=== PATIENT | female | born 1965 | race Caucasian/White ===

== ENCOUNTER 2022-01-01 09:08 | Emergency (ER) | payer SELFPAY ==
[2022-01-01 09:10] VITALS: BP 167/93; PULSE 69; RESP 17; TEMP 35.7; O2SAT 97; BMI 27.8
--- NOTE | 2022-01-01 09:47 | ED.VIS.GI ---
HPI HPI - GI History of Present Illness Chief Complaint: Nausea/Vomiting/Diarrhea Narrative Narrative: 56-year-old female presenting with diffuse crampy abdominal pain, nausea, vomiting. Patient states that this all started on Saturday. The last meal she ate was a cheeseburger for lunch at a place where she normally goes. She states that about 5 PM she started having nausea and vomiting. Over the course of the last 2 days has not been able to hold food or fluids. She thinks she is dehydrated. She did have diarrhea this morning. She denies black or bloody stools. She denies hematemesis or coffee-ground emesis. She has no urinary complaints other than decreased urinary output. She has no cough, fever, shortness of breath. She does admit to sensation of chills. [facility] Medical History (Updated 01/01/22 @ 09:32 by Alejandra Meza) Anxiety GERD (gastroesophageal reflux disease) Hypertension Home Medications duloxetine 60 mg PO DAILY 08/12/17 [History Last Taken Unknown] omeprazole 40 mg capsule,delayed release 40 mg PO DAILY #30 cap 12/24/17 [Rx Last Taken Unknown] famotidine [Pepcid] 20 mg PO DAILY PRN #14 tab 01/01/22 [Rx Last Taken Unknown] gabapentin 1,200 mg PO DAILY 01/01/22 [History Last Taken Unknown] hydroxyzine HCl 25 mg PO BID 01/01/22 [History Last Taken Unknown] metoprolol succinate 50 mg PO DAILY 01/01/22 [History Last Taken Unknown] ondansetron 4 mg PO Q8H PRN #14 tab 01/01/22 [Rx Last Taken Unknown] Allergy/AdvReac Type Severity Reaction Status Date / Time codeine AdvReac very hard Verified 01/01/22 09:09 to awaken Iodine and Iodide Containing AdvReac Hives Verified 01/01/22 09:09 Produc Penicillins AdvReac Rash Verified 01/01/22 09:09 Social History Smoking Status: Former smoker ROS ROS ED Constitutional Constitutional ED: Reports chills; Denies fever(s) ENT ENT ED: Denies rhinorrhea or sore throat Cardiovascular Cardiovascular: Denies chest pain or palpitations Respiratory/Chest Respiratory/Chest: Denies cough, dyspnea or dyspnea on exertion Gastrointestinal Gastrointestinal: Reports abdominal pain, diarrhea, nausea and vomiting Genitourinary Genitourinary ED: Denies dysuria or hematuria Musculoskeletal Musculoskeletal: Reports myalgias; Denies arthralgias Integumentary Denies Abrasions or rash Neurologic Neurologic: Denies headache(s) or paresthesias EXAM Physical Exam Const Vital Signs: 01/01/22 09:10 Temperature 96.3 F L Temperature Source Temporal Pulse Rate 69 Respiratory Rate 17 Blood Pressure 167/93 H Blood Pressure Mean 117 Pulse Ox 97 Oxygen Delivery Method Room Air Positive well nourished General Appearance ED: NAD; Negative for pallor HEENT Reports moist mucous membranes normocephalic Eyes PERRL and EOMs intact bilaterally Resp normal respiratory effort and clear to auscultation bilaterally Cardio regular rate and regular rhythm GI non-distended Inspection: Negative for abdominal distention Auscultation: hyperactive bowel sounds Palpation: soft Back/Spine no CVA tenderness Neuro Sensorium / Orientation: alert, oriented to person, oriented to place and oriented to time Psych mental status grossly normal and thought process normal Skin General Skin Exam: Negative for jaundice or pallor MDM MDM MDM Narrative Medical decision making narrative: Patient presented with nausea, vomiting since Saturday. Her abdominal exam is benign. Vital signs are stable she is afebrile. She is given IV fluids, morphine, Zofran, Pepcid. Blood work is obtained and the patient has no leukocytosis. Hemoglobin is slightly hemoconcentrated at 17.3. Platelets are normal at 371. LFTs are normal. Renal function electrolytes are normal. Urinalysis is negative for infection. Rapid Covid 19 is negative. Patient reevaluated at 11:50 AM and she is feeling very much improved. She is had some water and some ice. She feels well enough to go home. He is counseled on bland diet for today as well as at this for hydrating. Patient will be discharged home with Zofran and Pepcid. She can return precautions. Impression: 1. Nausea/vomiting Lab Data Attestation: I reviewed the patient's lab results. Labs: Laboratory Results - last 24 hr 01/01/22 01/01/22 01/01/22 09:21 09:21 11:13 WBC 9.0 RBC 5.37 Hgb 17.3 H Hct 51.1 H MCV 95.2 MCH 32.2 H MCHC 33.9 RDW Std Deviation 44.6 H RDW Coeff of Pantera 12.7 Plt Count 371 MPV 9.5 Immature Gran % (Auto) 0.200 Neut % (Auto) 74.9 H Lymph % (Auto) 17.2 L [place] % (Auto) 7.3 Eos % (Auto) 0.1 Baso % (Auto) 0.3 Absolute Neuts (auto) 6.7 Absolute Lymphs (auto) 1.55 Nucleated RBC % 0 Sodium 139 Potassium 3.5 Chloride 104 Carbon Dioxide 26.0 Anion Gap 9 BUN 14 Creatinine 0.82 Estim Creat Clear Calc 61.86 Est GFR (MDRD) Af Amer 92 Est GFR (MDRD) Non-Af 76 BUN/Creatinine Ratio 17.1 Glucose 125 H Calcium 9.5 Total Bilirubin 0.70 AST 19 ALT 29 Alkaline Phosphatase 109 Total Protein 7.9 Albumin 3.9 Globulin 4.0 Albumin/Globulin Ratio 1.0 Lipase 64 L Urine Color Yellow Urine Clarity Clear Urine pH 6.0 Ur Specific [place] 1.020 Urine Protein 30 H Urine Glucose (UA) Normal Urine Ketones 50 H Urine Occult Blood Negative Urine Nitrite Negative Urine Bilirubin 1 H Urine Urobilinogen 1 H Ur Leukocyte Esterase 25 H Urine RBC 0 SEEN Urine WBC 0 SEEN Ur Squamous Epith Cells 0 SEEN Amorphous Sediment 2+ Urine Bacteria 0 SEEN Urine Mucus 0 SEEN Discharge Plan Triage Chief Complaint: Nausea/Vomiting/Diarrhea ED Provider: Yonatan Torres Dx/Rx/DC Orders Prescriptions: New ondansetron 4 mg tablet,disintegrating 4 mg PO Q8H PRN (Reason: nausea and vomiting) Qty: 14 RF: 0 famotidine [Pepcid] 20 mg tablet 20 mg PO DAILY PRN (Reason: acid reflux) Qty: 14 RF: 0 No Action duloxetine 30 MG capsule 60 mg PO DAILY RF: 0 metoprolol succinate 50 mg tablet extended release 24 hr 50 mg PO DAILY RF: 0 hydroxyzine HCl 25 mg tablet 25 mg PO BID RF: 0 gabapentin 100 mg capsule 1,200 mg PO DAILY RF: 0 omeprazole 40 MG capsule 40 mg PO DAILY Qty: 30 RF: 1 Primary Care Provider: Lisa Johnson Referrals: Lisa Johnson MD [Primary Care Provider] - Disposition Disposition: Home, Self Care
[2022-01-01 09:52] LABS: Absolute Lymphocyte Count 1.55 X10^3/uL (0.83-4.51); Absolute Neutrophil Count 6.7 X10^3/uL (2.0-7.7); Basophil# 0.03 X10^3/uL; Basophil% 0.3 % (0-1); Eosinophil# 0.01 X10^3/uL; Eosinophils% 0.1 % (0-5); Hematocrit 51.1 % (37-47); Hemoglobin 17.3 g/dL (12.0-15.0); Lymphocyte # 1.55 X10^3/ul (0.83-4.51); Lymphocyte % 17.2 % (19-41); Mean Corp Hgb Conc 33.9 g/dL (32-36); Mean Corpuscular Hgb 32.2 pg (27.0-32.0); Mean Corpuscular Volume 95.2 fL (81-99); Mean Platelet Vol. 9.5 fl (6.2-12.0); Monocyte# 0.66 X10^3/uL; Monocyte% 7.3 % (0-10); NRBC Flagged by Analyzer 0 % (0-5); Neutrophil # 6.73 X10^3/uL (2.7-7.7); Neutrophil % 74.9 % (47-70); Platelet Count 371 K/mm3 (150-450); RBC Distribution Width CV 12.7 % (11.6-14.6); RBC Distribution Width SD 44.6 fl (35.1-43.9); Red Blood Count 5.37 M/mm3 (4.2-5.4)
[2022-01-01] MEDS: Ondansetron 4 MG/2 ML Vial IV (10:02)
[2022-01-01] MEDS: Morphine 4 MG/ML Syringe IV (10:02)
[2022-01-01] MEDS: 0.9% Normal Saline 1,000 ML 1000 ML IV (10:02)
[2022-01-01 10:08] LABS: AST(SGOT) 19 U/L (15-37); Alanine Aminotransfer ALT/SGPT 29 U/L (13-56); Albumin, Serum 3.9 g/dL (3.2-5.0); Alkaline Phosphatase 109 U/L (45-117); Anion Gap 9 (5-15); BUN 14 mg/dL (7-18); BUN/Creat Ratio 17.1 RATIO (10-20); Calcium,Total 9.5 mg/dL (8.5-10.1); Chloride 104 mmol/L (98-107); Creatinine, Serum 0.82 mg/dL (0.55-1.02); EST Glomerular Filtration Rate 76 mL/min (>60); Est Glom Filt Rate - Afr Amer 92 mL/min (>60); Estimated Creatinine Clearance 61.86 ml/min; Glucose 125 mg/dL (74-106); Lipase 64 U/L (73-393); Potassium 3.5 mmol/L (3.5-5.1); Protein, Total 7.9 g/dL (6.4-8.2); Sodium Level 139 mmol/L (136-145)
[2022-01-01] MEDS: Famotidine 200 MG/20 ML MDV 20 MG in 0.9% Normal Saline (Pres. free 8 ML 300 MG IV (11:10)
[2022-01-01 11:23] LABS: Bacteria 0 SEEN /hpf (None Seen); Mucous, Urine 0 SEEN /hpf (<or=2+); Red Blood Cells-Urine 0 SEEN /hpf (0-5); Squamous Epithelial Cells - UA 0 SEEN /hpf (5-10); White Blood Cells 0 SEEN /hpf (0-5)
[2022-01-01 11:27] LABS: Color, Urine Yellow (Yellow); Glucose, Dipstick Normal (Normal); Ketone-Dipstick 50 mg/dl (Negative); Leukocyte Esterase-Dipstick 25 /ul (Negative); Nitrite-Dipstick Negative (Negative); Occult Blood-Urine Negative /ul (Negative); Protein-Dipstick 30 mg/dl (Negative); Urine Clarity Clear (Clear); Urine Urobilinogen 1 mg/dl (Normal)
[2022-01-01 11:32] LABS: Urine Bilirubin Dipstick 1 mg/dL (Negative)
[2022-01-01 11:35] LABS: Amorphous Sediment 2+
[2022-01-01 12:27] VITALS: BP 157/95; PULSE 66; RESP 16; O2SAT 98
== END 2022-01-01 23:59 | disposition home or self-care (01) ==
PROVIDERS: Emergency Provider Student in an Organized Health Care Education/Training Program; PCP Family Medicine; Visit Provider Student in an Organized Health Care Education/Training Program
DX: R11.2 Nausea with vomiting, unspecified (principal); R19.7 Diarrhea, unspecified; R10.84 Generalized abdominal pain; I10 Essential (primary) hypertension; Z20.822 Contact with and (suspected) exposure to COVID-19; F41.9 Anxiety disorder, unspecified; Z79.899 Other long term (current) drug therapy; Z87.891 Personal history of nicotine dependence
CPT/HCPCS: 80053; 81001; 83690; 85025; 87426; 96361; 96374; 96375; 99283; J7030; A4216; J2405; J3490

== ENCOUNTER → 2023-03-12 | Outpatient (CLI) | payer OTHER, MEDICAID, SELFPAY ==
--- NOTE | 2023-03-12 10:33 | RAD_ITS ---
STUDY: X-RAY - RIGHT CLAVICLE REASON FOR EXAM: Female, 57 years old. PAIN IN RIGHT SHOULDER TECHNIQUE: 2 view(s) of the clavicle. COMPARISON: None. FINDINGS: Normal clavicle. Normal acromioclavicular articulation. Normal visualized sternoclavicular articulation. Normal visualized pulmonary apex. RAD/Clavicle IMPRESSION: Normal x-ray examination of the clavicle. Electronically Signed: Gilbert Cuellar MD at 18:37 EDT ,
--- NOTE | 2023-03-12 10:43 | RAD_ITS ---
INDICATION: PAIN IN RIGHT SHOULDER EXAMINATION/TECHNIQUE: X-RAY - RIGHT XR Shoulder Min 2 Views 5 VIEWS COMPARISON: None FINDINGS: SOFT TISSUES: No soft tissue swelling or gas. No radiopaque foreign body. BONES/JOINTS: No acute fracture or subluxation. Glenohumeral and coracoclavicular relationships are maintained. Mild acromioclavicular joint space narrowing and small osteophytes. No sclerotic or destructive changes observed. RAD/Shoulder min 2 Views IMPRESSION: Acromioclavicular DJD. Electronically Signed: Danny Au MD at 18:05 EDT ,
[2023-03-12 11:25] LABS: Hemoglobin 15.9 g/dL (12.0-15.0); Mean Corp Hgb Conc 33.8 g/dL (32-36); Mean Corpuscular Hgb 33.3 pg (27.0-32.0); Mean Corpuscular Volume 98.5 fL (81-99); Mean Platelet Vol. 9.1 fl (6.2-12.0); Platelet Count 308 K/mm3 (150-450); RBC Distribution Width CV 13.9 % (11.6-14.6); RBC Distribution Width SD 51.1 fl (35.1-43.9); Red Blood Count 4.77 M/mm3 (4.2-5.4); White Blood Count 5.6 K/mm3 (4.4-11.0)
[2023-03-12 11:45] LABS: Hemoglobin A1c 5.5 % (3.8-5.6)
[2023-03-12 12:06] LABS: ALB/GLOB Ratio 0.9 RATIO (0.9-2.4); AST(SGOT) 20 U/L (15-37); Alanine Aminotransfer ALT/SGPT 18 U/L (13-56); Albumin, Serum 3.7 g/dL (3.2-5.0); Alkaline Phosphatase 122 U/L (45-117); BUN 13 mg/dL (7-18); BUN/Creat Ratio 15.3 RATIO (10-20); Calcium,Total 9.4 mg/dL (8.5-10.1); Creatinine, Serum 0.85 mg/dL (0.55-1.02); EST Glomerular Filtration Rate 72 mL/min (>60); Est Glom Filt Rate - Afr Amer 88 mL/min (>60); Globulin 4.1 g/dL (2.2-4.2); Glucose 108 mg/dL (74-106); Lipase 30 U/L (13-75); Protein, Total 7.8 g/dL (6.4-8.2)
[2023-03-12 12:07] LABS: Anion Gap 8 (5-15); Chloride 102 mmol/L (98-107); Cholesterol 281 mg/dL (200); High Density Lipoprotein 78 mg/dL; Magnesium 2.5 mg/dL (1.6-2.6); Potassium 3.5 mmol/L (3.5-5.1); Sodium Level 136 mmol/L (136-145); Thyroid Stim Hormone (TSH) 5.53 uIU/mL (0.358-3.74); Triglycerides 182 mg/dL; Very Low Density Lipoprotein 36 mg/dL (5-40)
== END | disposition home or self-care (01) ==
DX: M25.511 Pain in right shoulder (principal); I10 Essential (primary) hypertension; E78.5 Hyperlipidemia, unspecified; F10.10 Alcohol abuse, uncomplicated; E55.9 Vitamin D deficiency, unspecified; R73.03 Prediabetes; K21.9 Gastro-esophageal reflux disease without esophagitis
CPT/HCPCS: 36415; 73000; 73030; 80053; 80061; 82306; 83036; 83690; 83735; 84443; 85027

== ENCOUNTER 2023-06-07 18:19 | Inpatient (IN) | payer OTHER, MEDICAID, SELFPAY ==
[2023-06-07 18:21] VITALS: BP 152/89; PULSE 89; RESP 17; TEMP 36.7; O2SAT 99; BMI 27.8
--- NOTE | 2023-06-07 19:39 | HP.PCM.HOS_ITS ---
HPI - General General Date of Admission: 06/07/23 Date of Service: 06/07/23 Chief Complaint: EtOH abuse/withdrawal. HPI Narrative The patient is a 58 y/o F w/ PMHx: Overweight, HLD, HTN, GERD, Anxiety and Depression, Tobacco use, EtOH abuse (3 bottles, smaller of crown daily), Cannabis use who presents to the [facility] ED on 06/07/23 with history of onset acute EtOH withdrawal, onset starting late afternoon/early evening on day of presentation following last EtOH intake AM of day of presentation with onset of nausea, tremors, agitation, tactile disturbances. Patient interested in attaining sober status. Work-up in the ED included T98.1, heart rate 89, BP 152/89, respiratory rate 17, 99% on room air, see see with WC 6.0, and 114.9, platelet 318 without marked shift, CMP unremarkable, UDS with positive cannabis, urine test negative, ethyl alcohol level 146. COUNT INCLUDES THE [facility] Medical History (Updated 06/07/23 @ 21:[address] Jennifer Jeffries MD) Alcohol abuse Anxiety and depression GERD (gastroesophageal reflux disease) Hyperlipidemia Hypertension Overweight Tobacco use Vocal cord disease Home Medications duloxetine 30 mg capsule,delayed release 60 mg PO DAILY 08/12/17 [History Last Taken Unknown] omeprazole 40 mg capsule,delayed release 40 mg PO DAILY #30 caps 12/24/17 [Rx Last Taken Unknown] famotidine 20 mg tablet (Pepcid) 20 mg PO DAILY PRN acid reflux #14 tabs 01/01/22 [Rx Last Taken Unknown] gabapentin 100 mg capsule 1,200 mg PO DAILY 01/01/22 [History Last Taken Unknown] hydroxyzine HCl 25 mg tablet 25 mg PO BID 01/01/22 [History Last Taken Unknown] metoprolol succinate 50 mg tablet,extended release 24 hr 50 mg PO DAILY 01/01/22 [History Last Taken Unknown] ondansetron 4 mg disintegrating tablet 4 mg PO Q8H PRN nausea and vomiting #14 tabs 01/01/22 [Rx Last Taken Unknown] amitriptyline 50 mg tablet 50 mg PO QHS 06/07/23 [History Last Taken Unknown] atorvastatin 10 mg tablet 10 mg PO QHS 06/07/23 [History Last Taken Unknown] clonidine HCl 0.1 mg tablet 0.1 mg PO BID PRN anxiety 06/07/23 [History Last Taken Unknown] lisinopril 5 mg tablet 5 mg PO DAILY 06/07/23 [History Last Taken Unknown] Allergy/AdvReac Type Severity Reaction Status Date / Time codeine AdvReac very hard Verified 01/01/22 09:09 to awaken Iodine and Iodide Containing AdvReac Hives Verified 01/01/22 09:09 Produc Penicillins AdvReac Rash Verified 01/01/22 09:09 Family History (Updated 06/07/23 @ 21:[address] Jennifer Jeffries MD) Mother CVA (cerebral vascular accident) Hypertension Heart disease Diabetes Father Alcoholism Surgical History (Updated 06/07/23 @ 21:[address] Jennifer Jeffries MD) H/O rectal polypectomy History of oral surgery S/P foot surgery, right Social History (Updated 06/07/23 @ 21:[address] Jennifer Jeffries MD) household members: none Smoking Status: Current every day smoker tobacco type: cigarettes Smoking packs per day: 0.75 Smoking cigarettes per day: 15.0 alcohol intake: current alcohol intake frequency: 3 or more drinks per day details: Several crown drinks daily. substance use type: marijuana ROS ROS Narrative Admission Review of Systems: CONSTITUTIONAL: No weight loss, fever, chills, + weakness or fatigue. HEENT: + Strabismus. Eyes: No visual loss, blurred vision, double vision or yellow sclerae. Ears, Nose, Throat: No hearing loss, sneezing, congestion, runny nose or sore throat. SKIN: No rash or itching, lesions, wounds. CARDIOVASCULAR: No chest pain, chest pressure or chest discomfort, palpitations, edema, orthopnea, syncopal events. RESPIRATORY: No shortness of breath, cough or sputum, wheezing, hemoptysis. GASTROINTESTINAL: + anorexia, nausea. No vomiting or diarrhea, abdominal pain, melena, BRBPR. GENITOURINARY: No dysuria, frequency, urgency or retention. NEUROLOGICAL: + Mild tremors, mild tactile disturbances. No headache, dizziness, syncope, paralysis, ataxia, numbness or tingling in the extremities, focal weakness, change in bowel or bladder control, seizure. MUSCULOSKELETAL: No muscle, back pain, joint pain or stiffness. HEMATOLOGIC: No anemia, bleeding or bruising. LYMPHATICS: No enlarged nodes. No history of splenectomy. PSYCHIATRIC: + history of depression or anxiety. ENDOCRINOLOGIC: No reports of sweating, cold or heat intolerance. No polyuria or polydipsia. ALLERGIES: + history of hives. Vital Signs Vital Signs Vital Signs: 06/07/23 18:21 Temperature 98.1 F Temperature Source Temporal Pulse Rate 89 Respiratory Rate 17 Blood Pressure 152/89 H Blood Pressure Mean 110 Pulse Ox 99 Oxygen Delivery Method Room Air Weight Weight: 157 lb 1.6 oz Body Mass Index (BMI) 27.8 Physical Exam Narrative Physical Examination: General: Awake, alert, oriented x 3 and cooperative, seated upright in the ED bed, fatigued, mildly tremulous and restless. Skin: Normal color, normal turgor, no icterus, no cyanosis. HEENT: AT/NC, EOMI, PERRLA, moderately dry MM, noted strabismus which is chronic, no carotid bruits or JVD noted. Lungs: CTA bilaterally, moderate effort, mild decrease BL bases, no rales, ro nchi or wheezing. Heart: Regular rate and rhythm; no gallop, rub audible. Abdomen: Soft, mild generalized discomfort but no rebound or guarding and more so in the right upper quadrant/epigastric region, ND, hyperactive BS, + appreciated mild HM. Extremities: No cyanosis, clubbing, or edema. Neurological: Patient awake, alert, oriented as noted, cognitive function intact; pupils equally reactive to light and accommodation, cranial nerves II- XII grossly normal, moving all 4 extremities, no focal deficits, strength moderately globally decreased secondary to acute presentation, mildly tremulous, mild tactile disturbances noted. Psychiatric: Affect appears fatigued, no acute evidence of depressive or anxiety feelings but does have underlying history. Results Lab / Micro Data 06/07/23 19:40 06/07/23 19:40 Assessment & Plan Assessment/Plan (1) Alcohol withdrawal: PLAN: Plan The patient is a 58 y/o F w/ PMHx: Overweight, HLD, HTN, GERD, Anxiety and Depression, Tobacco use, EtOH abuse (3 bottles, smaller of crown daily), Cannabis use who presents to the [facility] ED on 06/07/23 with history of onset acute EtOH withdrawal. #1. Acute EtOH Withdrawal: Will admit to medical surgical floor, ED labs obtained with no acute concerning findings, UDS with positive cannabis otherwise not marked, at the alcohol level initial 146. Given interest in sobriety, will initiate and continue on protocol with taper course of Phenobarbital, as needed gabapentin, Catapres, Bentyl, Vistaril, IV fluids, IV antiemetics, Tylenol as needed for pain. Will consult Case management for assistance for transition to n ext level of rehabilitation care. Mag, phos pending. Maintain on CIWA protocol concurrently. #2. Anxiety and depression: We will continue patient home low-dose hydroxyzine regimen as well as duloxetine. Additionally would benefit from aggressive counseling as likely contributing to her substance abuse. Clarifying but patient also previously noted to be on amitriptyline 50 mg nightly, will add if appropriate. #3. Hypertension: Continue home regimen including metoprolol, lisinopril, PRN hydralazine. #4. Hyperlipidemia: Continue home statin regimen. #5. Overweight: Weight loss and lifestyle changes encouraged. #6. Tobacco Abuse: Encouraged cessation, inpatient consultation per RT, NR if desired. #7. GERD: We will continue patient on PPI. #8. DVT prophylaxis: Low risk. Charges/Coding Visit Charges Inpatient E&M: 69293 Init Hosp L2
--- NOTE | 2023-06-07 19:44 | EX.ED.DYSGE1 ---
HPI History of Present Illness Chief Complaint: Substance Abuse Detail of Chief Complaint: [facility] for alcohol detox Informant: patient and family Onset/Context/Timing Onset: - (Years) Context: Sudden Onset Timing: Continuous Quality: Drink of choice is whiskey. Less than a pint a day Location: Home Current Severity: Mild Maximum Severity: Severe Worsened by: Abstinence Relieved by: Drinking alcohol Associated Symptoms Associated Symptoms: Presently none Narrative Narrative: Patient is a 58-year-old woman who is never been in detox. She has history of peptic ulcer disease, hypertension, neuropathy who presents for inpatient therapy of detox. She drinks slightly less than a pint of whiskey a day. She has been drinking for many years. She denies hematuria, bleeding of her gums, bruising easily black or maroon stool. Her last drink was approximately 0930. Prior similar symptoms: No Recent Illness/Hospitalization: No PFSH PFSH Medical History Alcohol abuse Anxiety and depression GERD (gastroesophageal reflux disease) Hyperlipidemia Hypertension Overweight Tobacco use Home Medications duloxetine 30 mg capsule,delayed release 60 mg PO DAILY 08/12/17 [History Last Taken Unknown] omeprazole 40 mg capsule,delayed release 40 mg PO DAILY #30 caps 12/24/17 [Rx Last Taken Unknown] famotidine 20 mg tablet (Pepcid) 20 mg PO DAILY PRN acid reflux #14 tabs 01/01/22 [Rx Last Taken Unknown] gabapentin 100 mg capsule 1,200 mg PO DAILY 01/01/22 [History Last Taken Unknown] hydroxyzine HCl 25 mg tablet 25 mg PO BID 01/01/22 [History Last Taken Unknown] metoprolol succinate 50 mg tablet,extended release 24 hr 50 mg PO DAILY 01/01/22 [History Last Taken Unknown] ondansetron 4 mg disintegrating tablet 4 mg PO Q8H PRN nausea and vomiting #14 tabs 01/01/22 [Rx Last Taken Unknown] amitriptyline 50 mg tablet 50 mg PO QHS 06/07/23 [History Last Taken Unknown] atorvastatin 10 mg tablet 10 mg PO QHS 06/07/23 [History Last Taken Unknown] clonidine HCl 0.1 mg tablet 0.1 mg PO BID PRN anxiety 06/07/23 [History Last Taken Unknown] lisinopril 5 mg tablet 5 mg PO DAILY 06/07/23 [History Last Taken Unknown] Allergy/AdvReac Type Severity Reaction Status Date / Time codeine AdvReac very hard Verified 01/01/22 09:09 to awaken Iodine and Iodide Containing AdvReac Hives Verified 01/01/22 09:09 Produc Penicillins AdvReac Rash Verified 01/01/22 09:09 Social History (Updated 06/07/23 @ 19:[address] Adam Mccormick MD) Smoking Status: Current every day smoker tobacco type: cigarettes alcohol intake: current alcohol intake frequency: other substance use type: does not use ROS ROS ED Constitutional Constitutional ED: Reports sweats; Denies chills, fever(s), subjective or weight loss Eyes Eyes: Denies blurry vision, change in vision or diplopia ENT ENT ED: Denies ear pain, rhinorrhea or sore throat Cardiovascular Cardiovascular: Reports palpitations and racing heartbeat; Denies chest pain Respiratory/Chest Respiratory/Chest: Denies cough, dyspnea or dyspnea on exertion Gastrointestinal Gastrointestinal: Denies abdominal pain, nausea or vomiting Genitourinary Genitourinary ED: Denies dysuria, hematuria or urinary frequency Musculoskeletal Musculoskeletal: Denies arthralgias, back pain, myalgias or neck pain Neurologic Neurologic: Denies headache(s), paresthesias or weakness Psychiatric Psychiatric: Denies anxiety or depression Hematologic/Lymphatic Hematologic/Lymphatic: Reports systems reviewed and no addt'l complaints, except as documented EXAM Physical Exam Const Vital Signs: 06/07/23 18:21 Temperature 98.1 F Temperature Source Temporal Pulse Rate 89 Respiratory Rate 17 Blood Pressure 152/89 H Blood Pressure Mean 110 Pulse Ox 99 Oxygen Delivery Method Room Air Positive well nourished and well developed General Appearance ED: well developed; Negative for pallor HEENT Reports moist mucous membranes Eyes PERRL and EOMs intact bilaterally General Eye ED: Negative for pale conjunctiva or scleral icterus Neck no lymphadenopathy, supple and no JVD Chest Wall inspection of chest normal and palpation of chest normal Resp normal respiratory effort and clear to auscultation bilaterally Cardio regular rate, regular rhythm, S1 normal heart sound, S2 normal heart sound and no murmurs GI normal to inspection, nondistended, normoactive bowel sounds, non-tender, non-distended and no masses; Negative for hepatosplenomegaly Back/Spine no CVA tenderness Extremity normal to inspection Neuro oriented x3 and CN's II-XII intact bilaterally Sensorium / Orientation: alert Psych mental status grossly normal Skin no rashes or lesions noted, no wounds and skin turgor normal General Skin Exam: Negative for jaundice or pallor MDM MDM MDM Narrative Medical decision making narrative: Action medicine order set was initiated. We will assess liver enzymes, rule out anemia, assess for thrombocytopenia. Patient has presently no symptoms of withdrawal. She does have symptoms of withdrawal when she does not drink. She has awakened in the morning with shakes, palpitations, rapid heartbeat and sweats. She states those symptoms resolved when she drinks. She is not had a drink since 9:30 AM. Will discuss case with hospitalist and plan is admission to [facility] for alcohol dependency and abuse. Lab Data Attestation: I reviewed the patient's lab results. Lab results narrative: CBC is normal. Comprehensive metabolic panel is normal. Urine tox is positive for cannabis. test was negative. Labs: Laboratory Results - last 24 hr 06/07/23 06/07/23 19:40 20:10 WBC 6.0 RBC 4.65 Hgb 14.9 Hct 44.7 MCV 96.1 MCH 32.0 MCHC 33.3 RDW Std Deviation 45.2 H RDW Coeff of [place]tera 12.8 Plt Count 318 MPV 8.6 Immature Gran % (Auto) 0.300 Neut % (Auto) 52.7 Lymph % (Auto) 39.5 [place] % (Auto) 6.5 Eos % (Auto) 0.7 Baso % (Auto) 0.3 Absolute Neuts (auto) 3.1 Absolute Lymphs (auto) 2.36 Nucleated RBC % 0 Sodium 142 Potassium 3.5 Chloride 106 Carbon Dioxide 28.0 Anion Gap 8 BUN 8 Creatinine 0.79 Estim Creat Clear Calc 62.64 Est GFR (MDRD) Af Amer 96 Est GFR (MDRD) Non-Af 79 BUN/Creatinine Ratio 10.2 Glucose 88 Calcium 8.9 Phosphorus 3.3 Magnesium 2.6 Total Bilirubin 0.20 AST 23 ALT 33 Alkaline Phosphatase 114 Total Protein 7.6 Albumin 3.8 Globulin 3.8 Albumin/Globulin Ratio 1.0 Urine Test Negative Urine Opiates Screen NEGATIVE Urine Methadone Screen NEGATIVE Ur Barbiturates Screen NEGATIVE Ur Phencyclidine Scrn NEGATIVE Ur Amphetamines Screen NEGATIVE MDMA (Ecstasy) Screen NEGATIVE U Benzodiazepines Scrn NEGATIVE Urine Cocaine Screen NEGATIVE U Cannabinoids Screen POSITIVE H Ur Drug Screen Comment Discharge Plan Dx/Rx/DC Orders Clinical Impression: Anxiety with depression, Alcohol abuse with physiological dependence, History of gastroesophageal reflux (GERD) Disposition Disposition: Acute Care Hospital [facility] [place]
[2023-06-07 19:54] LABS: Absolute Lymphocyte Count 2.36 X10^3/uL (0.83-4.51); Absolute Neutrophil Count 3.1 X10^3/uL (2.0-7.7); Basophil# 0.02 X10^3/uL; Basophil% 0.3 % (0-1); Eosinophil# 0.04 X10^3/uL; Eosinophils% 0.7 % (0-5); Hematocrit 44.7 % (37-47); Hemoglobin 14.9 g/dL (12.0-15.0); Lymphocyte # 2.36 X10^3/ul (0.83-4.51); Lymphocyte % 39.5 % (19-41); Mean Corp Hgb Conc 33.3 g/dL (32-36); Mean Corpuscular Volume 96.1 fL (81-99); Mean Platelet Vol. 8.6 fl (6.2-12.0); Monocyte# 0.39 X10^3/uL; Monocyte% 6.5 % (0-10); NRBC Flagged by Analyzer 0 % (0-5); Neutrophil # 3.14 X10^3/uL (2.7-7.7); Neutrophil % 52.7 % (47-70); Platelet Count 318 K/mm3 (150-450); RBC Distribution Width CV 12.8 % (11.6-14.6); RBC Distribution Width SD 45.2 fl (35.1-43.9); Red Blood Count 4.65 M/mm3 (4.2-5.4)
[2023-06-07 20:11] LABS: AST(SGOT) 23 U/L (15-37); Alanine Aminotransfer ALT/SGPT 33 U/L (13-56); Albumin, Serum 3.8 g/dL (3.2-5.0); Alkaline Phosphatase 114 U/L (45-117); Anion Gap 8 (5-15); BUN 8 mg/dL (7-18); BUN/Creat Ratio 10.2 RATIO (10-20); Calcium,Total 8.9 mg/dL (8.5-10.1); Chloride 106 mmol/L (98-107); Creatinine, Serum 0.79 mg/dL (0.55-1.02); EST Glomerular Filtration Rate 79 mL/min (>60); Est Glom Filt Rate - Afr Amer 96 mL/min (>60); Estimated Creatinine Clearance 62.64 ml/min; Globulin 3.8 g/dL (2.2-4.2); Glucose 88 mg/dL (74-106); Magnesium 2.6 mg/dL (1.6-2.6); Potassium 3.5 mmol/L (3.5-5.1); Protein, Total 7.6 g/dL (6.4-8.2); Sodium Level 142 mmol/L (136-145)
[2023-06-07 20:16] LABS: Internal QC Validated? YES +Cl - CLEAR BKGD; Pregnancy, Urine Negative Negative
[2023-06-07 20:16] LABS: Phosphorus 3.3 mg/dL (2.5-4.9)
[2023-06-07 20:25] LABS: Amphetamine Urine VISTA NEGATIVE (<1000 ng/mL); Barbiturate Urine VISTA NEGATIVE (< 200 ng/mL); Benzodiazepine Urine VISTA NEGATIVE (< 200 ng/mL); Cocaine Urine VISTA NEGATIVE (< 300 ng/mL); Ecstacy Urine VISTA NEGATIVE (< 500 ng/mL); Methadone Urine VISTA NEGATIVE (< 300 ng/mL); PCP Urine VISTA NEGATIVE (< 25 ng/mL); THC Urine VISTA POSITIVE (< 50 ng/mL); Vista UDS pH Range 5
[2023-06-07 20:38] VITALS: BP 158/107; PULSE 79; RESP 18; TEMP 36.4; O2SAT 96
[2023-06-07 21:09] VITALS: RESP 17
--- NOTE | 2023-06-07 21:43 | CM.ED ---
Social Work Pt requesting to detox from alcohol. Treatment Navigator for RAMP notified of patient to be admitted. Sarah Bergeron EXPEDITION SUPERVISOR, CORNER BEAD OPERATOR
[2023-06-07 23:42] VITALS: BP 150/88; PULSE 72; O2SAT 97
[2023-06-08] VITALS (10 sets, daily range): BP systolic 124–169; BP diastolic 74–100; PULSE 63–90; RESP 14–16; TEMP 36.2–37.1; O2SAT 95–99; BMI 27.3
[2023-06-08] MEDS: Phenobarbital 32.4 MG Tablet 64.8 MG PO ×7 (01:26→23:37)
[2023-06-08] MEDS: Ondansetron 8 MG Tablet PO (01:27)
[2023-06-08] MEDS: Acetaminophen 325 MG Tablet 650 MG PO (01:27)
[2023-06-08] MEDS: hydrOXYzine PAM 25 MG Capsule PO ×3 (01:27→21:25)
[2023-06-08] MEDS: Lactated Ringers 1,000 ML 125 ML IV (01:50)
[2023-06-08] MEDS: 0.9% Saline Lock 10 ML Syringe IV (01:50)
[2023-06-08 02:34] LABS: Syphilis Antibodies Non-reactive
--- NOTE | 2023-06-08 02:43 | NURSING ---
Per Dr. 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 Dr. Jeffries does not want this to be the reason pt leaves AMA on Saturday just to take care of that. Per MDs verbal order, okay for pt to have laptop [facility], then locked back up after she is done taking care of her finances.
--- NOTE | 2023-06-08 06:58 | PN.HOSP_ITS ---
Reason for Visit Reason for Visit: Diagnoses Alcohol use, unspecified with withdrawal, unspecified (06/07/23) Subjective Subjective 58-year-old female admitted with acute alcohol withdrawal Objective Data Objective Data Vital Signs: Vital Signs Temp Pulse Resp BP Pulse Ox O2 Del Method 98 F 78 16 134/77 H 96 Room Air 06/08/23 04:07 06/08/23 04:07 06/08/23 04:07 06/08/23 04:07 06/08/23 04:07 06/08/23 04:07 Oxygen Delivery Method Room Air Weight: 70 kg Body Mass Index (BMI) 27.3 Intake & Output: Intake and Output for Last 24 Hours 06/06/23 06/07/23 06/08/23 23:59 23:59 23:59 Intake Total 400 / 400 Balance 400 / 400 Lab / Micro Data 06/07/23 19:40 06/07/23 19:40 Labs: Laboratory Results - last 24 hr 06/07/23 19:40: WBC 6.0, RBC 4.65, Hgb 14.9, Hct 44.7, MCV 96.1, MCH 32.0, MCHC 33.3, RDW Std Deviation 45.2 H, RDW Coeff of Pantera 12.8, Plt Count 318, MPV 8.6, Immature Gran % (Auto) 0.300, Neut % (Auto) 52.7, Lymph % (Auto) 39.5, [place] % (Auto) 6.5, Eos % (Auto) 0.7, Baso % (Auto) 0.3, Absolute Neuts (auto) 3.1, Absolute Lymphs (auto) 2.36, Nucleated RBC % 0, Sodium 142, Potassium 3.5, Chloride 106, Carbon Dioxide 28.0, Anion Gap 8, BUN 8, Creatinine 0.79, Estim Creat Clear Calc 62.64, Est GFR (MDRD) Af Amer 96, Est GFR (MDRD) Non-Af 79, BUN/Creatinine Ratio 10.2, Glucose 88, Calcium 8.9, Phosphorus 3.3, Magnesium 2.6, Total Bilirubin 0.20, AST 23, ALT 33, Alkaline Phosphatase 114, Total Protein 7.6, Albumin 3.8, Globulin 3.8, Albumin/Globulin Ratio 1.0, Ethyl Alcohol 146.0, Syphilis Total Ab Non-reactive 06/07/23 20:10: Urine Test Negative, Urine Opiates Screen NEGATIVE, Urine Methadone Screen NEGATIVE, Ur Barbiturates Screen NEGATIVE, Ur Phencyclidine Scrn NEGATIVE, Ur Amphetamines Screen NEGATIVE, MDMA (Ecstasy) Screen NEGATIVE, U Benzodiazepines Scrn NEGATIVE, Urine Cocaine Screen NEGATIVE, U Cannabinoids Screen POSITIVE H, Ur Drug Screen Comment Physical Exam Narrative GENERAL: cooperative HEENT: Atraumatic; normocephalic EYES; Anicteric, Normal Conjunctiva NECK; supple, normal thyroid, RESPIRATORY: Diminished to auscultation CARDIOVASCULAR: Regular S1 S2, GI: soft, normoactive bowel sounds, : No Renal angle tenderness; EXTREMITIES: No edema, no clubbing, MUSCULOSKELETAL: no muscle wasting NEURO: Awake; no lateralizing signs. SKIN: No Rash PSYCH; Flat affect Assessment & Plan Assessment/Plan (1) Alcohol withdrawal: QUALIFIERS: Complication of substance-induced condition: uncomplicated Qualified Code(s): F10.930 - Alcohol use, unspecified with withdrawal, uncomplicated PLAN: Plan 58-year-old female admitted with acute alcohol withdrawal 1. Acute alcohol withdrawal Patient has been admitted to regular nursing floor managed with phenobarb taper in addition to adjuvant medication 2. Depression with anxiety ? Did continue patient home medication 3. Hypertension - Blood pressure controlled, home medications continued with dose adjustment as needed 4. Dyslipidemia -Patient is on statin therapy, continued at home dose 5. Tobacco dependence - Counseled on cessation, offered nicotine patch for tobacco cravings 6. GERD On PPI 7. DVT prophylaxis ? Did encourage early ambulation Time spent in the patient's overall evaluation,decision-making process, review of diagnostic data, adjustment of management, discussion with other providers, nursing nursing and ancillary staff involved in patient's care documentation, 35 minutes Charges/Coding Visit Charges Inpatient E&M: 66282 Subs Hosp L2
[2023-06-08] MEDS: Folic Acid 1 MG Tablet PO (07:52)
[2023-06-08] MEDS: Thiamine Hydrochloride 100 MG Tablet PO (07:52)
[2023-06-08] MEDS: Multivitamins,Ther W-Minerals Tablet 1 TABLET PO (07:53)
[2023-06-08] MEDS: DULoxetine Hcl 30 MG Capsule 60 MG PO (09:14)
[2023-06-08] MEDS: Pantoprazole Sodium 40 MG Tablet PO (09:15)
[2023-06-08] MEDS: Metoprolol(XL)Succ 50 MG Tablet PO (09:15)
[2023-06-08] MEDS: Lisinopril 5 MG Tablet PO (09:16)
[2023-06-08] MEDS: Amitriptyline 25 MG Tablet 50 MG PO (21:24)
[2023-06-08] MEDS: Atorvastatin Calcium 10 MG Tablet PO (21:25)
[2023-06-09 03:08] VITALS: BP 128/94; PULSE 61; RESP 16; TEMP 36.6; O2SAT 98
[2023-06-09] MEDS: Phenobarbital 32.4 MG Tablet 64.8 MG PO ×5 (03:17→20:20)
--- NOTE | 2023-06-09 07:36 | PCM.PN.HOSP ---
Reason for Visit Reason for Visit: Diagnoses Alcohol use, unspecified with withdrawal, uncomplicated (06/07/23) Alcohol use, unspecified with withdrawal, unspecified (06/07/23) Subjective Subjective Patient seen had a relatively uneventful night has tolerated the phenobarb taper well so far Objective Data Objective Data Vital Signs: Vital Signs Temp Pulse Resp BP Pulse Ox O2 Del Method 97.9 F 61 16 128/94 H 98 Room Air 06/09/23 03:08 06/09/23 03:08 06/09/23 03:08 06/09/23 03:08 06/09/23 03:08 06/09/23 03:15 Oxygen Delivery Method Room Air Weight: 70 kg Body Mass Index (BMI) 27.3 Intake & Output: Intake and Output for Last 24 Hours 06/07/23 06/08/23 06/09/23 23:59 23:59 23:59 Intake Total 2750 / 2750 250 / 250 Balance 2750 / 2750 250 / 250 Lab / Micro Data 06/07/23 19:40 06/07/23 19:40 Physical Exam Narrative GENERAL: cooperative HEENT: Atraumatic; normocephalic EYES; Anicteric, Normal Conjunctiva NECK; supple, normal thyroid, RESPIRATORY: Diminished to auscultation CARDIOVASCULAR: Regular S1 S2, GI: soft, normoactive bowel sounds, : No Renal angle tenderness; EXTREMITIES: No edema, no clubbing, MUSCULOSKELETAL: no muscle wasting NEURO: Awake; no lateralizing signs. SKIN: No Rash PSYCH; Flat affect Assessment & Plan Assessment/Plan (1) Alcohol withdrawal: QUALIFIERS: Complication of substance-induced condition: uncomplicated Qualified Code(s): F10.930 - Alcohol use, unspecified with withdrawal, uncomplicated PLAN: Plan 58-year-old female admitted with acute alcohol withdrawal 1. Acute alcohol withdrawal Patient has been admitted to regular nursing floor managed with phenobarb taper in addition to adjuvant medication ? 06/09/2023; patient has tolerated phenobarb taper. 2. Depression with anxiety ? Did continue patient home medication 3. Hypertension - Blood pressure controlled, home medications continued with dose adjustment as needed 4. Dyslipidemia -Patient is on statin therapy, continued at home dose 5. Tobacco dependence - Counseled on cessation, offered nicotine patch for tobacco cravings 6. GERD On PPI 7. DVT prophylaxis ? Did encourage early ambulation Time spent in the patient's overall evaluation,decision-making process, review of diagnostic data, adjustment of management, discussion with other providers, nursing nursing and ancillary staff involved in patient's care documentation, 35 minutes Charges/Coding Visit Charges Inpatient E&M: 90396 Subs Hosp L2
[2023-06-09 07:55] VITALS: PULSE 64
[2023-06-09] MEDS: Metoprolol(XL)Succ 50 MG Tablet PO (07:55)
[2023-06-09] MEDS: Lisinopril 5 MG Tablet PO (07:56)
[2023-06-09] MEDS: hydrOXYzine PAM 25 MG Capsule PO ×2 (07:56→20:27)
[2023-06-09] MEDS: DULoxetine Hcl 30 MG Capsule 60 MG PO (07:56)
[2023-06-09] MEDS: Pantoprazole Sodium 40 MG Tablet PO (07:56)
[2023-06-09] MEDS: Folic Acid 1 MG Tablet PO (07:56)
[2023-06-09] MEDS: Multivitamins,Ther W-Minerals Tablet 1 TABLET PO (07:56)
[2023-06-09] MEDS: Thiamine Hydrochloride 100 MG Tablet PO (07:56)
[2023-06-09 08:09] VITALS: O2SAT 97
[2023-06-09 08:20] VITALS: BP 132/92; PULSE 64; RESP 18; TEMP 36.5; O2SAT 99
[2023-06-09 14:06] VITALS: BP 133/80; PULSE 69; RESP 18; TEMP 36.5; O2SAT 99
[2023-06-09 20:05] VITALS: BP 118/78; PULSE 50; RESP 18; TEMP 36.7; O2SAT 96
[2023-06-09] MEDS: Amitriptyline 25 MG Tablet 50 MG PO (20:24)
[2023-06-09] MEDS: Atorvastatin Calcium 10 MG Tablet PO (20:24)
[2023-06-10] MEDS: Phenobarbital 32.4 MG Tablet 64.8 MG PO ×4 (00:33→13:22)
[2023-06-10 02:00] VITALS: BP 137/86; PULSE 56; RESP 16; TEMP 36.6; O2SAT 98
[2023-06-10 07:43] VITALS: O2SAT 95
--- NOTE | 2023-06-10 08:01 | PCM.PN.HOSP ---
Reason for Visit Reason for Visit: Diagnoses Alcohol use, unspecified with withdrawal, uncomplicated (06/07/23) Alcohol use, unspecified with withdrawal, unspecified (06/07/23) Subjective Subjective No events overnight. Brought here because her mother found her drinking. Objective Data Objective Data Vital Signs: Vital Signs Temp Pulse Resp BP Pulse Ox O2 Del Method 36.6 C 56 L 16 137/86 H 95 Room Air 06/10/23 02:00 06/10/23 02:00 06/10/23 02:00 06/10/23 02:00 06/10/23 07:43 06/10/23 07:43 Oxygen Delivery Method Room Air Weight: 70 kg Body Mass Index (BMI) 27.3 Intake & Output: Intake and Output for Last 24 Hours 06/08/23 06/09/23 06/10/23 23:59 23:59 23:59 Intake Total 2750 / 2750 250 / 250 Balance 2750 / 2750 250 / 250 Lab / Micro Data 06/07/23 19:40 06/07/23 19:40 Physical Exam Const alert and no apparent distress HEENT head/scalp atraumatic Psych affect normal Assessment & Plan Assessment/Plan (1) Alcohol withdrawal: QUALIFIERS: Complication of substance-induced condition: uncomplicated Qualified Code(s): F10.930 - Alcohol use, unspecified with withdrawal, uncomplicated PLAN: Doing well. No medical necessity to stay. Follow up with [facility]. Pt expresses interest in receiving Vivitrol. That will need to be arranged as outpt. She endorses that she drinks to cope with the deaths of her sisters from ODs. She herself does not use narcotics. PLAN: Plan Chronic conditions: Depression with anxiety? Did continue patient home medication Hypertension- Blood pressure controlled, home medications continued with dose adjustment as needed Dyslipidemia-Patient is on statin therapy, continued at home dose Tobacco dependence GERD On PPI DVT prophylaxis ? Did encourage early ambulation
[2023-06-10] MEDS: DULoxetine Hcl 30 MG Capsule 60 MG PO (09:57)
[2023-06-10 09:58] VITALS: PULSE 78
[2023-06-10] MEDS: Metoprolol(XL)Succ 50 MG Tablet PO (09:58)
[2023-06-10] MEDS: Folic Acid 1 MG Tablet PO (09:58)
[2023-06-10] MEDS: Pantoprazole Sodium 40 MG Tablet PO (09:58)
[2023-06-10] MEDS: Lisinopril 5 MG Tablet PO (09:59)
[2023-06-10] MEDS: Multivitamins,Ther W-Minerals Tablet 1 TABLET PO (09:59)
[2023-06-10] MEDS: Thiamine Hydrochloride 100 MG Tablet PO (09:59)
[2023-06-10] MEDS: hydrOXYzine PAM 25 MG Capsule PO (10:04)
--- NOTE | 2023-06-10 11:12 | PCM.DC ---
Discharge Instructions Diet Discharge Diet: No restrictions Follow Up Care Test Results: Test results from this visit will be discussed in further detail at your follow-up appointment, if applicable. Discharge Plan Admission Admit Date/Time: 06/07/23 19:41 Primary Reason for Your Visit: alcohol withdrawal. Attending Provider: Kishan Vizcarra [facility] Providers: Jennifer Jeffries; Greg Crawford Instructions Additional Instructions / Restrictions: Follow up with [facility] intensive outpatient program. Discharge Orders/Prescriptions Prescriptions: New High Potency Multivit (w-iron) 9 mg iron-400 mcg Tablet 1 tab PO BREAKFAST Qty: 0 0RF Continued duloxetine 30 MG capsule 60 mg PO DAILY hydroxyzine HCl 25 mg tablet 25 mg PO BID Patient Comments: take 1 tablet by mouth twice a day ondansetron 4 mg tablet,disintegrating 4 mg PO Q8H PRN (Reason: nausea and vomiting) Qty: 14 0RF Hold Instructions: Pt has been DC'd amitriptyline 50 mg tablet 50 mg PO QHS Patient Comments: take 1 tablet by mouth nightly atorvastatin 10 mg tablet 10 mg PO QHS Patient Comments: take 1 tablet by mouth at bedtime clonidine HCl 0.1 mg tablet 0.1 mg PO BID PRN (Reason: anxiety) Patient Comments: take 1 tablet by mouth twice a day if needed for anxiety lisinopril 5 mg tablet 5 mg PO DAILY Patient Comments: take 1 tablet by mouth once daily omeprazole 40 MG capsule 40 mg PO DAILY Qty: 30 1RF Discontinued metoprolol succinate 50 mg tablet extended release 24 hr 50 mg PO DAILY Hold Instructions: Pt has been DC'd Patient Comments: take 1 tablet by mouth every morning gabapentin 100 mg capsule 1,200 mg PO DAILY Hold Instructions: Pt has been DC'd famotidine [Pepcid] 20 mg tablet 20 mg PO DAILY PRN (Reason: acid reflux) Qty: 14 0RF Hold Instructions: Pt has been DC'd [facility] - Within 2 Weeks Disposition Disposition (needs filled in before D/C Order can be placed): Home, Self Care
--- NOTE | 2023-06-10 11:18 | PCM.DC.SUM ---
Providers Date of Admission: 06/07/23 Primary Care Physician: Kelsie [facility] Reason For Visit: ETOH ABUSE/WITHDRAWL Diagnosis Discharge Diagnosis (1) Alcohol withdrawal: Status: Acute Code(s): F10.939 - Alcohol use, unspecified with withdrawal, unspecified Qualifiers: Complication of substance-induced condition: uncomplicated Qualified Code(s): F10.930 - Alcohol use, unspecified with withdrawal, uncomplicated Plan: Doing well. No medical necessity to stay. [facility]. Pt expresses interest in receiving Vivitrol. That will need to be arranged as outpt. She endorses that she drinks to cope with the deaths of her sisters from ODs. She herself does not use narcotics. Plan Chronic conditions: Depression with anxiety? Did continue patient home medication Hypertension- Blood pressure controlled, home medications continued with dose adjustment as needed Dyslipidemia-Patient is on statin therapy, continued at home dose Tobacco dependence GERD On PPI DVT prophylaxis ? Did encourage early ambulation Medications at Discharge Home Medications duloxetine 30 mg capsule,delayed release 60 mg PO DAILY 08/12/17 omeprazole 40 mg capsule,delayed release 40 mg PO DAILY #30 caps 12/24/17 hydroxyzine HCl 25 mg tablet 25 mg PO BID 01/01/22 ondansetron 4 mg disintegrating tablet 4 mg PO Q8H PRN nausea and vomiting #14 tabs 01/01/22 amitriptyline 50 mg tablet 50 mg PO QHS 06/07/23 atorvastatin 10 mg tablet 10 mg PO QHS 06/07/23 clonidine HCl 0.1 mg tablet 0.1 mg PO BID PRN anxiety 06/07/23 lisinopril 5 mg tablet 5 mg PO DAILY 06/07/23 multivitamin-iron 9 mg-folic acid 400 mcg-calcium and minerals tablet (High Potency Multivitamin (w-iron)) 1 tab PO BREAKFAST #0 tabs 06/10/23 Hospital Course Operations None Procedures None Summary of Care Provided Minutes Spent on Discharge: 32 Weight / BMI Weight Weight: 70 kg Body Mass Index (BMI) 27.3 ABG / Lab / Microbiology Data 06/07/23 19:40 06/07/23 19:40 D/C Instructions Discharge Diet: No restrictions Meaningful Use Info Meaningful Use Diagnoses (Choose all that apply): None applicable Discharge Plan Admission Admit Date/Time: 06/07/23 19:41 Primary Reason for Your Visit: alcohol withdrawal. Attending Provider: Kishan Vizcarra [facility] Providers: Jennifer Jeffries; Greg Crawford Instructions Additional Instructions / Restrictions: Follow up with [facility] outpatient program. Discharge Orders/Prescriptions Prescriptions: New High Potency Multivit (w-iron) 9 mg iron-400 mcg Tablet 1 tab PO BREAKFAST Qty: 0 0RF Continued duloxetine 30 MG capsule 60 mg PO DAILY hydroxyzine HCl 25 mg tablet 25 mg PO BID Patient Comments: take 1 tablet by mouth twice a day ondansetron 4 mg tablet,disintegrating 4 mg PO Q8H PRN (Reason: nausea and vomiting) Qty: 14 0RF Hold Instructions: Pt has been DC'd amitriptyline 50 mg tablet 50 mg PO QHS Patient Comments: take 1 tablet by mouth nightly atorvastatin 10 mg tablet 10 mg PO QHS Patient Comments: take 1 tablet by mouth at bedtime clonidine HCl 0.1 mg tablet 0.1 mg PO BID PRN (Reason: anxiety) Patient Comments: take 1 tablet by mouth twice a day if needed for anxiety lisinopril 5 mg tablet 5 mg PO DAILY Patient Comments: take 1 tablet by mouth once daily omeprazole 40 MG capsule 40 mg PO DAILY Qty: 30 1RF Discontinued metoprolol succinate 50 mg tablet extended release 24 hr 50 mg PO DAILY Hold Instructions: Pt has been DC'd Patient Comments: take 1 tablet by mouth every morning gabapentin 100 mg capsule 1,200 mg PO DAILY Hold Instructions: Pt has been DC'd famotidine [Pepcid] 20 mg tablet 20 mg PO DAILY PRN (Reason: acid reflux) Qty: 14 0RF Hold Instructions: Pt has been DC'd [facility] - Within 2 Weeks Disposition Disposition (needs filled in before D/C Order can be placed): Home, Self Care Charges/Coding Visit Charges Inpatient E&M: 49527 Disch Hosp >30min
--- NOTE | 2023-06-10 11:24 | ADDICTION ---
This appeals writer met with PT to conduct ASAM, MSE, AUDIT assessments and to plan for d/c. PT A+Ox4 and participated actively. All assessments completed by TW on weekend via paper document and placed in PT's chart. PT plans [facility] f[facility] for [facility]. PT did not indicate a need for transportation post d/c from [facility].
--- NOTE | 2023-06-10 11:30 | PHA.DC.MR.R ---
Pharmacy Research [facility] Reconciliation Pharmacy Service has performed discharge medication reconciliation for this patient. The patient's discharge medication list was reviewed for discrepancies and discrepancies were resolved. Medications at Discharge Home Medications duloxetine 30 mg capsule,delayed release 60 mg PO DAILY 08/12/17 omeprazole 40 mg capsule,delayed release 40 mg PO DAILY #30 caps 12/24/17 hydroxyzine HCl 25 mg tablet 25 mg PO BID 01/01/22 ondansetron 4 mg disintegrating tablet 4 mg PO Q8H PRN nausea and vomiting #14 tabs 01/01/22 amitriptyline 50 mg tablet 50 mg PO QHS 06/07/23 atorvastatin 10 mg tablet 10 mg PO QHS 06/07/23 clonidine HCl 0.1 mg tablet 0.1 mg PO BID PRN anxiety 06/07/23 lisinopril 5 mg tablet 5 mg PO DAILY 06/07/23 multivitamin-iron 9 mg-folic acid 400 mcg-calcium and minerals tablet (High Potency Multivitamin (w-iron)) 1 tab PO BREAKFAST #0 tabs 06/10/23
[2023-06-10 12:00] VITALS: BP 135/87; PULSE 71; RESP 18; TEMP 36.7; O2SAT 98
== END 2023-06-10 13:45 | disposition home or self-care (01) | DRG 772 ==
LOC: ED 20:02 → MS3 20:48
PROVIDERS: Physician Assistant; Admitting Provider Family Medicine; Emergency Provider Emergency Medicine
DX: F10.239 Alcohol dependence with withdrawal, unspecified (principal); E66.3 Overweight; E78.5 Hyperlipidemia, unspecified; K21.9 Gastro-esophageal reflux disease without esophagitis; I10 Essential (primary) hypertension; F41.9 Anxiety disorder, unspecified; F32.A Depression, unspecified; F17.210 Nicotine dependence, cigarettes, uncomplicated; Z68.27 Body mass index [BMI] 27.0-27.9, adult; Z79.899 Other long term (current) drug therapy
CPT/HCPCS: 80053; 80307; 81025; 82077; 83735; 84100; 85025; 86780; 99283; 99406; J7120; A4216

== ENCOUNTER 2023-08-09 06:04 | Day surgery (SDC) | payer OTHER, MEDICAID, SELFPAY ==
[2023-08-09] VITALS (9 sets, daily range): BP systolic 153–171; BP diastolic 78–102; PULSE 63–76; RESP 16–18; TEMP 36.3–36.6; O2SAT 99–100; BMI 29.1
[2023-08-09] MEDS: Ipratropium/Albuterol Sulfate 3 ML AMPUL.NEB INHALATION (07:07)
[2023-08-09] MEDS: Lactated Ringers 1,000 ML 15 ML IV (07:08)
--- NOTE | 2023-08-09 07:30 | COLBX_PTH ---
PATIENT: RAINER ECKERT LOC: EN U#:[id number] AGE/SX: 58/F ROOM: RE08/09/[address]: Dr. Scarlett Cross MD : 1965 BED: DIS: 08/09/2023 SPEC #: [id number] RECD: 08/09/23 13:05 STATUS: BLANK PAOLO #: [id number] LICO: 08/09/23 07:[address]: Scarlett Cross DEPT: SURGICAL PATHOLOGY RECD BY: Julian Luna ENTERED: 08/09/23 13:06 SP TYPE: COLON [facility] Tissues: A - Gastric mucous membrane B - Gastric mucous membrane C - Cecum, NOS D - Sigmoid colon biopsy Procedures: Special Stain Group II Surgery Specimen Level IV Alcian Blue/PAS (control) HEADER OPERATION: Colonoscopy with polypectomy, EGD with biopsy PRE-OP DIAGNOSIS: History of colonic polyps, epigastric pain, GERD TISSUE SUBMITTED: A - Antrum for H. pylori and path, B - Gastroesophageal junction biopsy, C - Cecum polyp, D - Sigmoid polyp MICROSCOPIC DIAGNOSIS A. Gastric antrum, biopsy: Chronic gastritis. See comment. B. Gastroesophageal junction, biopsy: Mild chronic inflammation. No evidence of goblet cell metaplasia. See comment. C. Cecal polyp, biopsy: Fragments of tubular adenoma. D. Sigmoid colon polyp, biopsy: Fragments of partially digested skeletal muscle and fecal debris. AM:azul 08/12/2023 COMMENT A. The results of immunohistochemistry for Helicobacter pylori will be reported separately ([id number]). B. Alcian blue/PAS stain with matched control supports the above diagnosis. MICROSCOPIC DESCRIPTION Slides are reviewed. GROSS DESCRIPTION A - Received in fixative is one container labeled with the patient's name and designated antrum. The specimen consists of one irregular fragment of light fortune soft tissue that measures 0.5 x 0.3 x 0.1 cm. The specimen is totally submitted in one cassette. B - Received in fixative is one container labeled with the patient's name and designated GE junction. The specimen consists of one irregular fragment of light fortune soft tissue that measures 0.5 x 0.5 x 0.1 cm. The specimen is totally submitted in one cassette. C - Received in fixative is one container labeled with the patient's name and designated cecum polyp. The specimen consists of two irregular fragments of light fortune soft tissue that in aggregate measure 0.5 x 0.5 x 0.5 cm. The specimen is totally submitted in one cassette. D - Received in fixative is one container labeled with the patient's name and designated sigmoid. The specimen consists of multiple irregular fragments of light fortune soft tissue that in aggregate measure 0.6 x 0.3 x 0.1 cm. The specimen is totally submitted in one cassette. / AM:azul 08/09/2023 TC:3 CPT: 66078 x4, 24625
--- NOTE | 2023-08-09 07:30 | IMM_PTH ---
PATIENT: RAINER ECKERT LOC: EN U#:[id number] AGE/SX: 58/F ROOM: RE08/09/[address]: Dr. Scarlett Cross MD : 1965 BED: DIS: 08/09/2023 SPEC #: [id number] RECD: 08/09/23 13:10 STATUS: BLANK RETristen #: [id number] LICO: 08/09/23 07:[address]: Scarlett Cross DEPT: IMMUNOHISTOCHEMISTRY RECD BY: Jesika Barclay ENTERED: 08/09/23 13:11 SP TYPE: IMMUNO OTHR DR: [facility] Tissues: A - Stomach, NOS Procedures: H Pylori (initial) PHYSICIAN & INSTITUTION [place] [id number] SPECIMEN INFORMATION: Tissue Source: A - Antrum Clinical Info: History of colonic polyps, epigastric pain, GERD Specimen Number: [id number] CPT code: 66755 METHODOLOGY: Deparaffinized sections of prefer/formalin-fixed tissue or PAP/DQ stained slides are incubated with monoclonal/polyclonal antibodies/oligonucleotide probes. Localization is made via biotin free immunoperoxidase method. Appropriate controls are performed and reacted as expected. Results on target cell population are indicated in the following table: RESULTS: ANTIBODY / CLONE RESULT Block A H Pylori (polyclonal) negative These tests were developed and their performance characteristics determined by [facility]. They may not have been cleared or approved by the U.S. Food and Drug Administration. The FDA has determined that such clearance or approval is not necessary. The above immunohistochemical/dualISH markers are ordered and reviewed by the Pathologist. INTERPRETATION: A. Antrum, biopsy: Negative for Helicobacter pylori organisms. AM:azul 08/12/2023
--- NOTE | 2023-08-09 07:48 | HP.PCM_ITS ---
HPI - General General Date of Service: 08/09/23 HPI Narrative RAINER ECKERT, is a 58 F who presents for EGD and colonoscopy due to epigastric pain/reflux. Patient has a history of tubular adenomas from previous colonoscopy in 2016 as well. Patient states her symptoms have resolved after b eing on the Carafate for about 2 weeks along with the pantoprazole. Patient is currently still on the PPI 07/03/23 office visit HPI HPI: 58-year-old female presents for an EGD and colonoscopy. Patient had previous EGD 08/2017 had 4 tubular adenomas that time also had an EGD at that time. Patient recently started detox program for alcohol about 3 weeks ago. Patient has bowel movements about every other day does have some issues with constipation she does take a herbal digestive pill no other laxatives. Patient denies any blood in her stool. Patient does think she drinks enough water throughout the day unsure about fiber. Patient was just started on pantoprazole last week still having some epigastric pain states that all day denies any nausea but states that due to her previous alcoholism she is irritated her stomach a lot in the past. Patient states that pop can make the epigastric pain worse. [facility] Medical History (Updated 08/09/23 @ 07:[address] Scarlett Cross MD) Alcohol abuse Alcohol abuse with physiological dependence Anxiety and depression Anxiety with depression GERD (gastroesophageal reflux disease) High cholesterol History of gastroesophageal reflux (GERD) Hyperlipidemia Hypertension Injury of back Marijuana use MRSA infection Overweight PTSD (post-traumatic stress disorder) Smoker Tobacco use Vocal cord disease Wears dentures Wears glasses Home Medications duloxetine 30 mg capsule,delayed release 60 mg PO DAILY 08/12/17 [History Last Taken Unknown] clonidine HCl 0.1 mg tablet 0.1 mg PO BID PRN anxiety 06/07/23 [History Last Taken Unknown] lisinopril 5 mg tablet 5 mg PO DAILY 06/07/23 [History Last Taken Unknown] multivitamin-iron 9 mg-folic acid 400 mcg-calcium and minerals tablet (High Potency Multivitamin (w-iron)) 1 tab PO BREAKFAST #0 tabs 06/10/23 [Rx Last Taken Unknown] amitriptyline 50 mg tablet 75 mg PO QHS 07/03/23 [History Last Taken Unknown] cyclobenzaprine 5 mg tablet 5 mg PO DAILY 07/03/23 [History Last Taken Unknown] pantoprazole 40 mg tablet,delayed release 40 mg PO BID 07/03/23 [History Last Taken Unknown] sucralfate 1 gram tablet 1 g PO QACHS #56 tabs 07/04/23 [Rx Last Taken Unknown] Allergy/AdvReac Type Severity Reaction Status Date / Time codeine AdvReac very hard Verified 08/08/23 08:46 to awaken Iodine and Iodide Containing AdvReac Hives Verified 08/08/23 08:46 Produc Penicillins AdvReac Rash Verified 08/08/23 08:46 Family History Mother CVA (cerebral vascular accident) Hypertension Heart disease Diabetes Father Alcoholism Sister Cancer pancreatic Surgical History H/O rectal polypectomy History of oral surgery S/P foot surgery, right Social History household members: none Smoking Status: Current every day smoker tobacco type: cigarettes alcohol intake: current alcohol intake frequency: 3 or more drinks per day details: Several crown drinks daily. substance use type: marijuana Past Medical/Surgical History Planned Operation Planned Operative Procedure/s: EGD, CSCOPE S.O.S: No Previous Hospitalizations/Surgeries HX Hospitalizations: Yes (ALCOHOL DETOX-06/2023) HX of Surgeries: vocal scraping, wlisdom teeth, toe surgery Any Problems With Anesthesia: No You/Your Family Experience Fever (Hyperthermia) With Anes: No Cholinesterase deficiency: No Cardiovascular Hx Chest Pain within Last 2 months: No Hx of Irregular Heartbeat and/or Afib: No Hx Heart Attack: No Hx Congestive Heart Failure: No Hx Rheumatic Fever: No Hx Hypertension: Yes (CONTROLLED WITH MED) Hx Internal Defibrillator: No Hx Pacemaker: No Hx Cardiac Catheterization: No Hx Cardiac Surgery/Stents/Etc.: No Hx Stress Test: No Hx Pain in Legs when Walking/Leg Cramps: No Respiratory Chronic Cough: No HX of Shortness of Breath: No Hoarseness: No Hx Chronic Obstructive Pulmonary Disease (COPD): No Hx Asthma: Yes Hx Emphysema: No Hx Sleep Apnea: No Hx Respiratory Tract Infection/Cold (presently): No Do You Snore Loudly (louder than talking or can be heard): No Do You Often Feel Tired/ Fatigued/ Sleepy Dring Daytime?: No Has Anyone Observed You Stop Breathing During Sleep?: No Result (for STOP score): Negative Hx Smoking: Yes Smoking Status: Current every day smoker Gastrointestinal Hx Gastroesophageal Reflux: Yes Controlled With Meds: Yes Hx Gastrointestinal Disorders: No Hx Gastrointestinal Bleed: No Hx Ulcer: No Hx Hiatal Hernia: No Difficulty Chewing/Swallowing: Yes (occ swallowing) Special diet followed at home: No Hx Unplanned Weight Loss of 20#: No HX Unplanned Weight Gain of 20#: No Neurological Hx Seizures: No HX Syncope/Blackout Spells/Unconsciousness: No Hx Transient Ischemic Attacks (TIA): No Hx Multiple Sclerosis: No Hx Parkinson's Disease: No Hx Head/Neck Injury: Yes Hx Headaches: No Hx Back Injury/Pain: Yes Recent Onset of Speech Difficulty: No Restless Legs: No Does patient have nerve stimulator: No Blood Disorder Hx Leukemia: No Bleeding Tendencies: No Hx Deep Vein Thrombosis: No Hx High Cholesterol: Yes (on meds) Blood Transmitted Disease: No Hx Hepatitis: No Hx Cirrhosis: No Hx Anemia: No Hx Blood Disorders: No Reproduction Is Patient Lactating: No Hx Hysterectomy: No Hx Tubal Ligation: No Are You Post Menopause: No Genitourinary Hx Renal Disease: No Musculoskeletal Hx Arthritis: Yes (back) Hx Rheumatoid Arthritis: No Hx Gout: No Recent Onset of an Orthopedic Problem: No Endocrine Hx Diabetes: No Thyroid Disease: No Hx Steroid Therapy: No Psycho/Social Hx Substance Use: Yes (marijuana several times weekly) Hx Alcohol Use: No Hx Anxiety: No Hx Depression: No Mental Illness: No Hx Dementia: No Miscellaneous Hx Cancer: No Recent Exposure to Contagious Disease: No Hx of C-Diff: No Any Loose Teeth: No Allergies codeine Adverse Reaction (Verified 08/08/23 08:46) very hard to awaken Iodine and Iodide Containing Produc Adverse Reaction (Verified 08/08/23 08:46) Hives Penicillins Adverse Reaction (Verified 08/08/23 08:46) Rash Discharge Is Pt Admitted From a Residential, or a Fdc: No After D/C, Where Do you Plan to Go: Return Home Vital Signs Vital Signs Vital Signs: 08/09/23 06:54 08/09/23 06:54 Temperature 97.9 F Temperature Source Temporal Pulse Rate 72 Respiratory Rate 18 Respiratory Pattern Normal Blood Pressure 171/78 H Blood Pressure Mean 109 Blood Pressure Source Monitor Blood Pressure Position Semi-Fowlers Blood Pressure Location Right Arm Pulse Ox 99 Oxygen Delivery Method Room Air Weight Weight: 159 lb 6.307 oz Body Mass Index (BMI) 29.1 Physical Exam Const alert, oriented x3 and no apparent distress HEENT normocephalic and head/scalp atraumatic Resp normal respiratory effort Cardio regular rate GI soft to palpation and non-tender; Negative for non-distended Palpation: Negative for guarding Extremity no clubbing, cyanosis or edema Neuro CN's II-XII intact bilaterally Psych mental status grossly normal Assessment & Plan Assessment/Plan (1) Hx of colonic polyps: (2) Epigastric pain: (3) GERD (gastroesophageal reflux disease): PLAN: Plan We will do an EGD and colonoscopy Surgery Risks - Colonoscopy I discussed with the patient the risks of the procedure: Yes Risks Include but are not Limited To: Risks include but are not limited to: Bleeding, perforation requiring further surgery, inability to complete colonoscopy requiring barium enema.
--- NOTE | 2023-08-09 08:43 | OP.EGD_ITS ---
Patient Name: Emmanuelle Smart Procedure Date: 08/09/2023 7:22 AM Date of : 1965 Age: 58 Procedure: Upper GI endoscopy Indications: Epigastric abdominal pain, Heartburn Providers: Scarlett Cross MD Referring MD: Scarlett Cross MD Medicines: Monitored Anesthesia Care Patient Profile: This is a 58 year old female. Complications: No immediate complications. Procedure: Pre-Anesthesia Assessment: - Prior to the procedure, a History and Physical was performed, and patient medications and allergies were reviewed. The patient's tolerance of previous anesthesia was also reviewed. The risks and benefits of the procedure and the sedation options and risks were discussed with the patient. All questions were answered, and informed consent was obtained. Prior Anticoagulants: The patient has taken no anticoagulant or antiplatelet agents. ASA Grade Assessment: Per anesthesia. After reviewing the risks and benefits, the patient was deemed in satisfactory condition to undergo the procedure. After obtaining informed consent, the endoscope was passed under direct vision. Throughout the procedure, the patient's blood pressure, pulse, and oxygen saturations were monitored continuously. The colonoscope was introduced through the mouth, and advanced to the second part of duodenum. The upper GI endoscopy was accomplished without difficulty. The patient tolerated the procedure well. Scope In: 8:01:52 AM Scope Out: 8:07:58 AM Total Procedure Duration Time 0 hours 6 minutes 6 seconds Findings: The Z-line was variable and was found 35 cm from the incisors. Biopsies were taken with a cold forceps for histology. Mildly erythematous mucosa without bleeding was found in the gastric antrum. Biopsies were taken with a cold forceps for histology. Biopsies were taken with a cold forceps for Helicobacter pylori cultures. The cardia and gastric fundus were normal on retroflexion. The examined duodenum was normal. Impression: - Z-line variable, 35 cm from the incisors. Biopsied. - Erythematous mucosa in the antrum. Biopsied. - Normal examined duodenum. Recommendation: - Await pathology results. - Discharge patient to home. - Resume previous diet. - Continue present medications. Procedure Code(s): --- Professional --- 21116, PT, Esophagogastroduodenoscopy, flexible, transoral; with biopsy, single or multiple Diagnosis Code(s): --- Professional --- K22.89, Other specified disease of esophagus K31.89, Other diseases of stomach and duodenum R10.13, Epigastric pain R12, Heartburn CPT copyright 2021 [employer]. All rights reserved. The codes documented in this report are preliminary and upon medical records coder review may be revised to meet current compliance requirements. MD Scarlett Nichole MD 08/09/2023 8:42:50 AM This report has been signed electronically. Number of Addenda: 0 Note Initiated On: 08/09/2023 7:22 AM
--- NOTE | 2023-08-09 08:43 | OP.CCLET_ITS ---
[facility] This procedure was performed on Wednesday, August 09, 2023. My impressions and recommendations are as follows: Impressions : - Z-line variable, 35 cm from the incisors. Biopsied. - Erythematous mucosa in the antrum. Biopsied. - Normal examined duodenum. Recommendations : - Await pathology results. - Discharge patient to home. - Resume previous diet. - Continue present medications. My findings are described in the full procedure note, which is enclosed. If I can be of further assistance, please feel free to contact me at Doctor phone number(s): , Work: . Sincerely, MD Scarlett Nichole MD 08/09/2023 8:42:50 AM This report has been signed electronically.
--- NOTE | 2023-08-09 08:47 | OP.COLON_ITS ---
Patient Name: Emmanuelle Smart Procedure Date: 08/09/2023 8:08 AM Date of : 1965 Age: 58 Procedure: Colonoscopy Indications: High risk colon cancer surveillance: Personal history of colonic polyps Providers: Scarlett Cross MD Referring MD: Scarlett Cross MD Medicines: Monitored Anesthesia Care Patient Profile: This is a 58 year old female. Last Colonoscopy: 2016. Complications: No immediate complications. Procedure: Pre-Anesthesia Assessment: - Prior to the procedure, a History and Physical was performed, and patient medications and allergies were reviewed. The patient's tolerance of previous anesthesia was also reviewed. The risks and benefits of the procedure and the sedation options and risks were discussed with the patient. All questions were answered, and informed consent was obtained. Prior Anticoagulants: The patient has taken no anticoagulant or antiplatelet agents. ASA Grade Assessment: Per anesthesia. After reviewing the risks and benefits, the patient was deemed in satisfactory condition to undergo the procedure. After I obtained informed consent, the scope was passed under direct vision. Throughout the procedure, the patient's blood pressure, pulse, and oxygen saturations were monitored continuously. The colonoscope was introduced through the anus and advanced to the cecum, identified by appendiceal orifice and ileocecal valve. The colonoscopy was performed without difficulty. The patient tolerated the procedure well. The quality of the bowel preparation was good. Scope In: 8:09:15 AM Scope Withdrawal Time 0 hours 19 minutes 30 seconds Scope Out: 8:33:31 AM Total Procedure Duration Time 0 hours 24 minutes 16 seconds Findings: Hemorrhoids were found on perianal exam. Non-bleeding internal hemorrhoids were found. The hemorrhoids were Grade I (internal hemorrhoids that do not prolapse). Three sessile and semi-pedunculated polyps were found in the sigmoid colon and cecum. The polyps were less than 5 mm in size. These polyps were removed with a hot snare. Resection and retrieval were complete. The exam was otherwise without abnormality. Impression: - Hemorrhoids found on perianal exam. - Non-bleeding internal hemorrhoids. - Three less than 5 mm polyps in the sigmoid colon and in the cecum, removed with a hot snare. Resected and retrieved. - The examination was otherwise normal. Recommendation: - Discharge patient to home. - Resume previous diet. - Continue present medications. - Await pathology results. - Repeat colonoscopy in 5 years for surveillance based on pathology results. Procedure Code(s): --- Professional --- 20916, PT, Colonoscopy, flexible; with removal of tumor(s), polyp(s), or other lesion(s) by snare technique Diagnosis Code(s): --- Professional --- Z86.010, Personal history of colonic polyps K64.0, First degree hemorrhoids D12.5, Benign neoplasm of sigmoid colon D12.0, Benign neoplasm of cecum CPT copyright 2021 [employer]. All rights reserved. The codes documented in this report are preliminary and upon installation engineer review may be revised to meet current compliance requirements. MD Scarlett Nichole MD 08/09/2023 8:47:05 AM This report has been signed electronically. Number of Addenda: 0 Note Initiated On: 08/09/2023 8:08 AM
--- NOTE | 2023-08-09 08:47 | OP.CCLET_ITS ---
[facility] This procedure was performed on Wednesday, August 09, 2023. My impressions and recommendations are as follows: Impressions : - Hemorrhoids found on perianal exam. - Non-bleeding internal hemorrhoids. - Three less than 5 mm polyps in the sigmoid colon and in the cecum, removed with a hot snare. Resected and retrieved. - The examination was otherwise normal. Recommendations : - Discharge patient to home. - Resume previous diet. - Continue present medications. - Await pathology results. - Repeat colonoscopy in 5 years for surveillance based on pathology results. My findings are described in the full procedure note, which is enclosed. If I can be of further assistance, please feel free to contact me at Doctor phone number(s): , Work: . Sincerely, MD Scarlett Nichole MD 08/09/2023 8:47:05 AM This report has been signed electronically.
== END 2023-08-09 09:23 | disposition home or self-care (01) ==
LOC: EN 06:05 → AC 06:06
PROVIDERS: Visit Provider Surgery
PROC: 0DJD8ZZ Inspection of Lower Intestinal Tract, Via Natural or Artificial Opening Endoscopic (ICD-10-PCS; CPT 45378; principal; 2023-08-09 07:25)
DX: Z12.11 Encounter for screening for malignant neoplasm of colon (principal); K21.9 Gastro-esophageal reflux disease without esophagitis; K63.5 Polyp of colon; Z86.010 Personal history of colon polyps; E78.00 Pure hypercholesterolemia, unspecified; F17.210 Nicotine dependence, cigarettes, uncomplicated; I10 Essential (primary) hypertension; K64.0 First degree hemorrhoids; Z79.899 Other long term (current) drug therapy; D12.0 Benign neoplasm of cecum; R10.13 Epigastric pain; R12 Heartburn; K22.89 Other specified disease of esophagus; K31.89 Other diseases of stomach and duodenum
CPT/HCPCS: 43239; 45385; 88305; 88313; 88342; 94640; J7120; J2405

== ENCOUNTER 2025-08-04 08:43 | Inpatient (IN) | payer MEDICAID, SELFPAY ==
[2025-08-04] VITALS (7 sets, daily range): BP systolic 144–172; BP diastolic 85–106; PULSE 71–92; RESP 15–18; TEMP 36.3–37; O2SAT 97–100; BMI 27.6; BMI 28.0
--- NOTE | 2025-08-04 09:24 | EX.ED.DYSGE1 ---
HPI History of Present Illness Chief Complaint: Substance Abuse Narrative Narrative: Chief complaint and HPI: 60-year-old female with past medical history of alcohol abuse, GERD, anxiety/depression, HTN, HLD presents for alcohol detox. Patient states her previous detox was approximately 2 years ago. She states that she drinks mostly liquor. She states she drank about 8 shots of whiskey yesterday evening. She does not believe herself to be currently withdrawing. She states she feels like she still mildly intoxicated. She denies any nausea or vomiting. Review of systems: See HPI Medications: As listed on the chart Allergies: As listed on the chart PFSH: Per chart Vital signs: As listed on the chart. Reviewed. Physical exam: Gen: A&O x3, NAD Head: Normocephalic, atraumatic Eyes: No sclera icterus, conjunctiva clear ENT: Moist mucous membranes CV: RRR, no murmurs Resp: Lungs CTA BL, no w/r/c Musc: Full ROM, no deformity Skin: Warm, dry Neuro: Alert, oriented, grossly intact, sensation intact Psych: Cooperative [facility] Medical History (Updated 08/04/25 @ 13:[address] Lc Cisneros MD) Wears glasses Wears dentures MRSA infection PTSD (post-traumatic stress disorder) Marijuana use High cholesterol Injury of back Smoker Vocal cord disease History of gastroesophageal reflux (GERD) Alcohol abuse with physiological dependence Anxiety with depression Alcohol abuse Overweight Anxiety and depression Tobacco use Hyperlipidemia GERD (gastroesophageal reflux disease) Hypertension Home Medications Medication Instructions Recorded Last Taken Type lisinopril 5 mg tablet 5 mg PO DAILY 06/07/23 08/03/25 History pantoprazole 40 mg tablet,delayed 40 mg PO BID 07/03/23 Unknown History release atorvastatin 10 mg tablet 10 mg PO QHS 08/04/25 08/03/25 History diphenhydramine HCl 25 mg capsule 25 mg PO QHS PRN allergy symptoms 08/04/25 Unknown History (Allergy Relief (diphenhydramine)) duloxetine 60 mg capsule,delayed 120 mg PO DAILY 08/04/25 08/03/25 History release hydroxyzine HCl 25 mg tablet 25 mg PO Q8H PRN PRN anxiety 08/04/25 Unknown History levocetirizine 5 mg tablet 5 mg PO DAILY 08/04/25 08/03/25 History losartan 25 mg tablet 25 mg PO DAILY 08/04/25 08/03/25 History Allergy/AdvReac Type Severity Reaction Status Date / Time codeine AdvReac very hard Verified 08/04/25 08:45 to awaken Iodine and Iodide Containing AdvReac Hives Verified 08/04/25 08:45 Produc Penicillins AdvReac Rash Verified 08/04/25 08:45 Family History Mother CVA (cerebral vascular accident) Hypertension Heart disease Diabetes Father Alcoholism Sister Cancer pancreatic Surgical History S/P foot surgery, right History of oral surgery H/O rectal polypectomy Social History household members: none Smoking Status: Current every day smoker tobacco type: cigarettes alcohol intake: current alcohol intake frequency: 3 or more drinks per day details: Several crown drinks daily. substance use type: marijuana EXAM Physical Exam Const Vital Signs: 08/04/25 08:44 08/04/25 10:00 08/04/25 10:43 Temperature 97.4 F L Temperature Source Oral Pulse Rate 92 86 87 Respiratory Rate 18 15 15 Blood Pressure 162/95 H 169/96 H 172/92 H Blood Pressure Mean 117 120 118 Blood Pressure Source Monitor Blood Pressure Position Sitting Blood Pressure Location Left Forearm Pulse Ox 97 97 98 Oxygen Delivery Method Room Air Room Air 08/04/25 11:32 Temperature 98.6 F Temperature Source Pulse Rate 84 Respiratory Rate 18 Blood Pressure 156/85 H Blood Pressure Mean 108 Blood Pressure Source Blood Pressure Position Blood Pressure Location Pulse Ox 98 Oxygen Delivery Method MDM MDM MDM Narrative Medical decision making narrative: 60-year-old female with past medical history of alcohol abuse, GERD, anxiety/depression, HTN, HLD presents for alcohol detox. Patient states her previous detox was approximately 2 years ago. She states that she drinks mostly liquor. She states she drank about 8 shots of whiskey yesterday evening. Currently denies any withdrawal symptoms. Plan will be to place patient in her detox center. NS bolus ordered. Laboratory workup ordered and patient placed on CIWA. CBC without leukocytosis. Patient has hemoconcentration of 16.4. CMP without SONDRA. Patient does have transaminitis with an AST of 96 and ALT of 104. Likely secondary to her chronic alcohol abuse. She is not endorsing any abdominal pain. Magnesium elevated at 2.6. Likely mild dehydration. Urine drug screen positive for marijuana. Alcohol level negative. Patient still requested to be admitted to alcohol detox. Patient admitted to the hospitalist. Impression: 1. Alcohol abuse requesting alcohol detox 2. Mild dehydration 3. Transaminitis Lab Data Labs: Laboratory Results - last 24 hr 08/04/25 08/04/25 09:40 11:07 WBC 6.2 RBC 4.74 Hgb 16.4 H Hct 47.3 H MCV 99.8 H MCH 34.6 H MCHC 34.7 RDW Std Deviation 49.7 H RDW Coeff of [place] 13.3 Plt Count 350 MPV 9.1 Immature Gran % (Auto) 0.200 Neut % (Auto) 61.0 Lymph % (Auto) 28.2 [place] % (Auto) 8.2 Eos % (Auto) 1.6 Baso % (Auto) 0.8 Absolute Neuts (auto) 3.8 Absolute Lymphs (auto) 1.76 Nucleated RBC % 0 Sodium 141 Potassium 3.3 Chloride 103 Carbon Dioxide 21.0 Anion Gap 17 H BUN 6 Creatinine 0.74 Estim Creat Clear Calc 71.51 Est GFR (MDRD) Non-Af 91 BUN/Creatinine Ratio 8.7 L Glucose 149 H Calcium 9.3 Magnesium 2.6 H Total Bilirubin 0.39 AST 96 H ALT 104 H Alkaline Phosphatase 130 H Total Protein 7.5 Albumin 4.4 Globulin 3.1 Albumin/Globulin Ratio 1.4 Urine Opiates Screen NEGATIVE U Buprenorphine Qual NEGATIVE Ur Oxycodone Screen NEGATIVE Urine Methadone Screen NEGATIVE Urine Fentanyl Screen NEGATIVE Ur Barbiturates Screen NEGATIVE Ur Phencyclidine Scrn NEGATIVE Ur Amphetamines Screen NEGATIVE U Benzodiazepines Scrn NEGATIVE Urine Cocaine Screen NEGATIVE U Cannabinoids Screen PRESUMPTIVE POSITIVE Ethyl Alcohol < 10.1 Discharge Plan Disposition Disposition: Acute Care Hospital [facility] Discharge Date/Time: 08/04/25 13:45
[2025-08-04 09:47] LABS: Hematocrit 47.3 % (37-47); Hemoglobin 16.4 g/dL (12.0-15.0); Immature Granulocytes Count 0.010 X10^3/uL (0.0-0.0); Mean Corp Hgb Conc 34.7 g/dL (32-36); Mean Corpuscular Volume 99.8 fL (81-99); Mean Platelet Vol. 9.1 fl (6.2-12.0); NRBC Flagged by Analyzer 0 % (0-5); Platelet Count 350 K/mm3 (150-450); RBC Distribution Width CV 13.3 % (11.6-14.6); RBC Distribution Width SD 49.7 fl (35.1-43.9); Red Blood Count 4.74 M/mm3 (4.2-5.4); White Blood Count 6.2 K/mm3 (4.4-11.0)
[2025-08-04] MEDS: 0.9% Normal Saline (1000mL) 1,000 ML 1000 ML IV (09:59)
[2025-08-04 10:10] LABS: AST(SGOT) 96 U/L (<=31); Alanine Aminotransfer ALT/SGPT 104 U/L (<=34); Albumin, Serum 4.4 g/dL (3.4-4.8); Alkaline Phosphatase 130 U/L (35-104); Anion Gap 17 (5-15); BUN 6 mg/dL (4-19); BUN/Creat Ratio 8.7 RATIO (10-20); Calcium,Total 9.3 mg/dL (7.6-11.0); Carbon Dioxide 21.0 mmol/L (21.0-32.0); Chloride 103 mmol/L (98-108); Estimated Creatinine Clearance 71.51 ml/min (50-250); Globulin 3.1 g/dL (2.2-4.2); Glucose 149 mg/dL (70-99); Magnesium 2.6 mg/dL (1.5-2.2); Potassium 3.3 mmol/L (3.3-5.1)
[2025-08-04 10:11] LABS: Alcohol, Blood (Medical)-Serum < 10.1 mg/dL (<=10.0)
--- OUTSIDE RECORDS SUMMARY | 2025-08-04 10:46 | XMS RPT_ITS | CCD ---
Author Organization [facility] Care Team Providers Care Morning Caregiver Name Role Phone INGRID CARSON Attending Unavailable Melida Arnold Unavailable Unavailable Lisa Johnson Primary Care Provider Lisa Johnson Primary Care Provider Lisa Johnson MD Primary Care Provider [phone] Lisa Johnson MD Primary Care Provider [phone] [facility] Primary Care Provider [facility] Pro vider Dr. Adam Mark Emergency Provider Dr. Jennifer Jeffries Admit Provider Dr. Jennifer Jeffries Other Provider Dr. Greg Crawford Attending Provider Unavailable Dr. Greg Crawford Other Provider Unavailable Dr. Kishan Vizcarra Attending Provider Dr. Kishan Vizcarra Other Provider [facility] Referring Provid er Dr. Scarlett Cross Attending Provider Dr. Scarlett Cross Other Provider NITESH MARK Attending Unavailable [facility] Primary Care Unavailable Jennifer Jeffries Admitting Unavailable Jennifer Jeffries Attending Unavailable Jennifer Jeffries Consulting [facility] Primary [facility] Unavailable Scarlett Cross Attending Unavailable Scarlett Cross Consulting [facility] Referring Unavailable [facility] [place] Primary Care Unavailable Robotham, Scarlett Attending Unavailable [facility] Referring Unavailable [facility] [place], [facility] Primary Care Unavailable White, Jennifer L Consulting Unavailable White, Jennifer L Admitting Unavailable [facility] [place], [facility] Primary Care Unavailable Kishan Vizcarra Attending Unavailable KitGreg adam Consulting Unavailable [facility]j [facility], Angelic Referring Unavailabl e Pj VS, Angelic Attending Unavailabl e Pj VS, Angelic Primary Care Unavailabl e Pj VS, Angelic Attending Unavailabl e [facility], Angelic [facility] Primary [facility] Unavailable Pj MOVE COORDINATOR, Angelic Attending Unavailable Kishan Vizcarra Attending Unavailable Greg Crawford Consulting Unavailable Zackery, Kishan Consulting Unavailable [place], Greg Attending Unavailable Robotham, Scarlett Attending Unavailable [facility] [place], [facility] Referring Unavailable [facility], [facility] Primary Care Unavailable Jax HE, Lisa Primary Care Provider Addison HE, Eliseo Fong Primary Care Provider Allergies Allergy Classification Reported Allergen(s) Allergy Type Date of Onset Reaction(s) Facility Iodine (and Iodine containting drugs) (11 sources) Iodine Drug Allergy 7 Rash [facility] Opioid Agonists (11 sources) Codeine Drug Allergy 7 Other (See Comments) [facility] Penicillins (antibiotic) (11 sources) Penicillins Drug Allergy 7 Rash [facility] (14 sources) Codeine; Translations: [CODEINE] Drug Allergy 7 Other (See Comments), Other [facility] (10 sources) Iodine; Translations: [IODINE] Drug Allergy 7 Rash, Hives [facility] (14 sources) Penicillins; Translations: [PENICILLINS] Propensity to adverse reactions to drug (disorder) 7 Rash [facility] (1 source) Codeine Drug Allergy 7 drowsy [facility] Work Phone: (1 source) Penicillin G Drug Allergy 7 rash [facility] Work Phone: (1 source) Povidone-Iodine Drug Allergy 7 rash [facility] Work Phone: (3 sources) Iodine Compounds Propensity to adverse reactions [facility] (1 source) Iodine and Iodide Containing Produc Drug allergy (disorder) 3 [facility] Medications Current Medications Medication Drug Class(es) Dates Sig (Normalized) Sig (Original) acetaminophen 325 mg / oxyCODONE hydrochloride 5 mg oral tablet (3 sources) Opioid Agonist Start: 04-29-2023 End: 05-04-2023 take 1 tablet by mouth every six hours as needed for pain oxyCODONE-acetami nophen (Percocet) 5-325 MG tablet Indications: Tooth decay Take 1 tablet by mouth every 6 hours as needed for severe pain (7-10) for up to 5 days. 15 tablet 0 04/29/2023 05/04/2023 Active Start: 12-18-2019 End: 12-21-2019 take 1 tablet by mouth every eight hours as needed for pain, then take 1 tablet by mouth as needed for pain oxyCODONE-acetaminophen (PERCOCET) 5-325 MG per tablet Indications: Closed fracture of one rib of right side, initial encounter Take 1 tablet by mouth every 8 hours as needed for Pain for up to 3 days. Intended supply: 3 days. Take lowest dose possible to manage pain 9 tablet 0 12/18/2019 12/21/2019 Active [id number] 200 actuat albuterol 0.09 mg/actuat metered dose inhaler (2 sources) beta2-Adrenergic Agonist Start: 09-05-2021 albuterol 108 (90 Base) MCG/ACT inhaler Inhale 2 puffs. 0 09/05/2021 Active amitriptyline hydrochloride 50 mg oral tablet (20 sources) Tricyclic Antidepressant Start: 07-03-2023 take 75 mg by mouth at bedtime Amitriptyline Active 75 MG PO AT BEDTIME July 03, 2023 2:17pm Start: 06-07-2023 End: 07-03-2023 take 50 mg by mouth at bedtime Amitriptyline Discontinued 50 MG PO AT BEDTIME June 07, 2023 12:00am July 03, 2023 2:18pm Start: 01-14-2023 amitriptyline (Elavil) 10 MG tablet take 2 and 1/2 tablets by mouth nightly Strength: 10 mg 75 tablet 0 01/14/2023 Active Start: 01-09-2023 End: 01-11-2023 amitriptyline (Elavil) 10 MG tablet take 2 and 1/2 tablets by mouth nightly Strength: 10 mg 35 tablet 0 01/09/2023 01/11/2023 Discontinued (Reorder) Start: 06-19-2021 take 2 tablets by mo [facility] once daily for pain amitriptyline (ELAVIL) 10 MG tablet Indications: Gastroesophageal reflux disease without esophagitis , Essential hypertension , Acute bilateral thoracic back pain , Screening mammogram, encounter for , Chronic pain of right ankle , Mixed hyperlipidemia take 2 & 1/2 tablets by mouth nightly 75 tablet 3 06/19/2021 Active Start: 12-19-2020 take 2.5 tablets by mouth once daily for pain amitriptyline (ELAVIL) 10 MG tablet Indications: Gastroesophageal reflux disease without esophagitis , Essential hypertension , Acute bilateral thoracic back pain , Screening mammogram, encounter for , Chronic pain of right ankle , Mixed hyperlipidemia Take 2.5 tablets by mouth nightly 30 tablet 3 12/19/2020 Active Start: 06-13-2020 take 2.5 tablets by mouth once daily amitriptyline (ELAVIL) 10 MG tablet Indications: Gastroesophageal reflux disease without esophagitis Take 2.5 tablets by mouth nightly 30 tablet 3 06/13/2020 Active Start: 01-11-2020 End: 06-13-2020 take 1 tablet by mouth once daily amitriptyline (ELAVIL) 10 MG tablet Indications: Gastroesophageal reflux disease without esophagitis take 1 tablet by mouth NIGHTLY 30 tablet 3 01/11/2020 06/13/2020 Discontinued (REORDER) Start: 09-21-2019 take 1 tablet by zaid once daily amitriptyline (ELAVIL) 10 MG tablet Indications: Gastroesophageal reflux disease without esophagitis take 1 tablet by mouth nightly 30 tablet 0 09/21/2019 Active clindamycin 150 mg oral capsule (2 sources) Lincosamide Antibacterial Start: 04-29-2023 End: 05-06-2023 take 3 capsules by mouth three times daily clindamycin (Cleocin) 150 MG capsule Take 3 capsules (450 mg) by mouth 3 times daily for 7 days. 63 capsule 0 04/29/2023 05/06/2023 Active clonazePAM (2 sources) Benzodiazepine clonazePAM (KLONOPIN PO) Take by mouth. 0 Active cloNIDine hydrochloride 0.1 mg oral tablet (2 sources) Central alpha-2 Adrenergic Agonist Start: 06-07-2023 take 0.1 mg by mouth twice daily Clonidine Hcl Active 0.1 MG PO TWICE A DAY June 07, 2023 12:00am cyclobenzaprine hydrochloride 5 mg oral tablet (1 source) Muscle Relaxant Start: 07-03-2023 take 5 mg by mouth once daily Cyclobenzaprine Active 5 MG PO DAILY July 03, 2023 12:00am diclofenac sodium 0.01 mg/mg topical gel (12 sources) Nonsteroidal Anti-inflammatory Drug Start: 03-20-2021 diclofenac sodium (VOLTAREN) 1 % GEL Indications: Primary osteoarthritis of both hips Apply topically 2 times daily 150 g 1 03/20/2021 Active DULoxetine 60 mg delayed release oral capsule (15 sources) Serotonin and Norepinephrine Reuptake Inhibitor Start: 01-09-2023 End: 02-13-2023 take 2 capsules by mouth once daily DULoxetine (Cymbalta) [address] capsule Take 2 capsules (120 mg) by mouth daily. 60 capsule 0 01/14/2023 02/13/2023 Active Start: 12-19-2020 take 1 capsule by [facility] twice daily for pain DULoxetine (CYMBALTA) 60 MG extended release capsule Indications: Gastroesophageal reflux disease without esophagitis , Essential hypertension , Acute bilateral thoracic back pain , Screening mammogram, encounter for , Chronic pain of right ankle , Mixed hyperlipidemia Take 1 capsule by mouth 2 times daily 60 capsule 3 12/19/2020 Active Start: 01-04-2020 take 1 capsule by mo ut once daily DULoxetine (CYMBALTA) 60 MG extended release capsule Indications: Gastroesophageal reflux disease without esophagitis Take 1 capsule by mouth daily 30 capsule 3 01/04/2020 Active Start: 03-16-2019 take 1 capsule by mo uth once daily DULoxetine (CYMBALTA) 60 MG extended release capsule Indications: Gastroesophageal reflux disease without esophagitis Take 1 capsule by mouth daily 30 capsule 3 03/16/2019 Active Start: 08-12-2017 take 60 mg by mouth once daily Duloxetine Active 60 MG PO DAILY August 12, 2017 12:00am etodolac 400 mg oral tablet (2 sources) Nonsteroidal Anti-inflammatory Drug Start: 01-04-2020 take 1 tablet by mouth twice daily as needed for pain etodolac (LODINE) 400 MG tablet Indications: Back pain, lumbosacral , Acute bilateral thoracic back pain Take 1 tablet by mouth 2 times daily as needed (pain) 60 tablet 0 01/04/2020 Active ibuprofen 200 mg oral tablet (5 sources) Nonsteroidal Anti-inflammatory Drug Start: 12-18-2019 take 2 tablets by mouth every six hours as needed for pain ibuprofen (ADVIL) 200 MG tablet Take 2 tablets by mouth every 6 hours as needed for Pain 120 tablet 0 12/18/2019 Active Start: 12-18-2019 ibuprofen (ADV IL;MOTRIN) tablet 600 mg lisinopril 5 mg oral tablet (4 sources) Angiotensin Converting Enzyme Inhibitor Start: 06-07-2023 take 5 mg by mouth once daily Lisinopril Active 5 MG PO DAILY June 07, 2023 12:00am LISINOPRIL PO Ta ke by mouth. 0 Active meloxicam 15 mg oral tablet (12 sources) Nonsteroidal Anti-inflammatory Drug Start: 03-10-2021 take 1 tablet by mouth once daily as needed for pain meloxicam (MOBIC) 15 MG tablet Indications: Chronic pain of both ankles , Hip pain Take 1 tablet by mouth daily as needed for Pain 30 tablet 1 03/10/2021 Active methylPREDNISolone 4 mg oral tablet (1 source) Corticosteroid Start: 03-20-2021 End: 03-26-2021 methylPREDNISolone (MEDROL DOSEPACK) 4 MG tablet Indications: Primary osteoarthritis of both hips Take by mouth. 1 kit 0 03/20/2021 03/26/2021 Active Pbsvqjwm-Svuv-Qv-Calc ium-Mins (High Potency Multivit (W-Iron)) 9 mg iron-400 mcg Tablet (1 source) Start: 06-10-2023 Stmnmdfu-Juvr-Ch-Kera cium-Mins (High Potency Multivit (W-Iron)) 9 mg iron-400 mcg Tablet Active 1 TABLET PO WITH BREAKFAST 0 June 10, 2023 12:00am omeprazole 20 mg delayed release oral capsule (19 sources) Proton Pump Inhibitor Start: 12-17-2022 take 2 capsules by mouth once daily omeprazole (PriLOSEC) [address] capsule take 2 capsules by mouth daily 180 capsule 1 12/17/2022 Active Start: 12-19-2020 take 2 capsules by m outh once daily for pain omeprazole (PRILOSEC) 20 MG delayed release capsule Indications: Gastroesophageal reflux disease without esophagitis , Essential hypertension , Acute bilateral thoracic back pain , Screening mammogram, encounter for , Chronic pain of right ankle , Mixed hyperlipidemia Take 2 capsules by mouth Daily 180 capsule 1 12/19/2020 Active Start: 03-29-2020 End: 06-27-2020 take 2 capsules by mouth once daily omeprazole (PRILOSEC) 20 MG delayed release capsule Take 2 capsules by mouth Daily 180 capsule 0 03/29/2020 06/27/2020 Active Start: 12-11-2018 take 1 capsule by mo ut once daily at bedtime omeprazole (PRILOSEC) 20 MG delayed release capsule take 1 capsule by mouth once daily at bedtime 0 12/11/2018 Active Start: 08-12-2017 End: 07-03-2023 take 40 mg by mouth once daily Omeprazole Discontinued 40 MG PO DAILY December 24, 2017 5:05pm July 03, 2023 2:20pm Start: 06-24-2017 End: 07-24-2017 take 1 tablet by mouth once daily OMEPRAZOLE 40 MG CPDR One tablet by mouth daily OMEPRAZOLE [id number] Scarlett Cross MD pantoprazole 40 mg delayed release oral tablet (1 source) Proton Pump Inhibitor Start: 07-03-2023 take 40 mg by mouth twice daily Pantoprazole Active 40 MG PO TWICE A DAY July 03, 2023 12:00am microencapsulated potassium chloride 10 meq extended release oral tablet (14 sources) Start: 03-13-2021 take 1 tablet by mouth once daily potassium chloride (KLOR-CON M) 10 MEQ extended release tablet Take 1 tablet by mouth daily for 7 days 7 tablet 0 03/13/2021 Active Start: 12-19-2020 take 1 tablet by zaid th once daily potassium chloride (KLOR-CON M) 20 MEQ extended release tablet Indications: Hypokalemia Take 1 tablet by mouth daily 14 tablet 0 12/19/2020 Active rosuvastatin calcium 10 mg oral tablet (2 sources) HMG-CoA Reductase Inhibitor Start: 12-23-2019 take 1 tablet by mouth once daily rosuvastatin (CRESTOR) 10 MG tablet Indications: Acute bilateral thoracic back pain Take 1 tablet by mouth nightly 30 tablet 3 12/23/2019 Active sodium chloride flush 0.9 % injection 3 mL (1 source) Start: 02-18-2020 sodium chlorid e flush 0.9 % injection 3 mL sucralfate 1000 mg oral tablet (1 source) Aluminum Complex Start: 07-04-2023 take 1 g by mouth once at bedtime Sucralfate Active 1 GM PO before meals and at bedtime 56 July 04, 2023 12:00am Take an hour before meals and at bedtime--do not take at bedtime night of procedure tiZANidine 4 mg oral tablet (1 source) Central alpha-2 Adrenergic Agonist Start: 12-22-2019 End: 01-21-2020 take 1 tablet by mouth twice daily as needed for pain tiZANidine (ZANAFLEX) 4 MG tablet Take 1 tablet by mouth 2 times daily as needed (muscle pain) 60 tablet 1 12/22/2019 01/21/2020 Active Completed/Discontinued Medications Medication Drug Class(es) Dates Sig (Normalized) Sig (Original) aluminum & magnesium hydroxide-simethico ne (MAALOX) 30 mL, lidocaine viscous hcl (XYLOCAINE) 5 mL (GI COCKTAIL) (1 source) Start: 02-18-2020 End: 02-18-2020 aluminum & magnesium hydroxide-simethic one (MAALOX) 30 mL, lidocaine viscous hcl (XYLOCAINE) 5 mL (GI COCKTAIL) atenolol 25 mg oral tablet (1 source) beta-Adrenergic Rock Start: 06-24-2017 ATENOLOL 25 MG TABS ATENOLOL [id number] Scarlett Cross MD atorvastatin 10 mg oral tablet (2 sources) HMG-CoA Reductase Inhibitor Start: 06-07-2023 End: 07-03-2023 take 10 mg by mouth at bedtime Atorvastatin Discontinued 10 MG PO AT BEDTIME June 07, 2023 12:00am July 03, 2023 2:18pm Calcium Carbonate / Vitamin D (1 source) Start: 06-24-2017 CALCIUM 500 + D 500-125 MG-UNIT TABS CALCIUM CARBONATE-VITAMIN D [id number] Scarlett Cross MD citalopram 10 mg oral tablet (1 source) Serotonin Reuptake Inhibitor Start: 06-24-2017 CELEXA 10 MG TABS CITALOPRAM HYDROBROMIDE [id number] Scarlett Cross MD famotidine 20 mg oral tablet (3 sources) Histamine-2 Receptor Antagonist Start: 01-01-2022 End: 06-10-2023 take 1 tablet by mouth once daily Famotidine (Pepcid) 20 mg tablet Discontinued 20 MG PO DAILY January 01, 2022 12:57pm June 10, 2023 11:13am gabapentin 100 mg oral capsule (17 sources) Anti-epileptic Agent Start: 05-05-2022 End: 04-29-2023 take 2 capsules by mouth twice daily gabapentin (Neurontin) 100 MG capsule Take 200 mg by mouth 2 times daily. 0 05/05/2022 04/29/2023 Discontinued Start: 01-01-2022 End: 06-10-2023 take 1200 mg by mouth once daily Gabapentin Discontinued 1200 MG PO DAILY January 01, 2022 1:00am June 10, 2023 11:13am Start: 12-28-2020 gabapentin (NE URONTIN) 100 MG capsule Takes 3 times daily - unsure of strength 0 12/28/2020 Active hydroCHLOROthiazide 25 mg oral tablet (19 sources) Thiazide Diuretic Start: 04-25-2022 End: 04-29-2023 take 1 tablet by mouth once daily hydroCHLOROthiazide (HYDRODiuril) 25 MG tablet Take 25 mg by mouth daily. 0 04/25/2022 04/29/2023 Discontinued Start: 12-19-2020 take 1 tablet by zaid th once daily for pain hydroCHLOROthiazide (HYDRODIURIL) 25 MG tablet Indications: Gastroesophageal reflux disease without esophagitis , Essential hypertension , Acute bilateral thoracic back pain , Screening mammogram, encounter for , Chronic pain of right ankle , Mixed hyperlipidemia Take 1 tablet by mouth daily 30 tablet 3 12/19/2020 Active Start: 01-04-2020 take 1 tablet by zaid th once daily hydroCHLOROthiazide (HYDRODIURIL) 25 MG tablet Take 1 tablet by mouth daily 30 tablet 3 01/04/2020 Active Start: 01-09-2019 hydrochlorothi azide (HYDRODIURIL) 25 MG tablet hydrOXYzine hydrochloride 25 mg oral tablet (20 sources) Antihistamine Start: 01-01-2022 End: 02-13-2023 take 1 tablet by mouth every eight hours as needed for anxiety hydrOXYzine HCl (Atarax) 25 MG tablet Take 1 tablet (25 mg) by mouth every 8 hours as needed for anxiety for up to 14 days. 42 tablet 0 01/09/2023 01/11/2023 Discontinued (Reorder) Start: 01-01-2022 End: 07-03-2023 take 25 mg by mouth twice daily Hydroxyzine Hcl Discontinued 25 MG PO TWICE A DAY January 01, 2022 1:00am July 03, 2023 2:18pm Start: 10-11-2020 take 1 tablet by zaid th three times daily for pain hydrOXYzine (ATARAX) 25 MG tablet Indications: Gastroesophageal reflux disease without esophagitis , Essential hypertension , Acute bilateral thoracic back pain , Screening mammogram, encounter for , Chronic pain of right ankle , Mixed hyperlipidemia take 1 tablet by mouth three times a day 0 10/11/2020 Active 24 hr metoprolol succinate 50 mg extended release oral tablet (20 sources) beta-Adrenergic Rock Start: 01-01-2022 End: 06-10-2023 take 1 tablet by mouth once daily in the morning metoprolol succinate XL (Toprol-XL) 50 MG 24 hr tablet Take 1 tablet (50 mg) by mouth every morning for 14 days. 14 tablet 0 01/09/2023 01/11/2023 Discontinued (Reorder) Start: 06-30-2021 take 1 tablet by zaid th once daily in the morning for pain metoprolol succinate (TOPROL XL) 50 MG extended release tablet Indications: Essential hypertension , Gastroesophageal reflux disease without esophagitis , Acute bilateral thoracic back pain , Screening mammogram, encounter for , Chronic pain of right ankle , Mixed hyperlipidemia take 1 tablet by mouth every morning 30 tablet 3 06/30/2021 Active Start: 12-19-2020 take 1 tablet by zaid th once daily for pain, then take 1 tablet by mouth once daily in the morning for pain metoprolol succinate (TOPROL XL) 50 MG extended release tablet Indications: Essential hypertension , Gastroesophageal reflux disease without esophagitis , Acute bilateral thoracic back pain , Screening mammogram, encounter for , Chronic pain of right ankle , Mixed hyperlipidemia Take 1 tablet by mouth daily Take 1 tab by mouth every morning 30 tablet 3 12/19/2020 Active Start: 01-04-2020 take 1 tablet by zaid th once daily, then take 1 tablet by mouth once daily in the morning metoprolol succinate (TOPROL XL) 50 MG extended release tablet Indications: Essential hypertension Take 1 tablet by mouth daily Take 1 tab by mouth every morning 30 tablet 3 01/04/2020 Active Start: 03-16-2019 take 1 tablet by zaid th once daily, then take 1 tablet by mouth once daily in the morning metoprolol succinate (TOPROL XL) 50 MG extended release tablet Indications: Essential hypertension Take 1 tablet by mouth daily Take 1 tab by mouth every morning 30 tablet 3 03/16/2019 Active ondansetron 4 mg disintegrating oral tablet (5 sources) Serotonin-3 Receptor Antagonist Start: 01-01-2022 End: 07-03-2023 take 4 mg by mouth every eight hours Ondansetron Discontinued 4 MG PO Q8H January 01, 2022 1:00am July 03, 2023 2:20pm Start: 02-18-2020 ondansetron (Z OFRAN-ODT) [address] 1-2 tablets under the tongue 3 times daily as needed for Nausea or Vomiting 20 tablet 0 02/18/2020 Active raNITIdine 150 mg oral tablet (1 source) Histamine-2 Receptor Antagonist Start: 06-24-2017 ZANTAC 150 MAXIMUM STRENGTH TABS RANITIDINE HCL TABS [id number] Scarlett Cross MD 50 ml sodium chloride 9 mg/ml injection (1 source) Start: 02-18-2020 End: 02-18-2020 0.9 % sodium chloride bolus traMADol hydrochloride 50 mg oral tablet (1 source) Opioid Agonist Start: 12-18-2019 End: 12-18-2019 traMADol (ULTRAM) tablet 50 mg Problems Active Problems Problem Classification Problem Date Documented Da te Episodic/Chronic Alcohol-related disorders (20 sources) Alcohol abuse; Translations: [Alcohol dependence, uncomplicated] Onset: 1 12-19-2020 Chronic Anxiety disorders (4 sources) Anxiety; Translations: [Mixed anxiety and depressive disorder] 06-07-2023 Chronic Disorders of lipid metabolism (1 source) Hyperlipidemia, unspecified; Translations: [Hyperlipidemia, unspecified] Onset: 4 Chronic Esophageal disorders (7 sources) Gastroesophageal reflux disease; Translations: [Gastroesophageal reflux disease without esophagitis] Onset: 7 06-24-2017 Chronic Essential hypertension (7 sources) Hypertensive disorder; Translations: [Essential hypertension] Onset: 7 06-24-2017 Chronic Gastritis and duodenitis (1 source) Acute gastritis; Translations: [Acute gastritis without hemorrhage, unspecified gastritis type] Episodic Mood disorders (7 sources) Depressive disorder; Translations: [Recurrent major depressive episodes, moderate ] Onset: 7 06-24-2017 Chronic Open wounds of extremities (1 source) Laceration of thumb; Translations: [Laceration of left thumb without foreign body without damage to nail, sequela] Episodic Other and unspecified benign neoplasm (1 source) History of polyp of colon; Translations: [Personal history of colonic polyps] 07-04-2023 Episodic Other congenital anomalies (17 sources) Os trigonum; 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] Onset: 1 12-23-2020 Chronic Other gastrointestinal disorders (2 sources) History of gastroesophageal reflux disease; Translations: [Personal history of other diseases of the digestive system] 06-07-2023 Episodic Other gastrointestinal disorders (1 source) Personal history of other diseases of the digestive system; Translations: [Personal history of other diseases of digestive system] 06-07-2023 Episodic Other lower respiratory disease (1 source) Chronic cough; Translations: [Chronic cough] Onset: 4 Episodic Other nervous system disorders (1 source) Cervical myelopathy; Translations: [Disease of spinal cord, unspecified] Chronic Other nervous system disorders (6 sources) Carpal tunnel syndrome of right wrist; Translations: [Carpal tunnel syndrome, right upper limb] Onset: 1 07-03-2021 Chronic Other nervous system disorders (1 source) Ataxia; Translations: [Ataxia, unspecified] Episodic Substance-related disorders (2 sources) Psychoactive substance use disorder; Translations: [Alcohol dependence, uncomplicated] Onset: 1 12-19-2020 Chronic Unclassified (1 source) Closed fracture of single right rib Unclassified (1 source) Alcohol use, unspecified with withdrawal, unspecified; Translations: [Alcohol use, unspecified with withdrawal, unspecified] Onset: 3 Unclassified (1 source) Alcohol use, unspecified with withdrawal, uncomplicated; Translations: [Alcohol use, unspecified with withdrawal, uncomplicated] Onset: 3 Past or Other Problems Problem Classification Problem Date Documented Da te Episodic/Chronic Abdominal pain (6 sources) Upper abdominal pain; Translations: [Epigastric pain] Onset: 10-11-2023 08-09-2023 Episodic Disorders of teeth and jaw (4 sources) Dental caries; Translations: [Dental caries, unspecified] Onset: 04-29-2023 04-29-2023 Episodic Other and unspecified benign neoplasm (5 sources) Personal history of colonic polyps; Translations: [Personal history of colonic polyps] Onset: 06-24-2017 06-24-2017 Episodic Other injuries and conditions due to external causes (17 sources) H/O: fracture; Translations: [Personal history of (healed) traumatic fracture] Onset: 12-23-2020 12-23-2020 Episodic Other non-traumatic joint disorders (17 sources) Bilateral instability of ankle joints; Translations: [Other instability, right ankle] Onset: 12-23-2020 12-23-2020 Episodic Other screening for suspected conditions (not mental disorders or infectious disease) (2 sources) Encounter for screening for malignant neoplasm of colon; Translations: [Abnormal results of thyroid function studies] Onset: 10-11-2023 Episodic Spondylosis; intervertebral disc disorders; other back problems (12 sources) Acute thoracic back pain; Translations: [Lumbar radiculopathy] Onset: 07-03-2021 07-03-2021 Episodic Results Test Name Value Interpretation Reference Range Facility 36on 08-12-2023 36 Patient has never established with Dr. Johnson [facility] 36 Recent Visits No visits were found meeting these conditions. Showing recent visits within past 365 days and meeting all other requirements Future Appointments No visits were found meeting these conditions. Showing future appointments within next 90 days and meeting all other requirements Requested Prescriptions Pending Prescriptions Disp Refills omeprazole (PriLOSEC) [address] capsule [Pharmacy Med Name: OMEPRAZOLE DR 20 MG CAPSULE] 180 capsule 1 Sig: take 2 capsules by mouth once daily Verified pharmacy: yes Verified day(s) supplied: yes Verified refill(s) needed (previous prescription showing no refills in chart): Yes [facility] Colonoscopy Reporton 023 Colonoscopy Report [facility] Medical Records Department [address] [place] [address] Colonoscopy Report MR#: [id number] Acct: [id number] Name: RAINER SMART Rep #: [id number] : 1965 58 From: Scarlett Cross MD PCP: [facility] Status:REG SD Patient Name: Rainer Smart Procedure Date: 08/09/2023 8:08 AM Date of : 1965 Age: 58 Procedure: Colonoscopy Indications: High risk colon cancer surveillance: Personal history of colonic polyps Providers: Scarlett Cross MD Referring MD: Scarlett Cross MD Medicines: Monitored Anesthesia Care Patient Profile: This is a 58 year old female. Last Colonoscopy: 2016. Complications: No immediate complications. Procedure: Pre-Anesthesia Assessment: - Prior to the procedure, a History and Physical was performed, and patient medications and allergies were reviewed. The patient's tolerance of previous anesthesia was also reviewed. The risks and benefits of the procedure and the sedation options and risks were discussed with the patient. All questions were answered, and informed consent was obtained. Prior Anticoagulants: The patient has taken no anticoagulant or antiplatelet agents. ASA Grade Assessment: Per anesthesia. After reviewing the risks and benefits, the patient was deemed in satisfactory condition to undergo the procedure. After I obtained informed consent, the scope was passed under direct vision. Throughout the procedure, the patient's blood pressure, pulse, and oxygen saturations were monitored continuously. The colonoscope was introduced through the anus and advanced to the cecum, identified by appendiceal orifice and ileocecal valve. The colonoscopy was performed without difficulty. The patient tolerated the procedure well. The quality of the bowel preparation was good. Scope In: 8:09:15 AM Scope Withdrawal Time 0 hours 19 minutes 30 seconds Scope Out: 8:33:31 AM Total Procedure Duration Time 0 hours 24 minutes 16 seconds Findings: Hemorrhoids were found on perianal exam. Non-bleeding internal hemorrhoids were found. The hemorrhoids were Grade I (internal hemorrhoids that do not prolapse). Three sessile and semi-pedunculated polyps were found in the sigmoid colon and cecum. The polyps were less than 5 mm in size. These polyps were removed with a hot snare. Resection and retrieval were complete. The exam was otherwise without abnormality. Impression: - Hemorrhoids found on perianal exam. - Non-bleeding internal hemorrhoids. - Three less than 5 mm polyps in the sigmoid colon and in the cecum, removed with a hot snare. Resected and retrieved. - The examination was otherwise normal. Recommendation: - Discharge patient to home. - Resume previous diet. - Continue present medications. - Await pathology results. - Repeat colonoscopy in 5 years for surveillance based on pathology results. Procedure Code(s): --- Professional --- 57245, PT, Colonoscopy, flexible; with removal of tumor(s), polyp(s), or other lesion(s) by snare technique Diagnosis Code(s): --- Professional --- Z86.010, Personal history of colonic polyps K64.0, First degree hemorrhoids D12.5, Benign neoplasm of sigmoid colon D12.0, Benign neoplasm of cecum CPT copyright 2021 [employer]. All rights reserved. The codes documented in this report are preliminary and upon sleep tech review may be revised to meet current compliance requirements. MD Scarlett Nichole MD 08/09/2023 8:47:05 AM This report has been signed electronically. Number of Addenda: 0 Note Initiated On: 08/09/2023 8:08 AM 08/09/23 0847 Date Scarlett Cross MD Cosigner Signature: Date (if indicated) CC: Dr. Scarlett Cross MD; [facility] Date Dictated: 08/09/23 0808 Date Transcribed: Software Verification Engineer: MESHA Signed Normal [facility] EGD Reporton 08-09-2023 EGD Report [facility] Medical Records Department [address] [place] [address] EGD Report MR#: [id number] Acct: [id number] Name: RAINER SMART Rep #: [id number] : 1965 58 From: Scarlett Cross MD PCP: [facility] Status:REG [facility] Patient Name: Rainer Smart Procedure Date: 08/09/2023 7:22 AM Date of : 1965 Age: 58 Procedure: Upper GI endoscopy Indications: Epigastric abdominal pain, Heartburn Providers: Scarlett Cross MD Referring MD: Scarlett Cross MD Medicines: Monitored Anesthesia Care Patient Profile: This is a 58 year old female. Complications: No immediate complications. Procedure: Pre-Anesthesia Assessment: - Prior to the procedure, a History and Physical was performed, and patient medications and allergies were reviewed. The patient's tolerance of previous anesthesia was also reviewed. The risks and benefits of the procedure and the sedation options and risks were discussed with the patient. All questions were answered, and informed consent was obtained. Prior Anticoagulants: The patient has taken no anticoagulant or antiplatelet agents. ASA Grade Assessment: Per anesthesia. After reviewing the risks and benefits, the patient was deemed in satisfactory condition to undergo the procedure. After obtaining informed consent, the endoscope was passed under direct vision. Throughout the procedure, the patient's blood pressure, pulse, and oxygen saturations were monitored continuously. The colonoscope was introduced through the mouth, and advanced to the second part of duodenum. The upper GI endoscopy was accomplished without difficulty. The patient tolerated the procedure well. Scope In: 8:01:52 AM Scope Out: 8:07:58 AM Total Procedure Duration Time 0 hours 6 minutes 6 seconds Findings: The Z-line was variable and was found 35 cm from the incisors. Biopsies were taken with a cold forceps for histology. Mildly erythematous mucosa without bleeding was found in the gastric antrum. Biopsies were taken with a cold forceps for histology. Biopsies were taken with a cold forceps for Helicobacter pylori cultures. The cardia and gastric fundus were normal on retroflexion. The examined duodenum was normal. Impression: - Z-line variable, 35 cm from the incisors. Biopsied. - Erythematous mucosa in the antrum. Biopsied. - Normal examined duodenum. Recommendation: - Await pathology results. - Discharge patient to home. - Resume previous diet. - Continue present medications. Procedure Code(s): --- Professional --- 03844, PT, Esophagogastroduodenosco py, flexible, transoral; with biopsy, single or multiple Diagnosis Code(s): --- Professional --- K22.89, Other specified disease of esophagus K31.89, Other diseases of stomach and duodenum R10.13, Epigastric pain R12, Heartburn CPT copyright 2021 [employer]. All rights reserved. The codes documented in this report are preliminary and upon sleep tech review may be revised to meet current compliance requirements. MD Scarlett Nichole MD 08/09/2023 8:42:50 AM This report has been signed electronically. Number of Addenda: 0 Note Initiated On: 08/09/2023 7:22 AM 08/09/23 0843 Date Scarlett Cross MD Cosigner Signature: Date (if indicated) CC: Dr. Scarlett Cross MD; [facility] Date Dictated: 08/09/23721 Date Transcribed: Software Verification Engineer: TR Signed Normal [facility] H Pylori (initial)on 023 H Pylori (initial) Patient Age/Sex Loca tion Account Attending Physician RAINER SMART 58/F EN [id number] Dr. Scarlett Cross MD Specimen: [id number] Received: 08/09/23 Status: SOULiyah Req Num: [id number] Spec Type: IMMUNO Subm Dr: Dr. Scarlett Cross MD PHYSICIAN INSTITUTION [place] [address] SPECIMEN INFORMATION: Tissue Source: A - Antrum Clinical Info: History of colonic polyps, epigastric pain, GERD Specimen Number: [id number] CPT code: 92655 METHODOLOGY: Deparaffinized sections of prefer/formalin-fixed tissue or PAP/DQ stained slides are incubated with monoclonal/polyclonal antibodies/oligonucleoti de probes. Localization is made via biotin free immunoperoxidase method. Appropriate controls are performed and reacted as expected. Results on target cell population are indicated in the following table: RESULTS: ANTIBODY / CLONE RESULT Block A H Pylori (polyclonal) negative These tests were developed and their performance characteristics determined by [facility]. They may not have been cleared or approved by the U.S. Food and Drug Administration. The FDA has determined that such clearance or approval is not necessary. The above immunohistochemical/dual EDIS markers are ordered and reviewed by the Pathologist. INTERPRETATION: A. Antrum, biopsy: Negative for Helicobacter pylori organisms. AM:azul 08/12/2023 Signed (signature on file) Dr. Lalit Woo DO 08/12/23 1405 Normal [facility] Comment on above: Performed By: #### P H.PYLORI #### [facility] [address] [place], [address] Special Stain Group IIon Special Stain Group II Patient Age/Sex Location Account Attending Physician RAINER SMART 58/F EN [id number] Dr. Scarlett Cross MD Specimen: [id number] Received: 08/09/23-1305 Status: [facility] Num: [id number] Spec Type: COLON BX Subm Dr: Dr. Scarlett Cross MD HEADER OPERATION: Colonoscopy with polypectomy, EGD with biopsy PRE-OP DIAGNOSIS: History of colonic polyps, epigastric pain, GERD TISSUE SUBMITTED: A - Antrum for H. pylori and path, B - Gastroesophageal junction biopsy, C - Cecum polyp, D - Sigmoid polyp MICROSCOPIC DIAGNOSIS A. Gastric antrum, biopsy: Chronic gastritis. See comment. B. Gastroesophageal junction, biopsy: Mild chronic inflammation. No evidence of goblet cell metaplasia. See comment. C. Cecal polyp, biopsy: Fragments of tubular adenoma. D. Sigmoid colon polyp, biopsy: Fragments of partially digested skeletal muscle and fecal debris. AM:azul 08/12/2023 COMMENT A. The results of immunohistochemistry for Helicobacter pylori will be reported separately ([id number]). B. Alcian blue/PAS stain with matched control supports the above diagnosis. MICROSCOPIC DESCRIPTION Slides are reviewed. GROSS DESCRIPTION A - Received in fixative is one container labeled with the patient's name and designated "antrum." The specimen consists of one irregular fragment of light fortune soft tissue that measures 0.5 x 0.3 x 0.1 cm. The specimen is totally submitted in one cassette. B - Received in fixative is one container labeled with the patient's name and designated "GE junction." The specimen consists of one irregular fragment of light fortune soft tissue that measures 0.5 x 0.5 x 0.1 cm. The specimen is totally submitted in one cassette. C - Received in fixative is one container labeled with the patient's name and designated "cecum polyp." The specimen consists of two irregular fragments of light fortune soft tissue that in aggregate measure 0.5 x 0.5 x 0.5 cm. The specimen is totally submitted in one cassette. D - Received in fixative is one container labeled with the patient's name and designated Patient Age/Sex Location Account Attending Physician RAINER SMART 58/ ALEK [id number] Dr. Scarlett Cross MD "sigmoid." The specimen consists of multiple irregular fragments of light fortune soft tissue that in aggregate measure 0.6 x 0.3 x 0.1 cm. The specimen is totally submitted in one cassette. / AM:azul 08/09/2023 TC:3 [facility]: [address] x4, [address] Patient Age/Sex Location Account Attending Physician RAINER SMART 58/ ALEK [id number] Dr. Scarlett Cross MD Signed (signature on file) Dr. Lalit Woo DO 08/12/23 1205 Normal [facility] Comment on above: Performed By: #### B , L100.0100 #### [facility] [address] [place] [address], [address] Surgery Visit Reporton 07-03 Surgery Visit Report [facility] [address] [place] [address] [address] [place] [address] OFFICE VISIT Date of Service: 07/03/23 MR#: [id number] Acct: [id number] Name: RAINER SMART Rep #: [id number] : 1965 Provider: Dr. Scarlett pop MD Age/Sex: 58/F Location: [facility] Status: Signed Intake Vital Signs 06/08/23 00:21 07/03/23 14:16 Height 5 ft 3 in 5 ft 2 in Weight: 161 lb BMI 29.4 BP 123/84 H Blood Pressure Location Rt brachial Position Sitting Respiration 16 Intake Visit Reasons: UPPER AND LOWER FOR GERD Chief Complaint: EGD/C-scope Mathematical Engineering Technician Required: No Is patient in pain?: Yes (epigastric area) Allergies codeine Adverse Reaction (Verified 07/03/23 14:17) very hard to awaken Iodine and Iodide Containing Produc Adverse Reaction (Verified 07/03/23 14:17) Hives Penicillins Adverse Reaction (Verified 07/03/23 14:17) Rash Medications duloxetine 30 mg capsule,delayed release 60 mg PO DAILY 08/12/17 [History Confirmed 07/03/23] clonidine HCl 0.1 mg tablet 0.1 mg PO BID PRN anxiety 06/07/23 [History Confirmed 07/03/23] lisinopril 5 mg tablet 5 mg PO DAILY 06/07/23 [History Confirmed 07/03/23] multivitamin-iron 9 mg-folic acid 400 mcg-calcium and minerals tablet (High Potency Multivitamin (w- iron)) 1 tab PO BREAKFAST #0 tabs 06/10/23 [Rx Confirmed 07/03/23] amitriptyline 50 mg tablet 75 mg PO QHS 07/03/23 [History Confirmed 07/03/23] cyclobenzaprine 5 mg tablet mg PO 07/03/23 [History Confirmed 07/03/23] pantoprazole 40 mg tablet,delayed release mg PO 07/03/23 [History Confirmed 07/03/23] sucralfate 1 gram tablet 1 g PO QACHS #56 tabs 07/04/23 [Rx Confirmed 07/04/23] PFSH Medical History (Updated 07/04/23 @ 12:[address] Scarlett Cross MD) Alcohol abuse Alcohol abuse with physiological dependence Anxiety and depression Anxiety with depression GERD (gastroesophageal reflux disease) History of gastroesophageal reflux (GERD) Hyperlipidemia Hypertension Overweight Tobacco use Vocal cord disease Surgical History H/O rectal polypectomy History of oral surgery S/P foot surgery, right Family History Mother CVA (cerebral vascular accident) Hypertension Heart disease Diabetes Father Alcoholism Sister Cancer pancreatic Social History household members: none Smoking Status: Current every day smoker tobacco type: cigarettes alcohol intake: current alcohol intake frequency: 3 or more drinks per day details: Several crown drinks daily. substance use type: marijuana HPI HPI HPI: 58-year-old female presents for an EGD and colonoscopy. Patient had previous EGD 08/2017 had 4 tubular adenomas that time also had an EGD at that time. Patient recently started detox program for alcohol about 3 weeks ago. Patient has bowel movements about every other day does have some issues with constipation she does take a herbal digestive pill no other laxatives. Patient denies any blood in her stool. Patient does think she drinks enough water throughout the day unsure about fiber. Patient was just started on pantoprazole last week still having some epigastric pain states that all day denies any nausea but states that due to her previous alcoholism she is irritated her stomach a lot in the past. Patient states that pop can make the epigastric pain worse. ROS General General: No weight change, appetite, fatigue, colon cancer, breast cancer or weakness HEENT HEENT: No difficulty swallowing, eye injury, eye surgery, swollen glands or hoarseness Endo Endocrine: No thyroid disease, diabetes mellitus, thyroid cancer, Hair loss, heat intolerance or cold intolerance Skin Skin: No rash or changing moles Breast Breast: No left breast lump, right breast lump, nipple discharge, breast pain, abnormal mammogram, abnormal US or breast enlargement Musc Musculoskeletal: Yes back problems and arthritis; No rheumatoid arthritis, gout or joint pain Cardio Cardiovascular: Yes high blood pressure; No murmur, pacemaker, heart disease, atrial fibrillation, heart attack, heart stent, palpitations, shortness of breat with exertion or chest pain Psych Psychiatric: Yes depression and anxiety; No hearing voices Resp Respiratory: No shortness of breath, No sleep apnea, No cough, No COPD, No asthma, No emphysema and No wheezing Gastro Gastrointestinal: Yes abdominal pain, No nausea or vomiting, No diarrhea, Yes constipation, No blood in stool, Yes acid reflux, Yes hemorrhoids, No ulcers, No gallbladder problem and No black,tarry stools [place] Hematologic: No blood thinners, No blood disorders, No bleeding, No anemia and No blood clots Neuro Neurologic: No system reviewed and no additio (more content not included)... Normal [facility] Discharge Instructionon 05-13 Discharge Instruction [facility] Medical Records Department [address] [place] [address] Instructions for Home/Discharge Instructions 06/10/23 1112 MR#: [id number] Acct: [id number] Name: RAINER SMART Rep #: [id number] : 1965 58 From: Kishan Vizcarra DO PCP: [facility] Status:ADM IN Discharge Instructions Diet Discharge Diet: No restrictions Follow Up Care Test Results: Test results from this visit will be discussed in further detail at your follow-up appointment, if applicable. Discharge Plan Admission Admit Date/Time: 06/07/23 19:41 Primary Reason for Your Visit: alcohol withdrawal. Attending Provider: Kishan Vizcarra [facility] Consult[facility] Providers: Jennifer Jeffries; Greg Crawfodr Instructions Additional Instructions / Restrictions: Follow up with [facility] intensive outpatient program. Discharge Orders/Prescriptions Prescriptions: New High Potency Multivit (w-iron) 9 mg iron-400 mcg Tablet 1 tab PO BREAKFAST Qty: 0 0RF Continued duloxetine 30 MG capsule 60 mg PO DAILY hydroxyzine HCl 25 mg tablet 25 mg PO BID Patient Comments: take 1 tablet by mouth twice a day ondansetron 4 mg tablet,disintegrating 4 mg PO Q8H PRN (Reason: nausea and vomiting) Qty: 14 0RF Hold Instructions: Pt has been DC'd amitriptyline 50 mg tablet 50 mg PO QHS Patient Comments: take 1 tablet by mouth nightly atorvastatin 10 mg tablet 10 mg PO QHS Patient Comments: take 1 tablet by mouth at bedtime clonidine HCl 0.1 mg tablet 0.1 mg PO BID PRN (Reason: anxiety) Patient Comments: take 1 tablet by mouth twice a day if needed for anxiety lisinopril 5 mg tablet 5 mg PO DAILY Patient Comments: take 1 tablet by mouth once daily omeprazole 40 MG capsule 40 mg PO DAILY Qty: 30 1RF Discontinued metoprolol succinate 50 mg tablet extended release 24 hr 50 mg PO DAILY Hold Instructions: Pt has been DC'd Patient Comments: take 1 tablet by mouth every morning gabapentin 100 mg capsule 1,200 mg PO DAILY Hold Instructions: Pt has been DC'd famotidine [Pepcid] 20 mg tablet 20 mg PO DAILY PRN (Reason: acid reflux) Qty: 14 0RF Hold Instructions: Pt has been DC'd [facility] - Within 2 Weeks Disposition Disposition (needs filled in before D/C Order can be placed): Home, Self Care 06/10/23 1118 Kishan Vizcarra DO CC: Dr. Jennifer Jeffries MD; Dr. Greg Crawford MD; [facility] Signed Normal [facility] CBC W/Diff, Automatedon 07-2 Absolute Neut Normal 2.0-7.7 [facility] Comment on above: Result Comment: CANC EL PER RN Performed By: #### B TS, L100.0100 #### [facility] [address] [place], [address] HCT Normal 37-47 [facility] Comment on above: Result Comment: CANC EL PER RN Performed By: #### B TS, L100.0100 #### [facility] [address] [place], [address] HGB Normal 12.0-15.0 [facility] Comment on above: Result Comment: CANC EL PER RN Performed By: #### Terry TS, L100.0100 #### [facility] [address] [place], [address] MCH Normal 27.0-32.0 [facility] Comment on above: Result Comment: CANC EL PER RN Performed By: #### Terry TS, L100.0100 #### [facility] [address] [place], [address] MCHC Normal 32-36 [facility] Comment on above: Result Comment: CANC EL PER RN Performed By: #### Terry TS, L100.0100 #### [facility] [address] [place], [address] MCV Normal 81-99 [facility] Comment on above: Result Comment: CANC EL PER RN Performed By: #### Terry TS, L100.0100 #### [facility] [address] [place], [address] NEUT% Normal 47-70 [facility] Comment on above: Result Comment: CANC EL PER RN Performed By: #### Terry TS, L100.0100 #### [facility] [address] [place], [address] PLT Normal 150-450 [facility] Comment on above: Result Comment: CANC EL PER RN Performed By: #### Terry MEADE, L100.0100 #### [facility] [address] [place], [address] RBC Normal 4.2-5.4 [facility] Comment on above: Result Comment: CANC EL PER RN Performed By: #### Terry MEADE, L100.0100 #### [facility] [address] [place], [address] RDW CV Normal 11.6-14.6 [facility] Comment on above: Result Comment: CANC EL PER RN Performed By: #### Terry MEADE, L100.0100 #### [facility] [address] [place], [address] RDW SD Normal 35.1-43.9 [facility] Comment on above: Result Comment: CANC EL PER RN Performed By: #### Terry MEADE, L100.0100 #### [facility] [address] [place], [address] WBC Normal 4.4-11.0 [facility] Comment on above: Result Comment: CANC EL PER RN Performed By: #### Terry MEADE, L100.0100 #### [facility] [address] [place], [address] L509.8000on 06-08-2023 Syphilis Abs Non-Reactive Normal [facility] Comment on above: Performed By: #### L 509.8000 #### [facility] [address] [place], [address] Type AND Screenon 06-08-2023 A1 CELL Not performed Normal [facility] Comment on above: Order Comment: S Result Comment: CANC EL PER RN Performed By: #### Terry MEADE, L100.0100 #### [facility] [address] [place], [address] Ab SCREEN GEL Not performed Normal [facility] Comment on above: Order Comment: S Result Comment: CANC EL PER RN Performed By: #### B TS, L100.0100 #### [facility] [address] [place], [address] ABO and Rh group Nom (Bld) Test Not Performed Normal [facility] Comment on above: Order Comment: S Result Comment: CANC EL PER RN Performed By: #### B TS, L100.0100 #### [facility] [address] [place], [address] ANTI A Not performed Normal [facility] Comment on above: Order Comment: S Result Comment: CANC EL PER RN Performed By: #### Terry TS, L100.0100 #### [facility] [address] [place], [address] ANTI B Not performed Normal [facility] Comment on above: Order Comment: S Result Comment: CANC EL PER RN Performed By: #### Terry TS, L100.0100 #### [facility] [address] [place], [address] ANTI D Not performed Normal [facility] Comment on above: Order Comment: S Result Comment: CANC EL PER RN Performed By: #### B TS, L100.0100 #### [facility] [address] [place], [address] B CELLS Not performed Normal [facility] Comment on above: Order Comment: S Result Comment: CANC EL PER RN Performed By: #### B TS, L100.0100 #### [facility] [address] [place], [address] BLD TYPE RECHEK Not performed Normal [facility] Comment on above: Order Comment: S Result Comment: CANC EL PER RN Performed By: #### B TS, L100.0100 #### [facility] [address] [place], [place], [address] Absolute lymphocyte countOrd ered By: Lashell Barreto on 06-07-2023 Lymphocytes Auto (Unsp spec) [#/Vol] 2.36 10*3/uL 0.83-4.51 [facility] Alcohol, Blood (Medical)-Ser umon 06-07-2023 SERUM ETOH 146.0 mg/dL Normal [facility] Comment on above: Result Comment: The serum:whole blood ethanol ratio is approximately 1.14 and varies slightly with hematocrit. Medical Alcohol reference interval and critical value in non-tolerant individuals; 50 - 100 Impairment 100 Intoxication 100 - 250 Severe Poisoning 250 - 400 Deep/possible fatal coma Performed By: #### L 100.0100, L501.9100, L505.5000, L500.4050, L501.5200 #### [facility] [address] [place], [place], [id number] Basophil percentageOrdered B y: Jennifer White on 06-07-2023 Basophil percentage 3.3 mg/dL 2.5-4.9 [facility] Basophil percentageOrdered B y: Lashell Barreto on 06-07-2023 Basophils/100 WBC (Bld) 0.3 % 0-1 [facility] Bilirubin [Mass/Vol] 0.20 mg/dL 0.20-1.00 [facility] Comment on above: For patients on eltr ombopag therapy, use of Dimension [place] TBIL is not recommended. Chloride [Moles/Vol] 106 mmol/L 98-107 [facility] Eosinophils/100 WBC (Bld) 0.7 % 0-5 [facility] Glucose [Mass/Vol] 88 mg/dL 74-106 [facility] Neutrophils (Bld) [#/Vol] 3.1 10*3/uL 2.0-7.7 [facility] Neutrophils/100 WBC (Bld) 52.7 % 47-70 [facility] Potassium [Moles/Vol] 3.5 mmol/L 3.5-5.1 [facility] Protein [Mass/Vol] 7.6 g/dL 6.4-8.2 [facility] Sodium [Moles/Vol] 142 mmol/L 136-145 [facility] WBC (Bld) [#/Vol] 6.0 10*3/uL 4.4-11.0 [facility] Blood erythrocytes count (nu mber/volume)Ordered By: Lashell Barreto on 06-07-2023 RBC (Bld) [#/Vol] 4.65 10*6/uL 4.2-5.4 [facility] Blood hemoglobin measurement (mass/volume)Ordered By: Lashell Barreto on 06-07-2023 Hemoglobin (Bld) [Mass/Vol] 14.9 g/dL 12.0-15.0 [facility] Blood lymphocytes/100 leukoc ytesOrdered By: Lashell Barreto on 06-07-2023 Lymphocytes/100 WBC (Bld) 39.5 % 19-41 [facility] Blood monocytes/100 leukocyt esOrdered By: Lashell Barreto on 06-07-2023 Monocytes/100 WBC (Bld) 6.5 % 0-10 [facility] Blood platelet mean volumeOr dered By: Lashell Barreto on 06-07-2023 Platelet mean volume (Bld) [Entitic vol] 8.6 fL 6.2-12.0 [facility] CBC W/Diff, Automatedon 05-12 Absolute Lymph 2.36 X10 3/uL Normal 0.83-4.51 [facility] Comment on above: Performed By: #### L 100.0100, L501.9100, L505.5000, L500.4050, L501.5200 #### [facility] [address] [place], [place], [id number] Absolute Neut 3.1 X10 3/uL Normal 2.0-7.7 [facility] Comment on above: Performed By: #### L 100.0100, L501.9100, L505.5000, L500.4050, L501.5200 #### [facility] [address] [place], [address] Basophils/100 WBC (Bld) 0.3 % Normal 0-1 [facility] Comment on above: Performed By: #### L 100.0100, L501.9100, L505.5000, L500.4050, L501.5200 #### [facility] [address] [place], [address] Eosinophils/100 WBC (Bld) 0.7 % Normal 0-5 [facility] Comment on above: Performed By: #### L 100.0100, L501.9100, L505.5000, L500.4050, L501.5200 #### [facility] [address] [place], [address] Erythrocyte distribution width (RBC) [Ratio] 12.8 % Normal 11.6-14.6 [facility] Comment on above: Performed By: #### L 100.0100, L501.9100, L505.5000, L500.4050, L501.5200 #### [facility] [address] [place], [address] Hematocrit (Bld) [Volume fraction] 44.7 % Normal 37-47 [facility] Comment on above: Performed By: #### L 100.0100, L501.9100, L505.5000, L500.4050, L501.5200 #### [facility] [address] [place], [address] Hemoglobin (Bld) [Mass/Vol] 14.9 g/dL Normal 12.0-15.0 [facility] Comment on above: Performed By: #### L 100.0100, L501.9100, L505.5000, L500.4050, L501.5200 #### [facility] [address] [place], [address] IG% 0.300 Normal 0.0-0.9 [facility] Comment on above: Result Comment: IG% - Immature Granulocytes (promyelocytes, myelocytes and metamyelocytes) > 1% indicates that a LEFT SHIFT is Present. Performed By: #### L 100.0100, L501.9100, L505.5000, L500.4050, L501.5200 #### [facility] [address] [place], [address] Lymphocytes/100 WBC (Bld) 39.5 % Normal 19-41 [facility] Comment on above: Performed By: #### L 100.0100, L501.9100, L505.5000, L500.4050, L501.5200 #### [facility] [address] [place], [address] MCH (RBC) [Entitic mass] 32.0 pg Normal 27.0-32.0 [facility] Comment on above: Performed By: #### L 100.0100, L501.9100, L505.5000, L500.4050, L501.5200 #### [facility] [address] [place], [address] MCHC (RBC) [Mass/Vol] 33.3 g/dL Normal 32-36 [facility] Comment on above: Performed By: #### L 100.0100, L501.9100, L505.5000, L500.4050, L501.5200 #### [facility] [address] [place], [address] MCV (RBC) [Entitic vol] 96.1 fL Normal 81-99 [facility] Comment on above: Performed By: #### L 100.0100, L501.9100, L505.5000, L500.4050, L501.5200 #### [facility] [address] [place], [address] Monocytes/100 WBC (Bld) 6.5 % Normal 0-10 [facility] Comment on above: Performed By: #### L 100.0100, L501.9100, L505.5000, L500.4050, L501.5200 #### [facility] [address] [place], [address] Neutrophils/100 WBC (Bld) 52.7 % Normal 47-70 [facility] Comment on above: Performed By: #### L 100.0100, L501.9100, L505.5000, L500.4050, L501.5200 #### [facility] [address] [place], [address] Nucleated RBC (Bld) [#/Vol] 0 10*3/uL Normal 0-5 [facility] Comment on above: Performed By: #### L 100.0100, L501.9100, L505.5000, L500.4050, L501.5200 #### [facility] [address] [place], [address] Platelet mean volume (Bld) [Entitic vol] 8.6 fL Normal 6.2-12.0 [facility] Comment on above: Performed By: #### L 100.0100, L501.9100, L505.5000, L500.4050, L501.5200 #### [facility] [address] [place], [address] Platelets (Bld) [#/Vol] 318 10*3/uL Normal 150-450 [facility] Comment on above: Performed By: #### L 100.0100, L501.9100, L505.5000, L500.4050, L501.5200 #### [facility] [address] [place], [address] RBC (Bld) [#/Vol] 4.65 10*6/uL Normal 4.2-5.4 [facility] Comment on above: Performed By: #### L 100.0100, L501.9100, L505.5000, L500.4050, L501.5200 #### [facility] [address] [place], [address] RDW SD 45.2 fl High 35.1-43.9 [facility] Comment on above: Performed By: #### L 100.0100, L501.9100, L505.5000, L500.4050, L501.5200 #### [facility] [address] [place], [address] WBC (Bld) [#/Vol] 6.0 10*3/uL Normal 4.4-11.0 [facility] Comment on above: Performed By: #### L 100.0100, L501.9100, L505.5000, L500.4050, L501.5200 #### [facility] [address] [place], [address] Comprehensive Metabolic Prof [facility] 06-07-2023 Albumin [Mass/Vol] 3.8 g/dL Normal 3.2-5.0 [facility] Comment on above: Order Comment: Comme nts: may add to ED labs Performed By: #### L 100.0100, L501.9100, L505.5000, L500.4050, L501.5200 #### [facility] [address] [place], [address] Albumin/Globulin [Mass ratio] 1.0 {ratio} Normal 0.9-2.4 [facility] Comment on above: Order Comment: Comme nts: may add to ED labs Performed By: #### L 100.0100, L501.9100, L505.5000, L500.4050, L501.5200 #### [facility] [address] [place], [address] ALK P 114 U/L Normal 45-117 [facility] Comment on above: Order Comment: Comme nts: may add to ED labs Performed By: #### L 100.0100, L501.9100, L505.5000, L500.4050, L501.5200 #### [facility] [address] [place], [address] ALT [Catalytic activity/Vol] 33 U/L Normal 13-56 [facility] Comment on above: Order Comment: Comme nts: may add to ED labs Performed By: #### L 100.0100, L501.9100, L505.5000, L500.4050, L501.5200 #### [facility] [address] [place], [address] AST [Catalytic activity/Vol] 23 U/L Normal 15-37 [facility] Comment on above: Order Comment: Comme nts: may add to ED labs Performed By: #### L 100.0100, L501.9100, L505.5000, L500.4050, L501.5200 #### [facility] [address] [place], [address] Bilirubin [Mass/Vol] 0.20 mg/dL Normal 0.20-1.00 [facility] Comment on above: Order Comment: Comme nts: may add to ED labs Result Comment: For patients on eltrombopag therapy, use of Dimension [place] TBIL is not recommended. Performed By: #### L 100.0100, L501.9100, L505.5000, L500.4050, L501.5200 #### [facility] [address] [place], [address] BUN/CRE 10.2 RATIO Normal 10-20 [facility] Comment on above: Order Comment: Comme nts: may add to ED labs Performed By: #### L 100.0100, L501.9100, L505.5000, L500.4050, L501.5200 #### [facility] [address] [place], [address] CA,Total 8.9 mg/dL Normal 8.5-10.1 [facility] Comment on above: Order Comment: Comme nts: may add to ED labs Performed By: #### L 100.0100, L501.9100, L505.5000, L500.4050, L501.5200 #### [facility] [address] [place], [address] Chloride [Moles/Vol] 106 mmol/L Normal 98-107 [facility] Comment on above: Order Comment: Comme nts: may add to ED labs Performed By: #### L 100.0100, L501.9100, L505.5000, L500.4050, L501.5200 #### [facility] [address] [place], [address] CO2 [Moles/Vol] 28.0 mmol/L Normal 21.0-32.0 [facility] Comment on above: Order Comment: Comme nts: may add to ED labs Performed By: #### L 100.0100, L501.9100, L505.5000, L500.4050, L501.5200 #### [facility] [address] [place], [address] Creatinine [Mass/Vol] 0.79 mg/dL Normal 0.55-1.02 [facility] Comment on above: Order Comment: Comme nts: may add to ED labs Result Comment: The validity of the calculated GFR GFRAA in patients over 70 years has not been determined. Clinical correlation is essential. Performed By: #### L 100.0100, L501.9100, L505.5000, L500.4050, L501.5200 #### [facility] [address] [place], [address] ECRCL 62.64 ml/min Normal [facility] Comment on above: Order Comment: Comme nts: may add to ED labs Performed By: #### L 100.0100, L501.9100, L505.5000, L500.4050, L501.5200 #### [facility] [address] [place], [address] EST GFR - AA 96 mL/min Normal >60 [facility] Comment on above: Order Comment: Comme nts: may add to ED labs Result Comment: Afri can Colombian GFR Calc Performed By: #### L 100.0100, L501.9100, L505.5000, L500.4050, L501.5200 #### [facility] [address] [place], [address] GAP 8 Normal 5-15 [facility] Comment on above: Order Comment: Comme nts: may add to ED labs Performed By: #### L 100.0100, L501.9100, L505.5000, L500.4050, L501.5200 #### [facility] [address] [place], [address] GFR/1.73 sq M.predicted among non-blacks MDRD (S/P/Bld) [Vol rate/Area] 79 mL/min/{1.73_m2} Normal >60 [facility] Comment on above: Order Comment: Comme nts: may add to ED labs Result Comment: Non- GFR Calc Performed By: #### L 100.0100, L501.9100, L505.5000, L500.4050, L501.5200 #### [facility] [address] [place], [address] Globulin (S) [Mass/Vol] 3.8 g/dL Normal 2.2-4.2 [facility] Comment on above: Order Comment: Comme nts: may add to ED labs Performed By: #### L 100.0100, L501.9100, L505.5000, L500.4050, L501.5200 #### [facility] [address] [place], [address] Glucose [Mass/Vol] 88 mg/dL Normal 74-106 [facility] Comment on above: Order Comment: Comme nts: may add to ED labs Performed By: #### L 100.0100, L501.9100, L505.5000, L500.4050, L501.5200 #### [facility] [address] [place], [address] Potassium [Moles/Vol] 3.5 mmol/L Normal 3.5-5.1 [facility] Comment on above: Order Comment: Comme nts: may add to ED labs Performed By: #### L 100.0100, L501.9100, L505.5000, L500.4050, L501.5200 #### [facility] [address] [place], [address] Sodium [Moles/Vol] 142 mmol/L Normal 136-145 [facility] Comment on above: Order Comment: Comme nts: may add to ED labs Performed By: #### L 100.0100, L501.9100, L505.5000, L500.4050, L501.5200 #### [facility] [address] [place], [address] T PROT 7.6 g/dL Normal 6.4-8.2 [facility] Comment on above: Order Comment: Comme nts: may add to ED labs Performed By: #### L 100.0100, L501.9100, L505.5000, L500.4050, L501.5200 #### [facility] [address] [place], [address] Urea nitrogen [Mass/Vol] 8 mg/dL Normal 7-18 [facility] Comment on above: Order Comment: Comme nts: may add to ED labs Performed By: #### L 100.0100, L501.9100, L505.5000, L500.4050, L501.5200 #### [facility] [address] [place], [address] Determination of erythrocyte mean corpuscular volume (MCV)Ordered By: Lashell Barreto on 06-07-2023 MCV (RBC) [Entitic vol] 96.1 fL 81-99 [facility] Emergency Department Summary on 06-07-2023 Emergency Department Summary [facility] Medical Records Department [address] [place] [address] Emergency Department Summary 06/07/23 MR#: [id number] Acct: [id number] Name: RAINER SMART Rep #: [id number] : 1965 58 From: Adam Mark MD [facility] Status:REG ER Location: ED HPI History of Present Illness Chief Complaint: Substance Abuse Detail of Chief Complaint: [facility] for alcohol detox Informant: patient and family Onset/Context/Timing Onset: - (Years) Context: Sudden Onset Timing: Continuous Quality: Drink of choice is whiskey. Less than a pint a day Location: Home Current Severity: Mild Maximum Severity: Severe Worsened by: Abstinence Relieved by: Drinking alcohol Associated Symptoms Associated Symptoms: Presently none Narrative Narrative: Patient is a 58-year-old woman who is never been in detox. She has history of peptic ulcer disease, hypertension, neuropathy who presents for inpatient therapy of detox. She drinks slightly less than a pint of whiskey a day. She has been drinking for many years. She denies hematuria, bleeding of her gums, bruising easily black or maroon stool. Her last drink was approximately 0930. Prior similar symptoms: No Recent Illness/Hospitalization: No PFSH PFSH Medical History Alcohol abuse Anxiety and depression GERD (gastroesophageal reflux disease) Hyperlipidemia Hypertension Overweight Tobacco use Home Medications duloxetine 30 mg capsule,delayed release 60 mg PO DAILY 08/12/17 [History Last Taken Unknown] omeprazole 40 mg capsule,delayed release 40 mg PO DAILY #30 caps 12/24/17 [Rx Last Taken Unknown] famotidine 20 mg tablet (Pepcid) 20 mg PO DAILY PRN acid reflux #14 tabs 01/01/22 [Rx Last Taken Unknown] gabapentin 100 mg capsule 1,200 mg PO DAILY 01/01/22 [History Last Taken Unknown] hydroxyzine HCl 25 mg tablet 25 mg PO BID 01/01/22 [History Last Taken Unknown] metoprolol succinate 50 mg tablet,extended release 24 hr 50 mg PO DAILY 01/01/22 [History Last Taken Unknown] ondansetron 4 mg disintegrating tablet 4 mg PO Q8H PRN nausea and vomiting #14 tabs 01/01/22 [Rx Last Taken Unknown] amitriptyline 50 mg tablet 50 mg PO QHS 06/07/23 [History Last Taken Unknown] atorvastatin 10 mg tablet 10 mg PO QHS 06/07/23 [History Last Taken Unknown] clonidine HCl 0.1 mg tablet 0.1 mg PO BID PRN anxiety 06/07/23 [History Last Taken Unknown] lisinopril 5 mg tablet 5 mg PO DAILY 06/07/23 [History Last Taken Unknown] Allergy/AdvReac Type Severity Reaction Status Date / Time codeine AdvReac very hard Verified 01/01/22 09:09 to awaken Iodine and Iodide Containing AdvReac Hives Verified 01/01/22 09:09 Produc Penicillins AdvReac Rash Verified 01/01/22 09:09 Social History (Updated 06/07/23 @ 19:[address] Adam Mark MD) Smoking Status: Current every day smoker tobacco type: cigarettes alcohol intake: current alcohol intake frequency: other substance use type: does not use ROS ROS ED Constitutional Constitutional ED: Reports sweats; Denies chills, fever(s), subjective or weight loss Eyes Eyes: Denies blurry vision, change in vision or diplopia ENT ENT ED: Denies ear pain, rhinorrhea or sore throat Cardiovascular Cardiovascular: Reports palpitations and racing heartbeat; Denies chest pain Respiratory/Chest Respiratory/Chest: Denies cough, dyspnea or dyspnea on exertion Gastrointestinal Gastrointestinal: Denies abdominal pain, nausea or vomiting Genitourinary Genitourinary ED: Denies dysuria, hematuria or urinary frequency Musculoskeletal Musculoskeletal: Denies arthralgias, back pain, myalgias or neck pain Neurologic Neurologic: Denies headache(s), paresthesias or weakness Psychiatric Psychiatric: Denies anxiety or depression Hematologic/Lymphatic Hematologic/Lymphatic: Reports systems reviewed and no addt'l complaints, except as documented EXAM Physical Exam Const Vital Signs: 06/07/23 18:21 Temperature 98.1 F Temperature Source Temporal Pulse Rate 89 Respiratory Rate 17 Blood Pressure 152/89 H Blood Pressure Mean 110 Pulse Ox 99 Oxygen Delivery Method Room Air Positive well nourished and well developed General Appearance ED: well developed; Negative for pallor HEENT Reports moist mucous membranes Eyes PERRL and EOMs intact bilaterally General Eye ED: Negative for pale conjunctiva or scleral icterus Neck no lymphadenopathy, supple and no JVD Chest Wall inspection of chest normal and palpation of chest normal Resp normal respiratory effort and clear to auscultation bilaterally Cardio regular rate, regular rhythm, S1 normal heart sound, S2 normal heart sound and no murmurs GI normal to inspection, nondistended, normoactive bowel sounds, non-tender, non-distended and no masses; Negative for hepatosplenomegaly Back/Spine (more content not included)... Normal [facility] H AND P Exam - [facility] 06-07-2023 H&P Exam - Hospitalist [facility] Medical Records Department [address] [place] [address] H P Exam - [facility] Hospitalist 06/07/231938 MR#: [id number] Acct: [id number] Name: RAINER SMART Rep #: [id number] : 1965 58 From: Jennifer Jeffries MD PCP: [facility] Status:ADM IN Location: IN3 OM123-0 HPI - General General Date of Admission: 06/07/23 Date of Service: 06/07/23 Chief Complaint: EtOH abuse/withdrawal. HPI Narrative The patient is a 58 y/o F w/ PMHx: Overweight, HLD, HTN, GERD, Anxiety and Depression, Tobacco use, EtOH abuse (3 bottles, smaller of crown daily), Cannabis use who presents to the [facility] ED on 06/07/23 with history of onset acute EtOH withdrawal, onset starting late afternoon/early evening on day of presentation following last EtOH intake AM of day of presentation with onset of nausea, tremors, agitation, tactile disturbances. Patient interested in attaining sober status. Work-up in the ED included T98.1, heart rate 89, BP 152/89, respiratory rate 17, 99% on room air, see see with WC 6.0, and 114.9, platelet 318 without marked shift, CMP unremarkable, UDS with positive cannabis, urine test negative, ethyl alcohol level 146. [facility] Medical History (Updated 06/07/23 @ 21:[address] Jennifer Jeffries MD) Alcohol abuse Anxiety and depression GERD (gastroesophageal reflux disease) Hyperlipidemia Hypertension Overweight Tobacco use Vocal cord disease Home Medications duloxetine 30 mg capsule,delayed release 60 mg PO DAILY 08/12/17 [History Last Taken Unknown] omeprazole 40 mg capsule,delayed release 40 mg PO DAILY #30 caps 12/24/17 [Rx Last Taken Unknown] famotidine 20 mg tablet (Pepcid) 20 mg PO DAILY PRN acid reflux #14 tabs 01/01/22 [Rx Last Taken Unknown] gabapentin 100 mg capsule 1,200 mg PO DAILY 01/01/22 [History Last Taken Unknown] hydroxyzine HCl 25 mg tablet 25 mg PO BID 01/01/22 [History Last Taken Unknown] metoprolol succinate 50 mg tablet,extended release 24 hr 50 mg PO DAILY 01/01/22 [History Last Taken Unknown] ondansetron 4 mg disintegrating tablet 4 mg PO Q8H PRN nausea and vomiting #14 tabs 01/01/22 [Rx Last Taken Unknown] amitriptyline 50 mg tablet 50 mg PO QHS 06/07/23 [History Last Taken Unknown] atorvastatin 10 mg tablet 10 mg PO QHS 06/07/23 [History Last Taken Unknown] clonidine HCl 0.1 mg tablet 0.1 mg PO BID PRN anxiety 06/07/23 [History Last Taken Unknown] lisinopril 5 mg tablet 5 mg PO DAILY 06/07/23 [History Last Taken Unknown] Allergy/AdvReac Type Severity Reaction Status Date / Time codeine AdvReac very hard Verified 01/01/22 09:09 to awaken Iodine and Iodide Containing AdvReac Hives Verified 01/01/22 09:09 Produc Penicillins AdvReac Rash Verified 01/01/22 09:09 Family History (Updated 06/07/23 @ 21:[address] Jennifer Jeffries MD) Mother CVA (cerebral vascular accident) Hypertension Heart disease Diabetes Father Alcoholism Surgical History (Updated 06/07/23 @ 21:[address] Jennifer Jeffries MD) H/O rectal polypectomy History of oral surgery S/P foot surgery, right Social History (Updated 06/07/23 @ 21:[address] Jennifer Jeffries MD) household members: none Smoking Status: Current every day smoker tobacco type: cigarettes Smoking packs per day: 0.75 Smoking cigarettes per day: 15.0 alcohol intake: current alcohol intake frequency: 3 or more drinks per day details: Several crown drinks daily. substance use type: marijuana ROS ROS Narrative Admission Review of Systems: CONSTITUTIONAL: No weight loss, fever, chills, + weakness or fatigue. HEENT: + Strabismus. Eyes: No visual loss, blurred vision, double vision or yellow sclerae. Ears, Nose, Throat: No hearing loss, sneezing, congestion, runny nose or sore throat. SKIN: No rash or itching, lesions, wounds. CARDIOVASCULAR: No chest pain, chest pressure or chest discomfort, palpitations, edema, orthopnea, syncopal events. RESPIRATORY: No shortness of breath, cough or sputum, wheezing, hemoptysis. GASTROINTESTINAL: + anorexia, nausea. No vomiting or diarrhea, abdominal pain, melena, BRBPR. GENITOURINARY: No dysuria, frequency, urgency or retention. NEUROLOGICAL: + Mild tremors, mild tactile disturbances. No headache, dizziness, syncope, paralysis, ataxia, numbness or tingling in the extremities, focal weakness, change in bowel or bladder control, seizure. MUSCULOSKELETAL: No muscle, back pain, joint pain or stiffness. HEMATOLOGIC: No anemia, bleeding or bruising. LYMPHATICS: No enlarged nodes. No history of splenectomy. PSYCHIATRIC: + history of depression or anxiety. ENDOCRINOLOGIC: No reports of sweating, cold or heat intolerance. No polyuria or polydipsia. ALLERGIES: + history of hives. Vital Signs Vital Signs Vital Signs: 06/07/23 18:21 Temperature 98.1 F Temperature Source Temporal Pulse Rate 89 Respiratory R (more content not included)... Normal [facility] Hematocrit Auto (Bld) [Volum e fraction]Ordered By: Lashell Barreto on 06-07-2023 Hematocrit (Bld) [Volume fraction] 44.7 % 37-47 [facility] - Chemistry and C hemistry - challengeOrdered By: Lashell Barreto on 06-07-2023 HCG ( test) Ql (U) Negative [facility] Comment on above: Very dilute urine sp ecimens, as indicated by a low specificgravity, may not contain ocean import representative levels of hCG. If is still suspected, a first morning urinespecimen should be collected 48 hours later and tested. ALP [Catalytic activity/Vol] 114 U/L 45-117 [facility] ALT [Catalytic activity/Vol] 33 U/L 13-56 [facility] CO2 [Moles/Vol] 28.0 mmol/L 21.0-32.0 [facility] Globulin (S) [Mass/Vol] 3.8 g/dL 2.2-4.2 [facility] Urea nitrogen/Creatinine [Mass ratio] 10.2 mg/mg 10-20 [facility] - Chemistry and C hemistry - challengeOrdered By: Jennifer Jeffries on 06-07-2023 Magnesium [Mass/Vol] 2.6 mg/dL 1.6-2.6 [facility] - Drug toxicology Ordered By: Lashell Barreto on 06-07-2023 Amphetamines Ql (U) Negative <1000 ng/mL [facility] Benzodiazepines Ql (U) Negative < 200 ng/mL [facility] Cannabinoids Screen Ql (U) Positive < 50 ng/mL [facility] Cocaine Ql (U) Negative < 300 ng/mL [facility] Opiates Ql (U) Negative < 300 ng/mL [facility] - Hematology and Cell countsOrdered By: Lashell Barreto on 06-07-2023 Erythrocyte distribution width (RBC) [Entitic vol] 45.2 fL 35.1-43.9 [facility] Erythrocyte distribution width (RBC) [Ratio] 12.8 % 11.6-14.6 [facility] Immature granulocytes/100 WBC (Bld) 0.300 % 0.0-0.9 [facility] Comment on above: IG% - Immature Granu locytes (promyelocytes, myelocytes and metamyelocytes) > 1% indicates that a LEFT SHIFT is Present. MCH (RBC) [Entitic mass] 32.0 pg 27.0-32.0 [facility] Nucleated RBC/100 WBC (Bld) [Ratio] 0 % 0-5 [facility] MCHC Auto (RBC) [Mass/Vol]Or dered By: Lashell Barreto on 06-07-2023 MCHC (RBC) [Mass/Vol] 33.3 g/dL 32-36 [facility] Magnesiumon 06-07-2023 Magnesium [Mass/Vol] 2.6 mg/dL Normal 1.6-2.6 [facility] Comment on above: Order Comment: Comme nts: may add to ED labs Performed By: #### L 100.0100, L501.9100, L505.5000, L500.4050, L501.5200 #### [facility] [address] [place], [address] No Panel InformationOrdered By: Lashell Barreto on 06-07-2023 MDMA (Ecstasy) Screen Negative < 500 ng/mL [facility] Urine Barbiturates Screen Negative < 200 ng/mL [facility] Urine Drug Screen Comment [facility] Comment on above: CONFIRMATORY TESTING FOR ALL POSITIVE URINE DRUG SCREENRESULTS WILL ONLY BE SENT OUT UPON PHYSICIAN ORDER. VISTA Urine Drug Screen methods provide only preliminaryanalytical test results. A more specific alternate chemicalmethod must be used in order to obtain a confirmedanalytical result. Gas chromatography/mass spectrometery(GC/MS) is the preferred confirmatory method. Clinicalconsideration and professional judgement should be appliedto any drug of abuse test result, particularly whenpreliminary positive results are used. URINE TCA TESTING MUST BE ORDERED SEPARATELY. USE TESTMNEMONIC: [facility] Urine Methadone Screen Negative < 300 ng/mL [facility] Estimated Creatinine Clearance Calc 62.64 ml/min [facility] Estimated GFR (MDRD) Amer 96 mL/min >60 [facility] Comment on above: GFR Calc Estimated GFR (MDRD) Non-Af Amer 79 mL/min >60 [facility] Comment on above: Non- GFR Calc Ethyl Alcohol Level 146.0 mg/dL [facility] Comment on above: The serum:whole bloo d ethanol ratio is approximately 1.14and varies slightly with hematocrit. Medical Alcohol reference interval and critical value innon-tolerant individuals; 50 - 100 Impairment 100 Intoxication 100 - 250 Severe Poisoning 250 - 400 Deep/possible fatal coma Phosphoruson 06-07-2023 Phosphate [Mass/Vol] 3.3 mg/dL Normal 2.5-4.9 [facility] Comment on above: Order Comment: S Performed By: #### B TS, L100.0100 #### [facility] [address] [place] [place], [address] Platelets bldOrdered By: Davi Barreto on 06-07-2023 Platelets (Bld) [#/Vol] 318 10*3/uL 150-450 [facility] ,Urineon 06-07-2023 Beta HCG ( test) Ql (U) Negative Normal [facility] Comment on above: Result Comment: Very dilute urine specimens, as indicated by a low specific gravity, may not contain ocean import representative levels of hCG. If is still suspected, a first morning urine specimen should be collected 48 hours later and tested. Performed By: #### L 400.7600 #### [facility] [address] [place], [address] Serum Treponema species anti body detectionOrdered By: Adam Mark on 06-07-2023 Treponema sp Ab Ql (S) Non-Reactive [facility] Serum or plasma albumin amado urement (mass/volume)Ordered By: Lashell Barreto on 06-07-2023 Albumin [Mass/Vol] 3.8 g/dL 3.2-5.0 [facility] Serum or plasma albumin/glob ulin mass ratioOrdered By: Lashell Barreto on 06-07-2023 Albumin/Globulin [Mass ratio] 1.0 {ratio} 0.9-2.4 [facility] Serum or plasma calcium amado urement (mass/volume)Ordered By: Lashell Barreto on 06-07-2023 Calcium [Mass/Vol] 8.9 mg/dL 8.5-10.1 [facility] Serum or plasma creatinine m easurement (mass/volume)Ordered By: Lashell Barreto on 06-07-2023 Creatinine [Mass/Vol] 0.79 mg/dL 0.55-1.02 [facility] Comment on above: The validity of the calculated GFR & GFRAA in patients over 70 years has not been determined. Clinical correlation is essential. Serum or plasma urea nitroge n measurement (mass/volume)Ordered By: Lashell Barreto on 06-07-2023 Urea nitrogen [Mass/Vol] 8 mg/dL 7-18 [facility] Thin prep Papanicolaou smear with manual screeningOrdered By: Lashell Barreto on 07-28-2023 Thin prep Papanicolaou smear with manual screening 23 U/L 15-37 [facility] Thin prep Papanicolaou smear with manual screening 8 5-15 [facility] Urine Drug Screen (VISTA)on 06-07-2023 AMPHETAMINES Negative Normal <1000 ng/mL [facility] Comment on above: Performed By: #### L 100.0100, L501.9100, L505.5000, L500.4050, L501.5200 #### [facility] [address] [place] [address] BARBITIURATES Negative Normal < 200 ng/mL [facility] Comment on above: Performed By: #### L 100.0100, L501.9100, L505.5000, L500.4050, L501.5200 #### [facility] [address] [place] [address] BENZODIAZIPINE Negative Normal < 200 ng/mL [facility] Comment on above: Performed By: #### L 100.0100, L501.9100, L505.5000, L500.4050, L501.5200 #### [facility] [address] [place] [address] COCAINE Negative Normal < 300 ng/mL [facility] Comment on above: Performed By: #### L 100.0100, L501.9100, L505.5000, L500.4050, L501.5200 #### [facility] [address] [place] [address] ECSTACY Negative Normal < 500 ng/mL [facility] Comment on above: Performed By: #### L 100.0100, L501.9100, L505.5000, L500.4050, L501.5200 #### [facility] [address] [facility] [address] METHADONE Negative Normal < 300 ng/mL [facility] Comment on above: Performed By: #### L 100.0100, L501.9100, L505.5000, L500.4050, L501.5200 #### [facility] [address] [place], [address] OPIATES Negative Normal < 300 ng/mL [facility] Comment on above: Performed By: #### L 100.0100, L501.9100, L505.5000, L500.4050, L501.5200 #### [facility] [address] [place], [address] PCP Negative Normal < 25 ng/mL [facility] Comment on above: Performed By: #### L 100.0100, L501.9100, L505.5000, L500.4050, L501.5200 #### [facility] [address] [place], [address] THC Positive Abnormal < 50 ng/mL [facility] Comment on above: Performed By: #### L 100.0100, L501.9100, L505.5000, L500.4050, L501.5200 #### [facility] [address] [place], [address] VISTA UDS PH 5 Normal [facility] Comment on above: Performed By: #### L 100.0100, L501.9100, L505.5000, L500.4050, L501.5200 #### [facility] [address] [place], [address] Urine phencyclidine (PCP) de tectionOrdered By: Lashlel Barreto on 06-07-2023 Phencyclidine Ql (U) Negative < 25 ng/mL [facility] ED Nursing Noteon 04-29-2023 ED Nursing Note Reviewed discharge instructions and patient verbalized understanding. No further questions. Patient ambulated out of ED with strong steady gait. Respirations even and non labored. No acute distress. A&O x4. Dot Lowery RN 04/29/231934 Normal [facility] ED Nursing Note Patient ambulated to ED5 for right lower jaw pain since yesterday. She notes a couple of bad teeth. She also endorses swelling and pain from the chin to the ear. She broke a tooth a couple of months ago and has issues with the tooth next to it. She took Tylenol x2 at 1730. Patient appears to be in no acute distress. Skin is warm, dry, and pink. A&O x3. Respirations even and non labored. Bed in locked and low position. Call light within reach. Patient has no further needs. [facility] ED Provider Noteon 3 ED Provider Note EMERGENCY DEPARTMENT ENCOUNTER Pt Name: Rainer Smart Birthdate 1965 Date of evaluation: 04/29/2023 ED Provider: Nitesh Mark MD CHIEF COMPLAINT No chief complaint on file. HISTORY OF PRESENT ILLNESS (Location/Symptom, Timing/Onset, Context/Setting, Quality, Duration, Modifying Factors, Severity) Note limiting factors. I wore appropriate PPE for the entirety of this encounter. HPI Rainer Smart is a 58 y.o. adult who presents to the emergency department with tooth pain Patient has a history of cigarette smoking, drinks occasionally, hypertension, chronic low back pain with sciatica, alcohol use, family history of bladder and prostate cancer. 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 Over the past several days she has noted worsening pain in the right lower jaw, specifically around tooth #29 which is broken off at the gumline. Small amount of gingivitis is forming there. All of the upper/maxillary teeth are false/dentures. Tooth #28 has multiple cavities which have been filled. Teeth #30, 31, 32 are gone completely, . She denies any change in the tone of her voice, no stridor no trismus no drooling, no change in her ability to eat or drink, no fevers no chills no purulent or bloody drainage. No symptoms inferior to the clavicles. No chest pain palpitation shortness of breath abdominal pain. No neck stiffness or induration, no limitation of range of motion of the neck. Afebrile, minimally hypertensive, normal heart rate. Patient is going to follow-up with her dentist in [place] tomorrow, but today is a federal holiday, so she was unable to get an appointment today and came to the emergency department hoping to be prescribed antibiotics to prevent any infection from forming. She has been taking Tylenol for pain. Nursing Notes were reviewed. Limitations to history: None Outside historians: None REVIEW OF SYSTEMS Review of Systems Pertinent positives and negatives as per HPI PAST MEDICAL HISTORY Past Medical History: Diagnosis Date Anxiety Depression Hyperlipidemia Hypertension Lower back injury SURGICAL HISTORY Past Surgical History: Procedure Laterality Date LARYNGOSCOPY CURRENT MEDICATIONS Previous Medications ALBUTEROL 108 (90 BASE) MCG/ACT INHALER Inhale 2 puffs. AMITRIPTYLINE (ELAVIL) 10 MG TABLET take 2 and 1/2 tablets by mouth nightly Strength: 10 mg DULOXETINE (CYMBALTA) [address] CAPSULE Take 2 capsules (120 mg) by mouth daily. HYDROXYZINE HCL (ATARAX) 25 MG TABLET Take 1 tablet (25 mg) by mouth every 8 hours as needed for anxiety. HYDROXYZINE HCL (ATARAX) 25 MG TABLET Take 25 mg by mouth. METOPROLOL SUCCINATE XL (TOPROL-XL) 50 MG 24 HR TABLET Take 1 tablet (50 mg) by mouth every morning. OMEPRAZOLE (PRILOSEC) [address] CAPSULE take 2 capsules by mouth daily ALLERGIES Codeine, Penicillins, and Iodine FAMILY HISTORY Family History Problem Relation Name Age of Onset Cancer Mother's Sister bladder cancer Cancer Sister pancreatic Heart attack Maternal Grandmother Stroke Maternal Grandmother SOCIAL HISTORY Social History Socioeconomic History Marital status: Single Tobacco Use Smoking status: Every Day Packs/day: 0.10 Types: Cigarettes Smokeless tobacco: Never Tobacco comments: Quit smoking: down to 2 cigarettes a day Substance and Sexual Activity Alcohol use: Yes Drug use: Yes Types: Marijuana SCREENINGS PHYSICAL EXAM ED Triage Vitals Temp Pulse Resp BP -- -- -- -- SpO2 Temp src Heart Rate Source Patient Position -- -- -- -- BP Location FiO2 (%) -- -- Physical Exam General: WDWN adult in NAD. Non-toxic appearing HENT: Head NCAT, EOMI with no erythema, swelling or discharge. TMs normal bilaterally There is normal bilaterally Oropharyngeal mucus membranes moist, pink, no exudate. All of the maxillary/upper teeth have been replaced by dentures. Tooth #29 is broken off at the gumline and is tender to palpation. There is no purulent or bloody drainage from the socket. There is minimal surrounding gingivitis but there is no abscess to drain. There is no fluctuance or purulent collection. Teeth #30, 31, 32 are all gone. Tooth #28 has multiple cavities which have been filled. There is no abscess in the oropharynx or the gingival tissue surrounding the mandibular teeth. Neck: Full ROM, supple, no rigidity, no stridor no trismus no drooling. Speaks in a normal tone of voice. Cardio: RRR, nl s1 s2 no m/r/g, extremities warm, dry, well perfused, non-edematous Lungs: CTAB, no wheezes, rales, rhonchi, normal work of breathing Abdomen: Soft, NT, ND, non-rigid, BS x 4 normal Skin: Warm, dry, pink, no rashes, bruising, or lacerations, no petechiae, no purpura. There is no facial cellulitis, there is no abscess in th (more content not included)... Normal [facility] Basophil percentageOrdered B y: [facility] on 03-12-2023 Bilirubin [Mass/Vol] 0.60 mg/dL 0.20-1.00 [facility] Comment on above: For patients on eltr ombopag therapy, use of Dimension [place] TBIL is not recommended. Chloride [Moles/Vol] 102 mmol/L 98-107 [facility] Cholesterol [Mass/Vol] 281 mg/dL <200 [facility] Comment on above: <200 mg/dL Desirable 200-240 mg/dL Borderline >240 mg/dL High Risk Glucose [Mass/Vol] 108 mg/dL 74-106 [facility] Comment on above: Fasting Glucose resu lt from 100 to 125 mg/dL suggests IMPAIRED HOMEOSTASIS per A.D.A. criteria. Potassium [Moles/Vol] 3.5 mmol/L 3.5-5.1 [facility] Protein [Mass/Vol] 7.8 g/dL 6.4-8.2 [facility] Sodium [Moles/Vol] 136 mmol/L 136-145 [facility] Triglyceride [Mass/Vol] 182 mg/dL <199 [facility] Comment on above: The drugs N-Acetylcy steine and Metamizole may falsely depress this assay.Serum Triglycerides Reference Interval Normal <150 mg/dL Borderline high 150 - 199 mg/dL High 200 - 499 mg/dL Very High > or = 500 mg/dL WBC (Bld) [#/Vol] 5.6 10*3/uL 4.4-11.0 [facility] Blood erythrocytes count (nu mber/volume)Ordered By: [facility] on 03-12-2023 RBC (Bld) [#/Vol] 4.77 10*6/uL 4.2-5.4 [facility] Blood hemoglobin measurement (mass/volume)Ordered By: [facility] on 03-12-2023 Hemoglobin (Bld) [Mass/Vol] 15.9 g/dL 12.0-15.0 [facility] Blood platelet mean volumeOr dered By: [facility] on 03-12-2023 Platelet mean volume (Bld) [Entitic vol] 9.1 fL 6.2-12.0 [facility] Determination of erythrocyte mean corpuscular volume (MCV)Ordered By: [facility] on 03-12-2023 MCV (RBC) [Entitic vol] 98.5 fL 81-99 [facility] Hematocrit Auto (Bld) [Volum e fraction]Ordered By: [facility] on 03-12-2023 Hematocrit (Bld) [Volume fraction] 47.0 % 37-47 [facility] - Chemistry and C hemistry - challengeOrdered By: [facility] on 03-12-2023 ALP [Catalytic activity/Vol] 122 U/L 45-117 [facility] ALT [Catalytic activity/Vol] 18 U/L 13-56 [facility] CO2 [Moles/Vol] 26.0 mmol/L 21.0-32.0 [facility] Globulin (S) [Mass/Vol] 4.1 g/dL 2.2-4.2 [facility] Lipase [Catalytic activity/Vol] 30 U/L 13-75 [facility] Comment on above: Please note:LIPASE r evised reference range effective 23. New Lipase methodology. Expected to produce lower values than the previous assay method. NEW Reference Range: 13 - 75 U/L Magnesium [Mass/Vol] 2.5 mg/dL 1.6-2.6 [facility] Urea nitrogen/Creatinine [Mass ratio] 15.3 mg/mg 10-20 [facility] - Hematology and Cell countsOrdered By: SAFIA HALE on 03-12-2023 Erythrocyte distribution width (RBC) [Entitic vol] 51.1 fL 35.1-43.9 [facility] Erythrocyte distribution width (RBC) [Ratio] 13.9 % 11.6-14.6 [facility] MCH (RBC) [Entitic mass] 33.3 pg 27.0-32.0 [facility] MCHC Auto (RBC) [Mass/Vol]Or dered By: SAFIA HALE on 03-12-2023 MCHC (RBC) [Mass/Vol] 33.8 g/dL 32-36 [facility] No Panel InformationOrdered By: SAFIA HALE on 03-12-2023 Estimated GFR (MDRD) Amer 88 mL/min >60 [facility] Comment on above: GFR Calc Estimated GFR (MDRD) Non-Af Amer 72 mL/min >60 [facility] Comment on above: Non- GFR Calc Thyroid Stimulating Hormone (TSH) 5.53 uIU/mL 0.358-3.74 [facility] Vitamin D 25-Hydroxy 39.0 ng/mL [facility] Comment on above: Vitamin D 25(OH) Sta tus Range Deficiency <20 ng/mL (50nmol/L) Insufficiency 20 - 30 ng/mL (50 - 75 nmol/L) Sufficiency 30 - 100 ng/mL (75 - 250 nmol/L) Toxicity >100 ng/mL (>250 nmol/L) Platelets bldOrdered By: RAFFAELE ECKERT on 03-12-2023 Platelets (Bld) [#/Vol] 308 10*3/uL 150-450 [facility] Serum or plasma albumin amado urement (mass/volume)Ordered By: SAFIA HALE on 03-12-2023 Albumin [Mass/Vol] 3.7 g/dL 3.2-5.0 [facility] Serum or plasma albumin/glob ulin mass ratioOrdered By: SAFIA HALE on 03-12-2023 Albumin/Globulin [Mass ratio] 0.9 {ratio} 0.9-2.4 [facility] Serum or plasma calcium amado urement (mass/volume)Ordered By: [facility] on 03-12-2023 Calcium [Mass/Vol] 9.4 mg/dL 8.5-10.1 [facility] Serum or plasma cholesterol in HDL measurement (mass/volume)Ordered By: [facility] on 03-12-2023 Cholesterol in HDL [Mass/Vol] 78 mg/dL >40 [facility] Comment on above: The drugs N-Acetylcy steine and Metamizole may falsely depress this assay. Reference Range HDL <40 mg/dL Low HDL Cholesterol HDL >or= 60 mg/dL High HDL Cholesterol Serum or plasma cholesterol in VLDL measurement (mass/volume)Ordered By: [facility] on 03-12-2023 Cholesterol in VLDL [Mass/Vol] 36 mg/dL 5-40 [facility] Serum or plasma creatinine m easurement (mass/volume)Ordered By: [facility] on 03-12-2023 Creatinine [Mass/Vol] 0.85 mg/dL 0.55-1.02 [facility] Comment on above: The validity of the calculated GFR & GFRAA in patients over 70 years has not been determined. Clinical correlation is essential. Serum or plasma low density lipoprotein (LDL) cholesterol measurement (mass/volume)Ordered By: [facility] on 03-12-2023 Cholesterol in LDL [Mass/Vol] 167 mg/dL 0-130 [facility] Serum or plasma urea nitroge n measurement (mass/volume)Ordered By: [facility] on 03-12-2023 Urea nitrogen [Mass/Vol] 13 mg/dL 7-18 [facility] Thin prep Papanicolaou smear with manual screeningOrdered By: [facility] on 03-12-2023 Thin prep Papanicolaou smear with manual screening 20 U/L 15-37 [facility] Thin prep Papanicolaou smear with manual screening 8 5-15 [facility] Whole blood hemoglobin A1c/t otal hemoglobin ratio (mass fraction)Ordered By: [facility] on 03-12-2023 HbA1c (Bld) [Mass fraction] 5.5 % 3.8-5.6 [facility] Comment on above: Normal < 5.7 % Predi abetic 5.7 - 6.4 % Diabetic >or= 6.5 % Please note range changes. 36on 01-18-2023 36 Phone has calling restrictions to pre-visit plan for appointment with Dr Jaime on 01/21/23. [address] call to office.. If after hours please ask patient to arrive 15 minutes early with Photo ID, insurance card, and a mask. Fasting: yes What are we seeing pt for? If you speak with pt please ask the following questions- Is your address, phone number, and insurance the same? (Verify with chart) Have you been exposed to or tested for Covid in the last 10 days? Do you have any Covid symptoms? Have you been outside of [place] in the last month? Any changes to your medications or allergies? (Verify with chart) Any surgeries since you were seen last? Are you a smoker/vape/ chew? Do you drink alcohol? Are you interested in receiving any of the following? Colonoscopy referral- Hep c/hiv screening- Pneumonia vaccine- Tdap vaccine- Pap/mammogram- Shingles vaccine- Any problems paying for the very basic- food, housing, medical care, heat? Any worries about running out of food before you have money to buy more? Do you have reliable transportation? [facility] 36on 01-11-2023 36 S: Patient spoke adelita [facility] nurse regarding medication refills B: Amitriptyline 10 mg; 2.5 tablets HS Cymbalta 60mg; take 2 daily Hydroxyzine HCL 25mg; 1 every 8 hours as needed for anxiety Metoprolol succinate XL 50mg; 1 daily A: Patient is tearful and did not understand that she was not established at this time with Dr. Jaime. She is asking for someone to call in her medications. Patient declined earlier appointment offered with Dr. Johnson. I spoke with Dr. Johnson who states she is willing to refill medications for 30 days until patient can get a New Patient with Dr. Jaime to get established. Patient is agreeable. R: New Patient appointment scheduled with Dr. Jaime on 01/21 at 1115am. Patient aware of appointment. Medications called in to pharmacy; 30 day supply, no refills. Patient advised medications were being called in. Reason for Disposition ? [1] Prescription refill request for ESSENTIAL medicine (i.e., likelihood of harm to patient if not taken) AND [2] triager unable to refill per department policy Protocols used: Medication Refill and [facility]al [id number] FYI: Called pt. She stated Dr. Jaime is now her PCP. Does not wish to schedule an appointment with Dr. Johnson. PCP updated in chart. Medications that were sent to Pharmacy yesterday canceled. [facility] 36on 01-09-2023 36 Call this patient,Patient requested refills of antidepressants and blood pressure. She has not been seen by me since 2020. She saw dr jaime almost 1 year ago. I sent in 2 weeks of her medication. I will not be able to refill medication any further until she is seen and evaluated for an appointment. I will squeeze her in on 01/15 either at 9:40 or 4 pm. Call and get her scheduled. [facility] 36 See other TE [facility] 36 Medication name: DULoxetine (CYMBALTA) 60 MG extended release capsule take 2 capsules by mouth once daily -- 90 days Hyrdoxyzine 25 mg- take one tablet 3 times a day. -- 30 days metoprolol succinate (TOPROL XL) 50 MG extended release tablet take 1 tablet by mouth - 90 days amitriptyline (ELAVIL) 10 MG tablet take 2 & 1/2 tablets -- 30 days Note: The patient is out of medication. Medication dosage: mg (Miligrams Monthly quantity needed: How many day supply requesting: Medication route: oral (PO) Medication administration time(s): daily If taking medication PRN, reason for taking medication: N/A If this is a controlled substance do you receive this or any other controlled medication from any other doctor or facility: No Ordering provider: Dr. Jaime Date of last office visit: 02-13-2022 Date of next office visit: none Date of last refill: (see medication tab): 03-23-2023 Not listed on chart 03-26-2022 03-26-2022 Updated/Validated preferred pharmacy: Yes Patient instructed to contact the pharmacy prior to picking up the medication: Yes [facility] Progress Noteon 01-03-2023 Progress Note Message left on voicemail as follows:This is the nurse calling from [facility] on behalf of Lisa Johnson MD. Upon reviewing your chart, your last Blood pressure reading was BP Readings from Last 1 Encounters: 02/13/22 (!) 157/94 If pt. Returns call please schedule HTN follow up within 30 days. ED message and education sent via [employer]. [facility] 36on 12-17-2022 36 Last seen:12/19/20 Scheduled:n/a Normal [facility] 36 Needs sent to [facility] 36 Prescription Request : Last medication check: 02/13/22 Last physical exam: none Next scheduled appointment: none CSA on file (date): na Last urine drug screen: na Last date of refill on this medication 03/26/22 90 day 1 refill Normal [facility] CR Spine Lumbosacral Complet e w/ Bending min 6 vwson 07-06-2021 CR Spine Lumbosacral Complete w/ Bending min 6 vws Patient Name: RAINER SMART Diagnostic Radiology ACCESSION EXAM DATE/TIME PROCEDURE ORDERING PROVIDER [phone] 07/06/2021 13:19 EDT CR Spine Lumbosacral MD NEELAM, SUMIT Complete w/ Bending CPT code 73740 Reason For Exam (CR Spine Lumbosacral Complete w/ Bending) M51.36, Other intervertebral disc degeneration, lumbar spine Report LUMBAR SPINE SERIES CLINICAL INDICATION: Back pain AP, bilateral oblique, and lateral views of the lumbar spine were obtained. Flexion and extension views in the lateral projection were also obtained. COMPARISON: 03/18/2019. FINDINGS: There is a grade 1 anterolisthesis of L5 on S1. Bilateral pars interarticularis defects are present at L5. The appearance is similar to the study from 2019. Alignment of the lumbar spine is otherwise within normal limits. There is no abnormal motion on the flexion or extension images provided. There is mild to moderate loss of intervertebral disc space height and degenerative endplate spurring at L5/S1. Slight degenerative endplate spurring is noted within the remainder of the lumbar spine. The sacroiliac joints appear grossly normal. IMPRESSION: Grade 1 anterolisthesis of L5 on S1 with bilateral L5 pars interarticularis defects. The appearance is similar to the prior study. Eljh-vj-jqigrzye degenerative changes at L5/S1. Mild degenerative changes within the remainder of the lumbar spine. Report Dictated on Final Dictating Physician: MD FAY JONATHAN R Signed Date and Time: 07/06/2021 3:00 pm Signed by: MD FAY JONATHAN R Transcribed Date and Time: 07/06/2021 3:01 Normal [facility] XR LUMBOSACRAL W OBLIQUES AN D FLEXION AND EXTENSIONOrdered By: Sumit Morelos on 07-06-2021 Patient Name: RAINER SMART Diagnostic Radiology ACCESSION EXAM DATE/TIME PROCEDURE ORDERING PROVIDER [id number] 07/06/2021 13:19 EDT CR Spine Lumbosacral MD NEELAM, SUMIT Complete w/ Bending CPT code 99120 Reason For Exam (CR Spine Lumbosacral Complete w/ Bending) M51.36, Other intervertebral disc degeneration, lumbar spine Report LUMBAR SPINE SERIES CLINICAL INDICATION: Back pain AP, bilateral oblique, and lateral views of the lumbar spine were obtained. Flexion and extension views in the lateral projection were also obtained. COMPARISON: 03/18/2019. FINDINGS: There is a grade 1 anterolisthesis of L5 on S1. Bilateral pars interarticularis defects are present at L5. The appearance is similar to the study from 2019. Alignment of the lumbar spine is otherwise within normal limits. There is no abnormal motion on the flexion or extension images provided. There is mild to moderate loss of intervertebral disc space height and degenerative endplate spurring at L5/S1. Slight degenerative endplate spurring is noted within the remainder of the lumbar spine. The sacroiliac joints appear grossly normal. IMPRESSION: Grade 1 anterolisthesis of L5 on S1 with bilateral L5 pars interarticularis defects. The appearance is similar to the prior study. Uetj-xt-ihnogyfr degenerative changes at L5/S1. Mild degenerative changes within the remainder of the lumbar spine. Report Dictated on --- Final --- Dictating Physician: MD FAY JONATHAN R Signed Date and Time: 07/06/2021 3:00 pm Signed by: MD FAY JONATHAN R Transcribed Date and Time: 07/06/2021 3:01 [facility] Work Phone: [facility], [facility] Incoming Radiology Results From [facility] - 07/06/2021 3:01 PM EDT Patient Name: RAINER SMART Diagnostic Radiology ACCESSION EXAM DATE/TIME PROCEDURE ORDERING PROVIDER [id number] 07/06/2021 13:19 EDT CR Spine Lumbosacral MD NEELAM, SUMIT Complete w/ Bending CPT code 81713 Reason For Exam (CR Spine Lumbosacral Complete w/ Bending) M51.36, Other intervertebral disc degeneration, lumbar spine Report LUMBAR SPINE SERIES CLINICAL INDICATION: Back pain AP, bilateral oblique, and lateral views of the lumbar spine were obtained. Flexion and extension views in the lateral projection were also obtained. COMPARISON: 03/18/2019. FINDINGS: There is a grade 1 anterolisthesis of L5 on S1. Bilateral pars interarticularis defects are present at L5. The appearance is similar to the study from 2019. Alignment of the lumbar spine is otherwise within normal limits. There is no abnormal motion on the flexion or extension images provided. There is mild to moderate loss of intervertebral disc space height and degenerative endplate spurring at L5/S1. Slight degenerative endplate spurring is noted within the remainder of the lumbar spine. The sacroiliac joints appear grossly normal. IMPRESSION: Grade 1 anterolisthesis of L5 on S1 with bilateral L5 pars interarticularis defects. The appearance is similar to the prior study. Lcnv-df-vucqxdam degenerative changes at L5/S1. Mild degenerative changes within the remainder of the lumbar spine. Report Dictated on --- Final --- Dictating Physician: MD FAY JONATHAN R Signed Date and Time: 07/06/2021 3:00 pm Signed by: MD FAY JONATHAN R Transcribed Date and Time: 07/06/2021 3:01 [facility] Work Phone: [facility] Work Phone: MRI CERVICAL SPINE WO CONTRA STOrdered By: Kirsty Liang on 05-24-2021 Patient Name: RAINER SMART Magnetic Resonance Imaging ACCESSION EXAM DATE/TIME PROCEDURE ORDERING PROVIDER [id number] 05/24/2021 08:18 EDT MRI Spine Cervical w/o LENINPamEVETTES-BC, Contrast KIRSTY Gonzales CPT code 18208 Reason For Exam (MRI Spine Cervical w/o Contrast) Disease of spinal cord, unspecified Report Reasons for examination: Neck pain with bilateral radiculopathy. Sagittal T1 and T2 weighted images of the cervical spine and axial gradient echo scans were performed. There is normal alignment of the cervical vertebral bodies on the sagittal images. The marrow space signal intensity is normal except for degenerative changes especially at C5-C6. The craniocervical junction and C1-2 junction appear normal except for hypertrophic degenerative changes anteriorly at the C1-C2 articulation without cord impingement. The brain stem and cervical spinal cord appear normal (there appears to be an artifact at the C7 level on sagittal T1-weighted images). At C2-3, the disc is normal. There is no significant central canal stenosis. At C3-4, the disc is normal except for mild bulging. There is no central canal stenosis. At C4-5, the disc is degenerated and narrowed with posterior ridging and bulging producing trace anterior cord impingement. There is no central canal stenosis. Facet hypertrophy with mild left foraminal narrowing At C5-6, the disc is degenerated and narrowed with posterior ridging and bulging. There is no central canal stenosis. There is trace anterior cord impingement. Facet hypertrophy with mild left foraminal narrowing At C6-7, the disc is degenerated and narrowed with posterior ridging and bulging. There is no central canal stenosis. There is trace anterior cord impingement. Facet hypertrophy with mild left foraminal narrowing At C7-T1, the disc is mildly bulging. There is no central canal stenosis. Magnetic Resonance Imaging Report IMPRESSION: Multilevel degenerative disc disease as discussed above (greatest at C4-C5, C5-C6, and C6-C7 levels). Report Dictated on Workstation: [id number] --- Final --- Dictated: 05/24/2021 8:55 am Dictating Physician: MD LEWIS WILLIAM Signed Date and Time: 05/24/2021 9:06 am Signed by: MD LEWIS WILLIAM Transcribed Date and Time: 05/24/2021 8:55 [facility] Work Phone: [facility], [facility] Incoming Radiology Results From [facility] - 05/24/2021 9:07 AM EDT [facility]: [id number] ACCESSION EXAM DATE/TIME PROCEDURE ORDERING PROVIDER [id number] 05/24/2021 08:18 EDT MRI Spine Cervical w/o SLIM LIANG, Contrast KIRSTY Gonzales CPT code 41932 Reason For Exam (MRI Spine Cervical w/o Contrast) Disease of spinal cord, unspecified Report Reasons for examination: Neck pain with bilateral radiculopathy. Sagittal T1 and T2 weighted images of the cervical spine and axial gradient echo scans were performed. There is normal alignment of the cervical vertebral bodies on the sagittal images. The marrow space signal intensity is normal except for degenerative changes especially at C5-C6. The craniocervical junction and C1-2 junction appear normal except for hypertrophic degenerative changes anteriorly at the C1-C2 articulation without cord impingement. The brain stem and cervical spinal cord appear normal (there appears to be an artifact at the C7 level on sagittal T1-weighted images). At C2-3, the disc is normal. There is no significant central canal stenosis. At C3-4, the disc is normal except for mild bulging. There is no central canal stenosis. At C4-5, the disc is degenerated and narrowed with posterior ridging and bulging producing trace anterior cord impingement. There is no central canal stenosis. Facet hypertrophy with mild left foraminal narrowing At C5-6, the disc is degenerated and narrowed with posterior ridging and bulging. There is no central canal stenosis. There is trace anterior cord impingement. Facet hypertrophy with mild left foraminal narrowing At C6-7, the disc is degenerated and narrowed with posterior ridging and bulging. There is no central canal stenosis. There is trace anterior cord impingement. Facet hypertrophy with mild left foraminal narrowing At C7-T1, the disc is mildly bulging. There is no central canal stenosis. Magnetic Resonance Imaging Report IMPRESSION: Multilevel degenerative disc disease as discussed above (greatest at C4-C5, C5-C6, and C6-C7 levels). Report Dictated on Workstation: [id number] --- Final --- Dictated: 05/24/2021 8:55 am Dictating Physician: MD LEWIS WILLIAM Signed Date and Time: 05/24/2021 9:06 am Signed by: MD LEWIS WILLIAM Transcribed Date and Time: 05/24/2021 8:55 [facility] Work Phone: [facility] Work Phone: MRI Spine Cervical w/o Contr ginny 05-24-2021 MRI Spine Cervical w/o Contrast Patient Name: RAINER SMART Magnetic Resonance Imaging ACCESSION EXAM DATE/TIME PROCEDURE ORDERING PROVIDER [id number] 05/24/2021 08:18 EDT MRI Spine Cervical w/o SLIM LIANG, Contrast KIRSTY WassermanNii CPT code 90233 Reason For Exam (MRI Spine Cervical w/o Contrast) Disease of spinal cord, unspecified Report Reasons for examination: Neck pain with bilateral radiculopathy. Sagittal T1 and T2 weighted images of the cervical spine and axial gradient echo scans were performed. There is normal alignment of the cervical vertebral bodies on the sagittal images. The marrow space signal intensity is normal except for degenerative changes especially at C5-C6. The craniocervical junction and C1-2 junction appear normal except for hypertrophic degenerative changes anteriorly at the C1-C2 articulation without cord impingement. The brain stem and cervical spinal cord appear normal (there appears to be an artifact at the C7 level on sagittal T1-weighted images). At C2-3, the disc is normal. There is no significant central canal stenosis. At C3-4, the disc is normal except for mild bulging. There is no central canal stenosis. At C4-5, the disc is degenerated and narrowed with posterior ridging and bulging producing trace anterior cord impingement. There is no central canal stenosis. Facet hypertrophy with mild left foraminal narrowing At C5-6, the disc is degenerated and narrowed with posterior ridging and bulging. There is no central canal stenosis. There is trace anterior cord impingement. Facet hypertrophy with mild left foraminal narrowing At C6-7, the disc is degenerated and narrowed with posterior ridging and bulging. There is no central canal stenosis. There is trace anterior cord impingement. Facet hypertrophy with mild left foraminal narrowing At C7-T1, the disc is mildly bulging. There is no central canal stenosis. Magnetic Resonance Imaging Report IMPRESSION: Multilevel degenerative disc disease as discussed above (greatest at C4-C5, C5-C6, and C6-C7 levels). Report Dictated on Workstation: [id number] Final Dictated: 05/24/2021 8:55 am Dictating Physician: MD LEWIS WILLIAM Signed Date and Time: 05/24/2021 9:06 am Signed by: MD LEWIS WILLIAM Transcribed Date and Time: 05/24/2021 8:55 Normal [facility] CR Spine Cervical 4+ Viewson 2021 CR Spine Cervical 4+ Views Patient [facility]: [id number]iology ACCESSION EXAM DATE/TIME PROCEDURE ORDERING PROVIDER [id number] 2021 15:15 EDT CR Spine Cervical 4+ SLIM LIANG, John Gonzales CPT code 38973 Reason For Exam (CR Spine Cervical 4+ Views) cervical myelopathy Report Indication: Neck pain. AP and lateral views of the cervical spine. Lateral views performed with neutral, flexion and extension positioning. With flexion, there is 1.3 mm of anterolisthesis of C3 in reference to C4. Alignment of vertebral bodies is maintained on neutral and extension lateral views. Moderate disc space narrowing at C4-C5, C5-C6 and C6-C7. Prominent degenerative endplate changes at these levels. IMPRESSION: Mild anterolisthesis of C3 in reference to C4 with flexion only. Moderate degenerative disc and endplate changes at the C4-C7 levels. Report Dictated on Final Dictated: 03/23/2021 8:45 am Dictating Physician: MD BLAIR LAURA Signed Date and Time: 03/23/2021 8:47 am Signed by: MD BLAIR LAURA Transcribed Date and Time: 03/23/2021 8:45 Normal [facility] Anti-Nuclear Antibodyon 05-0 ERASMO Titer < 1 : 80 Normal <1:80 [facility] Comment on above: Result Comment: Test ed by Indirect Immunofluorescence Assay (IFA). Performed By: #### E SR, CMP3, HEMDF, URIC3 #### [facility] [address] [place] [address] #### RFB #### [facility] [address] [place] [address] #### ANA3 #### [facility] [address] [place] [address] CR Hip w/ Pelvis Bilateral 5 + Viewson 03-10-2021 CR Hip w/ Pelvis Bilateral 5+ Views Patient Name: RAINER SMART Diagnostic Radiology ACCESSION EXAM DATE/TIME PROCEDURE ORDERING PROVIDER [id number] 03/10/2021 10:05 EDT CR Hip w/ Pelvis MD JAX, LISA Bilateral 5+ View CPT code 98269 Reason For Exam (CR Hip w/ Pelvis Bilateral 5+ View) bilat hip pain Report BILATERAL HIPS CLINICAL INDICATION: Bilateral hip pain An AP view of the pelvis followed by AP and lateral views of the left and right hips were performed. COMPARISON: None FINDINGS: No fracture of the bony pelvis is identified. There is no fracture or dislocation of the left or right hip. The left and right hip joint spaces appear relatively well-preserved. Mild acetabular spurring is noted bilaterally. No bony lytic or blastic lesions are seen. The soft tissues are unremarkable. IMPRESSION: No fracture or dislocation of the pelvis, left hip, or right hip is identified. Mild osteoarthritis of the bilateral hips. Report Dictated on Final Dictating Physician: MD FAY JONATHAN R Signed Date and Time: 03/10/2021 3:49 pm Signed by: MD FAY JONATHAN R Transcribed Date and Time: 03/10/2021 3:50 Normal [facility] Comp Metabolic Panelon 03-10 ALT [Catalytic activity/Vol] 20 U/L Normal 0-34 [facility] Comment on above: Result Comment: The ALT test is performed by an updated assay method. Please note that the reference intervals have been changed and are now sex specific. Performed By: #### E SR, CMP3, HEMDF, URIC3 #### [facility] [address] [place] [address] #### RFB #### [facility] [address] [place] [address] #### ANA3 #### [address] Calcium [Mass/Vol] 9.1 mg/dL Normal 8.4-10.4 [facility] Comment on above: Performed By: #### E SR, CMP3, HEMDF, URIC3 #### [facility] [address] [facility] [place] [address] #### RFB #### [place] [address] [place] [address] #### ANA3 #### [address] [address] ALP [Catalytic activity/Vol] 78 U/L Normal 38-126 [facility] Comment on above: Performed By: #### E SR, CMP3, HEMDF, URIC3 #### [facility] [address] [place] [address] #### RFB #### [place] [address] [place] [address] #### ANA3 #### [address] [address] Anion gap [Moles/Vol] 2 mmol/L Low 3-13 [facility] Comment on above: Performed By: #### E SR, CMP3, HEMDF, URIC3 #### [facility] [address] [place] [address] #### RFB #### [place] [address] [place] [address] #### ANA3 #### [address] [phone] AST [Catalytic activity/Vol] 21 U/L Normal 15-46 [facility] Comment on above: Performed By: #### E SR, CMP3, HEMDF, URIC3 #### [facility] [address] [place] [address] #### RFB #### [facility] [address] [place] [address] #### ANA3 #### [facility] [address] [place] [address] Bilirubin [Mass/Vol] 0.6 mg/dL Normal 0.2-1.3 [facility] Comment on above: Performed By: #### E SR, CMP3, HEMDF, URIC3 #### [facility] [address] [place] [address] #### RFB #### [facility] [address] [place] [address] #### ANA3 #### [address] CO2 [Moles/Vol] 37 mmol/L High 22-30 [facility] Comment on above: Performed By: #### E SR, CMP3, HEMDF, URIC3 #### [facility] [address] [place] [address] #### RFB #### [facility] [address] [place] [address] #### ANA3 #### [address] [address] Creatinine [Mass/Vol] 0.67 mg/dL Normal 0.52-1.25 [facility] Comment on above: Performed By: #### E SR, CMP3, HEMDF, URIC3 #### [facility] [address] [place] [address] #### RFB #### [facility] [address] [place] [address] #### ANA3 #### [address] [address] eGFR OTHER > 90.0 Normal >60 [facility] Comment on above: Result Comment: KDIG O guidelines provide the following GFR categories: Stage GFR(ml/min/1.73 m2) Terms G1 >=90 Normal or high G2 60-89 Mildly decreased* G3a 45-59 Mildly to moderately decreased G3b 30-44 Moderately to severely decreased G4 15-29 Severely decreased G5 <15 Kidney failure *Relative to young adult level. In the absence of evidence of kidney damage, neither GFR category G1 nor G2 fulfill the criteria for CKD. The CKD-EPI equation is validated in individuals 18 years of age and older. Currently the best equation for estimating glomerular filtration rate (GFR) from serum creatinine in children is the [place] equation. It is less accurate in patients with extremes of muscle mass, restriction of dietary protein, ingestion of creatine, extra-renal metabolism of creatinine, or treatment with medications that affect renal tubular creatinine secretion. Performed By: #### E SR, CMP3, HEMDF, URIC3 #### [facility] [employer] [facility] [address] [place] [address] #### RFB #### [facility] [employer] [facility] [address] [place] [address] #### ANA3 #### [facility] [employer] [address] [address] GFR/1.73 sq M.predicted among blacks MDRD (S/P/Bld) [Vol rate/Area] mL/min/{1.73_m2} Normal >60 [facility] Comment on above: Performed By: #### E SR, CMP3, HEMDF, URIC3 #### [facility] [employer] [facility] [address] [place] [address] #### RFB #### [facility] [employer] [facility] [address] [place] [address] #### ANA3 #### [facility] [employer] [address] [address] Glucose [Mass/Vol] 117 mg/dL High 70-100 [facility] Comment on above: Performed By: #### E SR, CMP3, HEMDF, URIC3 #### [facility] [employer] [facility] [address] [place] [address] #### RFB #### [facility] [employer] [address] [place] [address] #### ANA3 #### [facility] [address] [place] [address] Protein [Mass/Vol] 6.8 g/dL Normal 6.3-8.2 [facility] Comment on above: Performed By: #### E SR, CMP3, HEMDF, URIC3 #### [facility] [address] [place] [address] #### RFB #### [facility] [address] [place] [address] #### ANA3 #### [address] [address] Urea nitrogen [Mass/Vol] 13 mg/dL Normal 7-20 [facility] Comment on above: Performed By: #### E SR, CMP3, HEMDF, URIC3 #### [facility] [address] [place] [address] #### RFB #### [facility] [address] [place] [address] #### ANA3 #### [address] [address] Potassium [Moles/Vol] 3.3 mmol/L Low 3.5-5.1 [facility] Comment on above: Performed By: #### E SR, CMP3, HEMDF, URIC3 #### [facility] [address] [place] [address] #### RFB #### [facility] [address] [place] [address] #### ANA3 #### [address] [address] Sodium [Moles/Vol] 138 mmol/L Normal 135-145 [facility] Comment on above: Performed By: #### E SR, CMP3, HEMDF, URIC3 #### [facility] [address] [place] [address] #### RFB #### [facility] [address] [place] [address] #### ANA3 #### [address] [address] Albumin [Mass/Vol] 3.9 g/dL Normal 3.5-5.0 [facility] Comment on above: Performed By: #### E SR, CMP3, HEMDF, URIC3 #### [facility] [address] [facility] [place] [address] #### RFB #### [facility] [address] [place] [address] #### ANA3 #### [address] Chloride [Moles/Vol] 98 mmol/L Normal 98-107 [facility] Comment on above: Performed By: #### E SR, CMP3, HEMDF, URIC3 #### [facility] [address] [facility] [place] [address] #### RFB #### [facility] [address] [place] [address] #### ANA3 #### [address] Hemogram w/ Autodiffon 03-10 Abs Baso Cnt 0.0 10*3/uL Normal 0.0-0.2 [facility] Comment on above: Performed By: #### E SR, CMP3, HEMDF, URIC3 #### [facility] [address] [facility] [place] [address] #### RFB #### [facility] [address] [place] [address] #### ANA3 #### [address] Abs Neutrophile Cnt 3.3 10*3/uL Normal 1.8-7.0 [facility] Comment on above: Performed By: #### E SR, CMP3, HEMDF, URIC3 #### [facility] [address] [place] [address] #### RFB #### [facility] [address] [place] [address] #### ANA3 #### [address] [address] Basophils/100 WBC (Bld) 0.5 % Normal 0.0-2.0 [facility] Comment on above: Performed By: #### E SR, CMP3, HEMDF, URIC3 #### [facility] [address] [place] [address] #### RFB #### [facility] [address] [place] [address] #### ANA3 #### [address] [address] Eosinophils (Bld) [#/Vol] 0.1 10*3/uL Normal 0.0-0.5 [facility] Comment on above: Performed By: #### E SR, CMP3, HEMDF, URIC3 #### [facility] [address] [place] [address] #### RFB #### [address] [place] [address] #### ANA3 #### [address] [address] Eosinophils/100 WBC (Bld) 1.0 % Normal 1.0-6.0 [facility] Comment on above: Performed By: #### E SR, CMP3, HEMDF, URIC3 #### [facility] [address] [place] [address] #### RFB #### [facility] [facility] [address] [place] [address] #### ANA3 #### [address] [phone] Erythrocyte distribution width (RBC) [Ratio] 13.5 % Normal 11.5-14.5 [facility] Comment on above: Performed By: #### E SR, CMP3, HEMDF, URIC3 #### [facility] [address] [place] [address] #### RFB #### [facility] [address] [place] [address] #### ANA3 #### [address] [phone] Granulocytes/100 WBC (Bld) 65.3 % Normal 40.0-80.0 [facility] Comment on above: Performed By: #### E SR, CMP3, HEMDF, URIC3 #### [facility] [address] [place] [address] #### RFB #### [facility] [address] [place] [address] #### ANA3 #### [address] [phone] Hematocrit (Bld) [Volume fraction] 44.4 % Normal 35.0-47.0 [facility] Comment on above: Performed By: #### E SR, CMP3, HEMDF, URIC3 #### [facility] [employer] [facility] [address] [place] [address] #### RFB #### [facility] [employer] [facility] [address] [place] [address] #### ANA3 #### [facility] [employer] [address] [phone] Hemoglobin (Bld) [Mass/Vol] 15.3 g/dL Normal 11.7-16.0 [facility] Comment on above: Performed By: #### E SR, CMP3, HEMDF, URIC3 #### [facility] [employer] [facility] [address] [place] [address] #### RFB #### [facility] [employer] [facility] [address] [place] [address] #### ANA3 #### [facility] [employer] [address] [address] Lymphocytes (Bld) [#/Vol] 1.3 10*3/uL Normal 1.0-4.3 [facility] Comment on above: Performed By: #### E SR, CMP3, HEMDF, URIC3 #### [facility] [employer] [facility] [address] [place] [address] #### RFB #### [facility] [address] [place] [address] #### ANA3 #### [address] [address] Lymphocytes/100 WBC (Bld) 25.5 % Normal 20.0-40.0 [facility] Comment on above: Performed By: #### E SR, CMP3, HEMDF, URIC3 #### [facility] [address] [place] [address] #### RFB #### [facility] [address] [place] [address] #### ANA3 #### [address] MCH (RBC) [Entitic mass] 33.3 pg Normal 26.0-34.0 [facility] Comment on above: Performed By: #### E SR, CMP3, HEMDF, URIC3 #### [facility] [address] [place] [address] #### RFB #### [facility] [address] [place] [address] #### ANA3 #### [address] MCHC 34.4 % Normal 32.0-36.0 [facility] Comment on above: Performed By: #### E SR, CMP3, HEMDF, URIC3 #### [facility] [address] [place] [address] #### RFB #### [facility] [address] [place] [address] #### ANA3 #### [address] MCV (RBC) [Entitic vol] 96.9 fL Normal 79.0-98.0 [facility] Comment on above: Performed By: #### E SR, CMP3, HEMDF, URIC3 #### [facility] [address] [place] [address] #### RFB #### [facility] [address] [place] [address] #### ANA3 #### [address] Monocytes (Bld) [#/Vol] 0.4 10*3/uL Normal 0.0-0.8 [facility] Comment on above: Performed By: #### E SR, CMP3, HEMDF, URIC3 #### [facility] [address] [place] [address] #### RFB #### [facility] [address] [place] [address] #### ANA3 #### [facility] [address] [place] [address] Monocytes/100 WBC (Bld) 7.7 % Normal 2.0-10.0 [facility] Comment on above: Performed By: #### E SR, CMP3, HEMDF, URIC3 #### [facility] [address] [place] [address] #### RFB #### [facility] [address] [place] [address] #### ANA3 #### [place] [address] [place] [address] Platelet mean volume (Bld) [Entitic vol] 6.9 fL Low 7.4-10.4 [facility] Comment on above: Performed By: #### E SR, CMP3, HEMDF, URIC3 #### [facility] [address] [place] [address] #### RFB #### [facility] [address] [place] [address] #### ANA3 #### [facility] [address] [place] [address] Platelets (Bld) [#/Vol] 299 10*3/uL Normal 140-440 [facility] Comment on above: Performed By: #### E SR, CMP3, HEMDF, URIC3 #### [facility] [address] [place] [address] #### RFB #### [facility] [address] [place] [address] #### ANA3 #### [facility] [address] [place] [address] RBC (Bld) [#/Vol] 4.59 10*6/uL Normal 3.80-5.20 [facility] Comment on above: Performed By: #### E SR, CMP3, HEMDF, URIC3 #### [facility] [address] [place] [address] #### RFB #### [facility] [address] [place] [address] #### ANA3 #### [address] WBC (Bld) [#/Vol] 5.0 10*3/uL Normal 3.6-10.7 [facility] Comment on above: Performed By: #### E SR, CMP3, HEMDF, URIC3 #### [facility] [address] [place] [address] #### RFB #### [facility] [address] [place] [address] #### ANA3 #### [address] Rheumatiod Factor, Bloodon 0 03-10-2021 Rheumatoid Factor-Blood < 9 Normal 0-12 [facility] Comment on above: Performed By: #### E SR, CMP3, HEMDF, URIC3 #### [facility] [address] [place] [address] #### RFB #### [facility] [address] [place] [address] #### ANA3 #### [address] Sed Rateon 03-10-2021 Sed Rate 4 mm/h Normal 0-20 [facility] Comment on above: Performed By: #### E SR, CMP3, HEMDF, URIC3 #### [facility] [address] [place] [address] #### RFB #### [facility] [address] [place] [address] #### ANA3 #### [address] Uric Acidon 03-10-2021 Urate [Mass/Vol] 7.3 mg/dL Normal 2.5-8.5 [facility] Comment on above: Performed By: #### E SR, CMP3, HEMDF, URIC3 #### [facility] [address] [place] [address] #### RFB #### [facility] [address] [place] [address] #### ANA3 #### [facility] [address] [place] [address] CR Ankle 2 Views Bilateralon 12-19-2020 CR Ankle 2 Views Bilateral Patient Name: RAINER SMART Diagnostic Radiology ACCESSION EXAM DATE/TIME PROCEDURE ORDERING PROVIDER [id number] 12/19/2020 17:39 EST CR Ankle 2 Views MD JOHNSON DIANA Bilateral CPT code 96125 Reason For Exam (CR Ankle 2 Views Bilateral) Bilat ankle pain Report Bilateral ankle: 12/19/2020. Clinical Information: Pain. Findings: Two weightbearing views of the age ankle reveal the bones to be well mineralized. There is no evidence of fracture or dislocation. The ankle mortise is intact. There are bilateral plantar calcaneal spurs. Impression: No acute process. Report Dictated on Final Dictating Physician: MD SUERO RISA Signed Date and Time: 12/21/2020 7:34 am Signed by: MD SUERO RISA Transcribed Date and Time: 12/21/2020 7:35 Normal [facility] CR Foot Complete 3+ Views Bi lateralon 12-19-2020 CR Foot Complete 3+ Views Bilateral Patient Name: RAINER SMART Diagnostic Radiology ACCESSION EXAM DATE/TIME PROCEDURE ORDERING PROVIDER [id number] 12/19/2020 17:39 EST CR Foot Complete 3+ MD JOHNSON DIANA Views Bilateral CPT code 08541 Reason For Exam (CR Foot Complete 3+ Views Bilateral) bilat foot pain Report Bilateral foot 12/19/2020. Clinical Information: Pain. Findings: Three weightbearing views of each cyst foot reveal of the bones to be well mineralized. There is no evidence of fracture or dislocation. No erosive or destructive changes are seen. No radiopaque foreign bodies or subcutaneous emphysema is identified. There is a moderate hallux valgus deformity to each great toe with associated degenerative changes of the first metatarsal phalangeal joint bilaterally. Impression: No acute process. Bilateral hallux valgus with degenerative change. Report Dictated on Final Dictating Physician: MD SUERO RISA Signed Date and Time: 12/21/2020 7:38 am Signed by: MD SUERO RISA Transcribed Date and Time: 12/21/2020 7:39 Normal [facility] Comp Metabolic Panelon 12-19 ALT [Catalytic activity/Vol] 19 U/L Normal 0-34 [facility] Comment on above: Result Comment: The ALT test is performed by an updated assay method. Please note that the reference intervals have been changed and are now sex specific. Performed By: #### H EMDF, CMP3, LIPD2 #### [facility] [address] [place] [address] Calcium [Mass/Vol] 9.8 mg/dL Normal 8.4-10.4 [facility] Comment on above: Performed By: #### H EMDF, CMP3, LIPD2 #### [facility] [address] [place] [address] ALP [Catalytic activity/Vol] 97 U/L Normal 38-126 [facility] Comment on above: Performed By: #### H EMDF, CMP3, LIPD2 #### [facility] [address] [place] [address] Anion Gap 6 Normal [facility] Comment on above: Performed By: #### H EMDF, CMP3, LIPD2 #### [facility] [address] [place] [address] AST [Catalytic activity/Vol] 25 U/L Normal 15-46 [facility] Comment on above: Performed By: #### H EMDF, CMP3, LIPD2 #### [facility] [address] [place] [address] Bilirubin [Mass/Vol] 0.6 mg/dL Normal 0.2-1.3 [facility] Comment on above: Performed By: #### H EMDF, CMP3, LIPD2 #### [facility] [address] [place] [address] CO2 [Moles/Vol] 33 mmol/L High 22-30 [facility] Comment on above: Performed By: #### H EMDF, CMP3, LIPD2 #### [facility] [address] [place] [address] Creatinine [Mass/Vol] 0.72 mg/dL Normal 0.52-1.25 [facility] Comment on above: Performed By: #### H EMDF, CMP3, LIPD2 #### [facility] [address] [place] [address] eGFR OTHER > 90.0 Normal >60 [facility] Comment on above: Result Comment: KDIG O guidelines provide the following GFR categories: Stage GFR(ml/min/1.73 m2) Terms G1 >=90 Normal or high G2 60-89 Mildly decreased* G3a 45-59 Mildly to moderately decreased G3b 30-44 Moderately to severely decreased G4 15-29 Severely decreased G5 <15 Kidney failure *Relative to young adult level. In the absence of evidence of kidney damage, neither GFR category G1 nor G2 fulfill the criteria for CKD. The CKD-EPI equation is validated in individuals 18 years of age and older. Currently the best equation for estimating glomerular filtration rate (GFR) from serum creatinine in children is the [place] equation. It is less accurate in patients with extremes of muscle mass, restriction of dietary protein, ingestion of creatine, extra-renal metabolism of creatinine, or treatment with medications that affect renal tubular creatinine secretion. Performed By: #### H EMDF, CMP3, LIPD2 #### [facility] [address] [place] [address] GFR/1.73 sq M.predicted among blacks MDRD (S/P/Bld) [Vol rate/Area] mL/min/{1.73_m2} Normal >60 [facility] Comment on above: Performed By: #### H EMDF, CMP3, LIPD2 #### [facility] [address] [place] [address] Glucose [Mass/Vol] 109 mg/dL High 70-100 [facility] Comment on above: Performed By: #### H EMDF, CMP3, LIPD2 #### [facility] [address] [place] [address] Protein [Mass/Vol] 8.0 g/dL Normal 6.3-8.2 [facility] Comment on above: Performed By: #### H EMDF, CMP3, LIPD2 #### [facility] [address] [place] [address] Urea nitrogen [Mass/Vol] 15 mg/dL Normal 7-20 [facility] Comment on above: Performed By: #### H EMDF, CMP3, LIPD2 #### [facility] [address] [place] [address] Potassium [Moles/Vol] 3.1 mmol/L Low 3.5-5.1 [facility] Comment on above: Performed By: #### H EMDF, CMP3, LIPD2 #### [facility] [address] [place] [address] Albumin [Mass/Vol] 4.7 g/dL Normal 3.5-5.0 [facility] Comment on above: Performed By: #### H EMDGrace, CMP3, LIPD2 #### [facility] [address] [place] [address] Chloride [Moles/Vol] 96 mmol/L Low 98-107 [facility] Comment on above: Performed By: #### H EMDF, CMP3, LIPD2 #### [facility] [address] [place] [address] Sodium [Moles/Vol] 135 mmol/L Normal 135-145 [facility] Comment on above: Performed By: #### H EMDF, CMP3, LIPD2 #### [facility] [address] [place] [address] Hemogram w/ Autodiffon 12-19 Abs Baso Cnt 0.1 10*3/uL Normal 0.0-0.2 [facility] Comment on above: Performed By: #### H EMDF, CMP3, LIPD2 #### [facility] [address] [place] [address] Abs Neutrophile Cnt 4.0 10*3/uL Normal 1.8-7.0 [facility] Comment on above: Performed By: #### H EMDF, CMP3, LIPD2 #### [facility] [address] [place] [address] Basophils/100 WBC (Bld) 0.6 % Normal 0.0-2.0 [facility] Comment on above: Performed By: #### H EMDF, CMP3, LIPD2 #### [facility] [address] [place] [address] Eosinophils (Bld) [#/Vol] 0.1 10*3/uL Normal 0.0-0.5 [facility] Comment on above: Performed By: #### H EMDF, CMP3, LIPD2 #### [facility] [address] [place] [address] Eosinophils/100 WBC (Bld) 0.9 % Low 1.0-6.0 [facility] Comment on above: Performed By: #### H EMDF, CMP3, LIPD2 #### [facility] [address] [place] [address] Erythrocyte distribution width (RBC) [Ratio] 12.5 % Normal 11.5-14.5 [facility] Comment on above: Performed By: #### H EMDF, CMP3, LIPD2 #### [facility] [address] [place] [address] Granulocytes/100 WBC (Bld) 49.6 % Normal 40.0-80.0 [facility] Comment on above: Performed By: #### H EMDF, CMP3, LIPD2 #### [facility] [address] [place] [address] Hematocrit (Bld) [Volume fraction] 45.6 % Normal 35.0-47.0 [facility] Comment on above: Performed By: #### H EMDF, CMP3, LIPD2 #### [facility] [address] [place] [address] Hemoglobin (Bld) [Mass/Vol] 15.3 g/dL Normal 11.7-16.0 [facility] Comment on above: Performed By: #### H EMDF, CMP3, LIPD2 #### [facility] [address] [place] [address] Lymphocytes (Bld) [#/Vol] 3.3 10*3/uL Normal 1.0-4.3 [facility] Comment on above: Performed By: #### H EMDF, CMP3, LIPD2 #### [facility] [address] [place] [address] Lymphocytes/100 WBC (Bld) 40.5 % High 20.0-40.0 [facility] Comment on above: Performed By: #### H EMDF, CMP3, LIPD2 #### [facility] [address] [place] [address] MCH (RBC) [Entitic mass] 32.2 pg Normal 26.0-34.0 [facility] Comment on above: Performed By: #### H EMDF, CMP3, LIPD2 #### [facility] [address] [place] [address] MCHC 33.5 % Normal 32.0-36.0 [facility] Comment on above: Performed By: #### H EMDF, CMP3, LIPD2 #### [facility] [address] [place] [address] MCV (RBC) [Entitic vol] 96.0 fL Normal 79.0-98.0 [facility] Comment on above: Performed By: #### H EMDF, CMP3, LIPD2 #### [facility] [address] [place] [address] Monocytes (Bld) [#/Vol] 0.7 10*3/uL Normal 0.0-0.8 [facility] Comment on above: Performed By: #### H EMDF, CMP3, LIPD2 #### [facility] [address] [place] [address] Monocytes/100 WBC (Bld) 8.4 % Normal 2.0-10.0 [facility] Comment on above: Performed By: #### H EMDF, CMP3, LIPD2 #### [facility] [address] [place] [address] Platelet mean volume (Bld) [Entitic vol] 6.6 fL Low 7.4-10.4 [facility] Comment on above: Performed By: #### H EMDF, CMP3, LIPD2 #### [facility] [address] [place] [address] Platelets (Bld) [#/Vol] 344 10*3/uL Normal 140-440 [facility] Comment on above: Performed By: #### H EMDF, CMP3, LIPD2 #### [facility] [address] [place] [address] RBC (Bld) [#/Vol] 4.75 10*6/uL Normal 3.80-5.20 [facility] Comment on above: Performed By: #### H EMDF, CMP3, LIPD2 #### [facility] [address] [place] [address] WBC (Bld) [#/Vol] 8.2 10*3/uL Normal 3.6-10.7 [facility] Comment on above: Performed By: #### H EMDF, CMP3, LIPD2 #### [facility] [address] [place] [address] Lipid Panelon 12-19-2020 Chol/HDL 4 Normal [facility] Comment on above: Result Comment: Ref Range: < 3 Low Risk for CHD 3-6 Mod Risk for CHD > 6 High Risk for CHD Performed By: #### H EMDF, CMP3, LIPD2 #### [facility] [address] [place] [address] Cholesterol in HDL [Mass/Vol] 71 mg/dL High 40-60 [facility] Comment on above: Performed By: #### H EMDF, CMP3, LIPD2 #### [facility] [address] [place] [address] Low Density Lipoprotein 133 mg/dL Abnormal <100 [facility] Comment on above: Performed By: #### H EMDF, CMP3, LIPD2 #### [facility] [address] [place] [address] Triglyceride [Mass/Vol] 296 mg/dL Abnormal <150 [facility] Comment on above: Performed By: #### H EMDF, CMP3, LIPD2 #### [facility] [address] [place] [address] Cholesterol [Mass/Vol] 263 mg/dL Abnormal < 200 [facility] Comment on above: Performed By: #### H EMDF, CMP3, LIPD2 #### [facility] [address] [place] [address] Comprehensive Metabolic Pane vidal 02-18-2020 Albumin [Mass/Vol] 4.4 g/dL 3.5 - 5 g/dL [place], [place] Comment on above: Test Performed by [facility], [address] , [place] [address] ALP [Catalytic activity/Vol] 79 U/L 38 - 126 U/L [place], [place] Comment on above: Test Performed by [facility], [address] , [place] [address] ALT [Catalytic activity/Vol] 22 U/L 0 - 34 U/L [place], [place] Comment on above: Test Performed by [facility], [address] , [place] [address] The ALT test is performed by an updated assay method. Please note that the reference intervals have been changed and are now sex specific. Anion gap [Moles/Vol] 7 mmol/L [place], [place] Comment on above: Test Performed by [facility], [address] , [place] [address] AST [Catalytic activity/Vol] 38 U/L 15 - 46 U/L [place] Comment on above: Test Performed by [facility], [address] , [place] [address] Bilirubin Ql (U) 0.6 mg/dL 0.2 - 1.3 mg/dL [place] Comment on above: Test Performed by [facility], [address] , [place] [address] Calcium [Mass/Vol] 9.4 mg/dL 8.4 - 10. 4 mg/dL [place], [place] Comment on above: Test Performed by [facility], [address] , [place] [address] Chloride [Moles/Vol] 100 mmol/L 98 - 10 7 mmol/L [facility], [place] Comment on above: Test Performed by [facility], [address] , [place] [address] CO2 [Moles/Vol] 30 mmol/L 22 - 30 mmol/L [place], [place] Comment on above: Test Performed by [facility], [address] , [place] [address] Creatinine [Mass/Vol] 0.63 mg/dL 0.52 - 1.25 mg/dL [place], [place] Comment on above: Test Performed by [facility], [address] , [place] [address] EGFR IF NonAfrican [place]ian >60.0 >60 mL/min [place], [place] Comment on above: Test Performed by [facility], [address] , [place] [address] Source- MDRD equation with creatinine calibration to IDMS(NKDEP) eGFR not recommended for drug dose adjustment GFR/1.73 sq M predicted among blacks MDRD (S/P/Bld) [Vol rate/Area] mL/min/{1.73_m2} >60 mL/min [place], [place] Comment on above: Test Performed by [facility], [address] , [place] [address] Glucose [Mass/Vol] 100 mg/dL 70 - 100 mg/dL [place] Comment on above: Test Performed by [facility], [address] , [place] [address] Potassium [Moles/Vol] 3.8 mmol/L 3.5 - 5.1 mmol/L [place] Comment on above: Test Performed by [facility], [address] , [place] [address] Slightly hemolyzed Protein [Mass/Vol] 7.4 g/dL 6.3 - 8.2 g/dL [place] Comment on above: Test Performed by [facility], [address] , [place] [address] Sodium [Moles/Vol] 137 mmol/L 135 - 145 mmol/L [place] Urea nitrogen [Mass/Vol] 10 mg/dL 7 - 20 mg/dL [place] Comment on above: Test Performed by [facility], [address] , [place], [place] [address] Test Performed by [facility], [address] , [address] Hemogram (CBC) w/Auto Diffon 02-18-2020 Absolute Baso # 0.0 10*3/uL 0 - 0.2 10*3/uL [place], [place] Comment on above: Test Performed by [facility], [address] , [place] [address] Absolute Neut # 4.3 10*3/uL 1.8 - 7 10*3/uL [place] Comment on above: Test Performed by [facility], [address] , [place] [address] Basophils/100 WBC (Bld) 0.5 % 0 - 2 % [place] Comment on above: Test Performed by [facility], [address] , [place] [address] Eosinophils (Bld) [#/Vol] 0.1 10*3/uL 0 - 0.5 10*3/uL [place] Comment on above: Test Performed by [facility], [address] , [place] [address] Eosinophils/100 WBC (Bld) 0.9 % Low 1 - 6 % [place] Comment on above: Test Performed by [facility], [address] , [place] [address] Erythrocyte distribution width (RBC) [Ratio] 13.5 % 11.5 - 14.5 % [place] Comment on above: Test Performed by [facility], [address] , [place] [address] Granulocytes/100 WBC (Bld) 66.0 % 40 - 80 % [place] Comment on above: Test Performed by [facility], [address] , [place] [address] Hematocrit (Bld) [Volume fraction] 45.7 % 35 - 47 % [place], [place] Comment on above: Test Performed by [facility], [address] , [place] [address] Hemoglobin (Bld) [Mass/Vol] 15.6 g/dL 11.7 - 16 g/dL [place], [place] Comment on above: Test Performed by [facility], [address] , [place] [address] Interpretation and review of laboratory results Abnormal [place] Lymphocytes (Bld) [#/Vol] 1.6 10*3/uL 1 - 4.3 10*3/uL [place] Comment on above: Test Performed by [facility], [address] , [place] [address] Lymphocytes/100 WBC (Bld) 24.4 % 20 - 40 % [place] Comment on above: Test Performed by [facility], [address] , [place] [address] MCH (RBC) [Entitic mass] 34.1 pg High 26 - 34 pg [place] Comment on above: Test Performed by [facility], [address] , [place] [address] MCHC (RBC) [Mass/Vol] 34.2 % 32 - 36 % [place], [place] Comment on above: Test Performed by [facility], [address] , [place] [phone] MCV (RBC) [Entitic vol] 99.9 fL High 79 - 98 fL [place], [place] Comment on above: Test Performed by [facility], [address] , [place] [address] Monocytes (Bld) [#/Vol] 0.5 10*3/uL 0 - 0.8 10*3/uL [place] Comment on above: Test Performed by [facility], [address] , [place] [address] Monocytes/100 WBC (Bld) 8.2 % 2 - 10 % [place] Comment on above: Test Performed by [facility], [address] , [place] [phone] Platelet mean volume (Bld) [Entitic vol] 7.7 fL 7.4 - 10.4 fL [place] Comment on above: Test Performed by [facility], [address] , [place], [place] [address] Platelets (Bld) [#/Vol] 304 10*3/uL 140 - 440 10*3/uL [place] Comment on above: Test Performed by [facility], [address] , [place], [place] [address] RBC (Bld) [#/Vol] 4.57 10*6/uL 3.8 - 5.2 10*6/uL [place] Comment on above: Test Performed by [facility], [address] , [place], [place] [address] WBC (Bld) [#/Vol] 6.5 10*3/uL 3.6 - 10.7 10*3/uL [place] Test Performed by [facility], [address] , [address] Lipaseon 02-18-2020 Lipase [Catalytic activity/Vol] 79 U/L 23 - 300 U/L [place] Test Performed by [facility], [address] , [address] CBC Auto Differentialon 12-12 Absolute Baso # 0.0 10*3/uL 0 - 0.2 10*3/uL [facility] Work Phone: Absolute Neut # 3.4 10*3/uL 1.8 - 7 10*3/uL [facility] Work Phone: Basophils/100 WBC (Bld) 0.7 % 0 - 2 % [facility] Work Phone: Eosinophils (Bld) [#/Vol] 0.1 10*3/uL 0 - 0.5 10*3/uL [facility] Work Phone: Eosinophils/100 WBC (Bld) 1.9 % 1 - 6 % [facility] Work Phone: Erythrocyte distribution width (RBC) [Ratio] 12.7 % 11.5 - 14.5 % [facility] Work Phone: Granulocytes/100 WBC (Bld) 57.6 % 40 - 80 % [facility] Work Phone: Hematocrit (Bld) [Volume fraction] 46.6 % 35 - 47 % [facility] Work Phone: Hemoglobin (Bld) [Mass/Vol] 15.9 g/dL 11.7 - 16 g/dL [facility] Work Phone: Interpretation and review of laboratory results Abnormal [facility] Work Phone: Lymphocytes (Bld) [#/Vol] 1.9 10*3/uL 1 - 4.3 10*3/uL [facility] Work Phone: [phone] Lymphocytes/100 WBC (Bld) 31.4 % 20 - 40 % [facility] Work Phone: MCH (RBC) [Entitic mass] 34.0 pg 26 - 34 pg [facility] Work Phone: [phone] MCHC (RBC) [Mass/Vol] 34.2 % 32 - 36 % [facility] Work Phone: MCV (RBC) [Entitic vol] 99.4 fL High 79 - 98 fL [facility] Work Phone: Monocytes (Bld) [#/Vol] 0.5 10*3/uL 0 - 0.8 10*3/uL [facility] Work Phone: [phone] Monocytes/100 WBC (Bld) 8.4 % 2 - 10 % [facility] Work Phone: Platelet mean volume (Bld) [Entitic vol] 7.3 fL Low 7.4 - 10.4 fL [facility] Work Phone: Platelets (Bld) [#/Vol] 320 10*3/uL 140 - 440 10*3/uL [facility] Work Phone: RBC (Bld) [#/Vol] 4.69 10*6/uL 3.8 - 5.2 10*6/uL [facility] Work Phone: WBC (Bld) [#/Vol] 5.9 10*3/uL 3.6 - 10.7 10*3/uL [facility] Work Phone: Test Performed by [facility], [address] , [place], [place] [address] [facility] Work Phone: Comprehensive Metabolic Pane vidal 12-23-2019 Albumin [Mass/Vol] 4.4 g/dL 3.5 - 5 g/dL [facility] Work Phone: ALP [Catalytic activity/Vol] 81 U/L 38 - 126 U/L [facility] Work Phone: ALT [Catalytic activity/Vol] 32 U/L 13 - 69 U/L [facility] Work Phone: Anion gap [Moles/Vol] 10 mmol/L [facility] Work Phone: AST [Catalytic activity/Vol] 22 U/L 15 - 46 U/L [facility] Work Phone: Bilirubin Ql (U) 0.3 mg/dL 0.2 - 1.3 mg/dL [facility] Work Phone: Calcium [Mass/Vol] 9.7 mg/dL 8.4 - 10. 4 mg/dL [facility] Work Phone: Chloride [Moles/Vol] 101 mmol/L 98 - 10 7 mmol/L [facility] Work Phone: CO2 [Moles/Vol] 27 mmol/L 22 - 30 mmol/L [facility] Work Phone: Creatinine [Mass/Vol] 0.66 mg/dL 0.52 - 1.25 mg/dL [facility] Work Phone: EGFR IF NonAfrican Colombian >60.0 >60 mL/min [facility] Work Phone: Comment on above: Source- MDRD equatio n with creatinine calibration to IDMS(NKDEP) eGFR not recommended for drug dose adjustment GFR/1.73 sq M predicted among blacks MDRD (S/P/Bld) [Vol rate/Area] mL/min/{1.73_m2} >60 mL/min [facility] Work Phone: Glucose [Mass/Vol] 104 mg/dL High 70 - 100 mg/dL [facility] Work Phone: Potassium [Moles/Vol] 4.0 mmol/L 3.5 - 5.1 mmol/L [facility] Work Phone: Protein [Mass/Vol] 7.2 g/dL 6.3 - 8.2 g/dL [facility] Work Phone: Sodium [Moles/Vol] 138 mmol/L 135 - 145 mmol/L [facility] Work Phone: Urea nitrogen [Mass/Vol] 17 mg/dL 7 - 20 mg/dL [facility] Work Phone: Lipid Panelon 12-23-2019 Cholesterol [Mass/Vol] 264 mg/dL Abnormal <200 [facility] Work Phone: Cholesterol in HDL [Mass/Vol] 63 mg/dL High 40 - 60 mg/dL [facility] Work Phone: Cholesterol in LDL [Mass/Vol] 162 mg/dL Abnormal <100 [facility] Work Phone: Cholesterol.total/Cho lesterol in HDL [Mass ratio] 4 {ratio} [facility] Work Phone: Comment on above: Ref Range: < 3 Low Risk for CHD 3-6 Mod Risk for CHD > 6 High Risk for CHD Triglyceride [Mass/Vol] 193 mg/dL Abnormal <150 [facility] Work Phone: Otheron 12-23-2019 Interpretation and review of laboratory results Abnormal [facility] Work Phone: Test Performed by [facility], [facility] [address] , [place] [phone] [facility] Work Phone: TSH without Reflexon 020 TSH Qn 2.687 u[IU]/mL 0.465 - 4.68 u[IU]/mL [facility] Work Phone: Test Performed by [facility], [address] , [place], [place] [address] [facility] Work Phone: XR ABDOMEN (KUB) (SINGLE AP VIEW)on 12-23-2019 [facility], [facility] Incoming Radiology Results From [facility] - 12/23/2019 10:57 AM EST Patient Name: RAINER SMART ---Diagnostic Radiology--- Exam Date/Time 12/23/2019 09:22:11 EST Exam CR Abdomen AP Ordering Physician MD JAX, LISA Accession Number [id number] CPT4 Codes 66634 () Reason For Exam Upper abdominal pain, unspecified Report Abdomen: 12/23/2019. Clinical Information: Upper abdominal pain. Findings: A single supine view of the abdomen reveals a nonspecific nonobstructive bowel gas pattern. There is a moderate amount of fecal residue throughout the colon. Consider constipation. There is no evidence of organomegaly. No abnormal calcifications are seen. The visualized bony structures are intact. Impression: Non specific radiographs of the abdomen. Consider constipation. Report Dictated on --- Final --- Dictating Physician: MD SUERO RISA Signed Date and Time: 12/23/2019 10:55 am Signed by: MD SUERO RISA Transcribed Date and Time: 12/23/2019 10:56 [facility] Work Phone: Patient Name: RAINER SMART ---Diagnostic Radiology--- Exam Date/Time 12/23/2019 09:22:11 EST Exam CR Abdomen AP Ordering Physician MD JAX, LISA Accession Number [id number] CPT4 Codes 86311 () Reason For Exam Upper abdominal pain, unspecified Report Abdomen: 12/23/2019. Clinical Information: Upper abdominal pain. Findings: A single supine view of the abdomen reveals a nonspecific nonobstructive bowel gas pattern. There is a moderate amount of fecal residue throughout the colon. Consider constipation. There is no evidence of organomegaly. No abnormal calcifications are seen. The visualized bony structures are intact. Impression: Non specific radiographs of the abdomen. Consider constipation. Report Dictated on --- Final --- Dictating Physician: MD SUERO RISA Signed Date and Time: 12/23/2019 10:55 am Signed by: MD SUERO RISA Transcribed Date and Time: 12/23/2019 10:56 [facility] Work Phone: XR Spine Thoracic 3 VWon Patient Name: RAINER SMART ---Diagnostic Radiology--- Exam Date/Time 12/23/2019 09:22:11 EST Exam CR Spine Thoracic 3 Views Ordering Physician MD JAX, LISA Accession Number [id number] CPT4 Codes 08556 () Reason For Exam acute bilateral thoracic back pain Report Thoracic spine: 12/23/2019. Clinical Information: Back pain Findings: AP, swimmer's and lateral views of the thoracic spine reveal the heights of the thoracic vertebral bodies and intervertebral disc spaces to be maintained. No compression deformities or paraspinal soft tissue masses are seen. There is a very slight levoscoliosis. There is minimal spurring at the lower thoracic levels. IMPRESSION: No acute process. Mild degenerative changes with scoliosis. Report Dictated on --- Final --- Dictating Physician: MD SUERO RISA Signed Date and Time: 12/23/2019 10:54 am Signed by: MD SUERO RISA Transcribed Date and Time: 12/23/2019 10:56 [facility] Work Phone: [facility] From [facility] - 12/23/2019 10:56 AM EST Patient Name: RAINER SMART ---Diagnostic Radiology--- Exam Date/Time 12/23/2019 09:22:11 EST Exam CR Spine Thoracic 3 Views Ordering Physician MD JAX, LISA Accession Number [id number] CPT4 Codes 44568 () Reason For Exam acute bilateral thoracic back pain Report Thoracic spine: 12/23/2019. Clinical Information: Back pain Findings: AP, swimmer's and lateral views of the thoracic spine reveal the heights of the thoracic vertebral bodies and intervertebral disc spaces to be maintained. No compression deformities or paraspinal soft tissue masses are seen. There is a very slight levoscoliosis. There is minimal spurring at the lower thoracic levels. IMPRESSION: No acute process. Mild degenerative changes with scoliosis. Report Dictated on --- Final --- Dictating Physician: MD SUERO RISA Signed Date and Time: 12/23/2019 10:54 am Signed by: MD SUERO RISA Transcribed Date and Time: 12/23/2019 10:56 [facility] Work Phone: XR RIBS RIGHT INCLUDE CHEST (MIN 3 VIEWS)on 12-18-2019 Patient Name: RAINER SMART ---Diagnostic Radiology--- Exam Date/Time 12/18/2019 11:29:22 EST Exam CR Ribs w/ PA Chest Right Ordering Physician SHAGGY LILLY Accession Number [id number] CPT4 Codes 60523 () Reason For Exam Right lower anterior lateral Report RIGHT RIB SERIES WITH CHEST X-RAY CLINICAL INDICATION: Pain A PA view of the chest and two plain films of the right rib cage were obtained. COMPARISON: None. FINDINGS: Nondisplaced fracture of the lateral right ninth rib. There is no pneumothorax. No focal areas of consolidation are seen. The heart size is within normal limits. IMPRESSION: Nondisplaced fracture of the lateral right ninth rib. Report Dictated on --- Final --- Dictating Physician: MD BAUER NEIL Signed Date and Time: 12/18/2019 11:40 am Signed by: MD BAUER NEIL Transcribed Date and Time: 12/18/2019 11:41 [facility] Work Phone: [facility], [facility] Incoming Radiology Results From [facility] - 12/18/2019 11:41 AM EST Patient Name: RAINER SMART ---Diagnostic Radiology--- Exam Date/Time 12/18/2019 11:29:22 EST Exam CR Ribs w/ PA Chest Right Ordering Physician SHAGGY LILLY Accession Number [id number] CPT4 Codes 31126 () Reason For Exam Right lower anterior lateral Report RIGHT RIB SERIES WITH CHEST X-RAY CLINICAL INDICATION: Pain A PA view of the chest and two plain films of the right rib cage were obtained. COMPARISON: None. FINDINGS: Nondisplaced fracture of the lateral right ninth rib. There is no pneumothorax. No focal areas of consolidation are seen. The heart size is within normal limits. IMPRESSION: Nondisplaced fracture of the lateral right ninth rib. Report Dictated on --- Final --- Dictating Physician: MD BAUER NEIL Signed Date and Time: 12/18/2019 11:40 am Signed by: MD BAUER NEIL Transcribed Date and Time: 12/18/2019 11:41 [facility] Work Phone: CBC and Differentialon 09-19 Abs Baso 0.04 k/uL Normal <0.11 [facility] Comment on above: Performed By: #### C BCDIF, UA, CMP, LIPB, TSH, T4 #### [facility] Routine Lab [address] [place] [address] Abs [place] 0.70 k/uL Normal <0.87 [facility] Comment on above: Performed By: #### C BCDIF, UA, CMP, LIPB, TSH, T4 #### [facility] [address] [place], [place] [address] Abs Neut 3.34 k/uL Normal 1.45-7.50 [facility] Comment on above: Performed By: #### C BCDIF, UA, CMP, LIPB, TSH, T4 #### [facility] [address] [place], [place] [address] Absolute nRBC <0.01 Normal <0.01 [facility] Comment on above: Performed By: #### C BCDIF, UA, CMP, LIPB, TSH, T4 #### [facility] Lab [address] [place] [address] Basophils/100 WBC (Bld) 0.6 % Normal [facility] Comment on above: Performed By: #### C BCDIF, UA, CMP, LIPB, TSH, T4 #### [facility] [address] [place] [phone] DTYPE ADIFF Normal [facility] Comment on above: Performed By: #### C BCDIF, UA, CMP, LIPB, TSH, T4 #### [facility] [address] [place] [phone] Eosinophils (Bld) [#/Vol] 0.13 10*3/uL Normal <0.46 [facility] Comment on above: Performed By: #### C BCDIF, UA, CMP, LIPB, TSH, T4 #### [facility] Routine Lab [facility] [place] [phone] Eosinophils/100 WBC (Bld) 2.0 % Normal [facility] Comment on above: Performed By: #### C BCDIF, UA, CMP, LIPB, TSH, T4 #### [facility] Routine Lab [address] [place] [phone] Erythrocyte distribution width (RBC) [Ratio] 11.9 % Normal 11.5-15.0 [facility] Comment on above: Performed By: #### C BCDIF, UA, CMP, LIPB, TSH, T4 #### [facility] [address] [place] [phone] Hematocrit (Bld) [Volume fraction] 47.6 % High 36.0-46.0 [facility] Comment on above: Performed By: #### C BCDIF, UA, CMP, LIPB, TSH, T4 #### [facility] Lab [address] [place] [phone] Hemoglobin (Bld) [Mass/Vol] 16.3 g/dL High 11.5-15.5 [facility] Comment on above: Performed By: #### C BCDIF, UA, CMP, LIPB, TSH, T4 #### [facility] [address] [place] [address] Lymphocytes (Bld) [#/Vol] 2.25 10*3/uL Normal 1.00-4.00 [facility] Comment on above: Performed By: #### C BCDIF, UA, CMP, LIPB, TSH, T4 #### [facility] Routine Lab [address] [place] [address] Lymphocytes/100 WBC (Bld) 34.8 % Normal [facility] Comment on above: Performed By: #### C BCDIF, UA, CMP, LIPB, TSH, T4 #### [facility]ine Lab [address] [place] [address] MCH (RBC) [Entitic mass] 34.0 pG Normal 26.0-34.0 [facility] Comment on above: Performed By: #### C BCDIF, UA, CMP, LIPB, TSH, T4 #### [facility] Lab [address] [place] [address] MCHC (RBC) [Mass/Vol] 34.2 g/dL Normal 30.5-36.0 [facility] Comment on above: Performed By: #### C BCDIF, UA, CMP, LIPB, TSH, T4 #### [facility] [address] [place] [address] MCV (RBC) [Entitic vol] 99.2 fL Normal 80.0-100.0 [facility] Comment on above: Performed By: #### C BCDIF, UA, CMP, LIPB, TSH, T4 #### [facility] [address] [place] [address] Monocytes/100 WBC (Bld) 10.8 % Normal [facility] Comment on above: Performed By: #### C BCDIF, UA, CMP, LIPB, TSH, T4 #### [facility] [address] [place], [place] [address] Neutrophils/100 WBC (Bld) 51.8 % Normal [facility] Comment on above: Performed By: #### C BCDIF, UA, CMP, LIPB, TSH, T4 #### [facility] [address] [place], [place] [address] NRBCs 0.0 /100 WBC Normal 0 [facility] Comment on above: Performed By: #### C BCDIF, UA, CMP, LIPB, TSH, T4 #### [facility] [address] [place], [place] [address] Platelet mean volume (Bld) [Entitic vol] 9.3 fL Normal 9.0-12.7 [facility] Comment on above: Performed By: #### C BCDIF, UA, CMP, LIPB, TSH, T4 #### [facility] [address] [place], [place] [address] Platelets (Bld) [#/Vol] 272 10*3/uL Normal 150-400 [facility] Comment on above: Performed By: #### C BCDIF, UA, CMP, LIPB, TSH, T4 #### [facility] [address] [place], [place] [address] RBC (Bld) [#/Vol] 4.80 10*6/uL Normal 3.90-5.[address] [facility] Comment on above: Performed By: #### C BCDIF, UA, CMP, LIPB, TSH, T4 #### [facility] [address] [place], [place] [address] WBC (Bld) [#/Vol] 6.47 10*3/uL Normal 3.70-11.[address] [facility] Comment on above: Performed By: #### C BCDIF, UA, CMP, LIPB, TSH, T4 #### [facility] [address] [place], [place] [phone] Comp Metabolic Panelon 09-19 Albumin [Mass/Vol] 4.4 g/dL Normal 3.9-4.9 [facility] Comment on above: Performed By: #### C BCDIF, UA, CMP, LIPB, TSH, T4 #### [facility] [address] [place], [place] [phone] ALP [Catalytic activity/Vol] 92 U/L Normal 34-123 [facility] Comment on above: Performed By: #### C BCDIF, UA, CMP, LIPB, TSH, T4 #### [facility] [address] [place], [place] [address] ALT [Catalytic activity/Vol] 21 U/L Normal 7-38 [facility] Comment on above: Performed By: #### C BCDIF, UA, CMP, LIPB, TSH, T4 #### [facility] [address] [place], [place] [phone] Anion gap [Moles/Vol] 15 mmol/L Normal 9-18 [facility] Comment on above: Performed By: #### C BCDIF, UA, CMP, LIPB, TSH, T4 #### [facility] [address] [place], [place] [phone] AST [Catalytic activity/Vol] 21 U/L Normal 13-35 [facility] Comment on above: Performed By: #### C BCDIF, UA, CMP, LIPB, TSH, T4 #### [facility] [address] [place], [place] [address] Bilirubin Ql (U) 0.4 mg/dL Normal 0.2-1.3 [facility] Comment on above: Performed By: #### C BCDIF, UA, CMP, LIPB, TSH, T4 #### [facility] [address] [place], [place] [address] Calcium [Mass/Vol] 10.0 mg/dL Normal 8.5-10.2 [facility] Comment on above: Performed By: #### C BCDIF, UA, CMP, LIPB, TSH, T4 #### [facility] [address] [place], [place] [address] Chloride [Moles/Vol] 98 mmol/L Normal 97-105 [facility] Comment on above: Performed By: #### C BCDIF, UA, CMP, LIPB, TSH, T4 #### [facility] [address] [place] [address] CO2 [Moles/Vol] 28 mmol/L Normal 22-30 [facility] Comment on above: Performed By: #### C BCDIF, UA, CMP, LIPB, TSH, T4 #### [facility] [address] [place] [address] Creatinine [Mass/Vol] 0.73 mg/dL Normal 0.58-0.96 [facility] Comment on above: Performed By: #### C BCDIF, UA, CMP, LIPB, TSH, T4 #### [facility] [address] [place], [place] [address] eGFR- Amer. >60 Normal [facility] Comment on above: Performed By: #### C BCDIF, UA, CMP, LIPB, TSH, T4 #### [facility] [address] [place] [phone] GFR/1.73 sq M predicted among non-blacks MDRD (S/P/Bld) [Vol rate/Area] mL/min/{1.73_m2} Normal [facility] Comment on above: Performed By: #### C BCDIF, UA, CMP, LIPB, TSH, T4 #### [facility] Lab [address] [place] [address] Glucose [Mass/Vol] 107 mg/dL High 74-99 [facility] Comment on above: Performed By: #### C BCDIF, UA, CMP, LIPB, TSH, T4 #### [facility] [address] [place], [place] [address] Potassium [Moles/Vol] 3.6 mmol/L Low 3.7-5.1 [facility] Comment on above: Performed By: #### C BCDIF, UA, CMP, LIPB, TSH, T4 #### [facility] [address] [place], [place] [address] Protein [Mass/Vol] 7.4 g/dL Normal 6.3-8.0 [facility] Comment on above: Performed By: #### C BCDIF, UA, CMP, LIPB, TSH, T4 #### [facility] [address] [place] [address] Sodium [Moles/Vol] 141 mmol/L Normal 136-144 [facility] Comment on above: Performed By: #### C BCDIF, UA, CMP, LIPB, TSH, T4 #### [facility] [address] [place], [place] [address] Urea nitrogen [Mass/Vol] 14 mg/dL Normal 7-21 [facility] Comment on above: Performed By: #### C BCDIF, UA, CMP, LIPB, TSH, T4 #### [facility] [address] [place], [place] [address] Lipid Panel, [place] 019 Cholesterol [Mass/Vol] 289 mg/dL High <200 [facility] Comment on above: Performed By: #### C BCDIF, UA, CMP, LIPB, TSH, T4 #### [facility] [address] [place], [place] [address] Cholesterol in HDL [Mass/Vol] 59 mg/dL Normal >39 [facility] Comment on above: Performed By: #### C BCDIF, UA, CMP, LIPB, TSH, T4 #### [facility] [address] [place], [place] [address] Cholesterol in LDL [Mass/Vol] 197 mg/dL High <100 [facility] Comment on above: Performed By: #### C BCDIF, UA, CMP, LIPB, TSH, T4 #### [facility] [address] [place] [address] Cholesterol in VLDL [Mass/Vol] 33 mg/dL High <30 [facility] Comment on above: Performed By: #### C BCDIF, UA, CMP, LIPB, TSH, T4 #### [facility] [address] [place] [address] Cholesterol non HDL [Mass/Vol] 230 mg/dL High <130 [facility] Comment on above: Performed By: #### C BCDIF, UA, CMP, LIPB, TSH, T4 #### [facility] [address] [place] [address] LDL:HDL Ratio 3.34 High <2.54 [facility] Comment on above: Performed By: #### C BCDIF, UA, CMP, LIPB, TSH, T4 #### [facility] [address] [place], [place] [address] TC:HDL Ratio 4.90 Normal <5.10 [facility] Comment on above: Performed By: #### C BCDIF, UA, CMP, LIPB, TSH, T4 #### [facility] Routine Lab [address] [place], [place] [address] Triglyceride [Mass/Vol] 167 mg/dL High <150 [facility] Comment on above: Performed By: #### C BCDIF, UA, CMP, LIPB, TSH, T4 #### [facility] Routine Lab [address] [place] [address] Fasting Time 12 hrs Normal [facility] Comment on above: Performed By: #### C BCDIF, UA, CMP, LIPB, TSH, T4 #### [facility] [address] [place] [address] T4on 09-19-2019 T4 [Mass/Vol] 5.6 ug/dL Normal 5.5-10.2 [facility] Comment on above: Performed By: #### C BCDIF, UA, CMP, LIPB, TSH, T4 #### [facility] Lab [address] [place] [address] TSHon 09-19-2019 TSH Qn 2.750 uU/mL Normal 0.270-4.200 [facility] Comment on above: Performed By: #### C BCDIF, UA, CMP, LIPB, TSH, T4 #### [facility] [address] [place] [address] Urinalysison 09-19-2019 Bilirubin Ql (U) NEGAT Normal Negative [facility] Comment on above: Performed By: #### C BCDIF, UA, CMP, LIPB, TSH, T4 #### [facility] Lab [address] [place] [address] Clarity (U) CLDY Abnormal Clear [facility] Comment on above: Performed By: #### C BCDIF, UA, CMP, LIPB, TSH, T4 #### [facility] Routine Lab [address] [place] [address] Color (U) YEL Normal Yellow [facility] Comment on above: Performed By: #### C BCDIF, UA, CMP, LIPB, TSH, T4 #### [facility] Routine Lab [address] [place] [address] Comments NMIC Normal [facility] Comment on above: Performed By: #### C BCDIF, UA, CMP, LIPB, TSH, T4 #### [facility] Routine Lab [address] [address] Glucose Ql (U) NEGAT Normal Negative [facility] Comment on above: Performed By: #### C BCDIF, UA, CMP, LIPB, TSH, T4 #### [facility] Routine Lab [address] [address] Hemoglobin/Blood,Ur NEGAT Normal Negative [facility] Reference Lab Comment on above: Performed By: #### C BCDIF, UA, CMP, LIPB, TSH, T4 #### [facility] Routine Lab [address] [place] [address] Ketones Ql (U) NEGAT Normal Negative [facility] Lab Comment on above: Performed By: #### C BCDIF, UA, CMP, LIPB, TSH, T4 #### [facility] Routine Lab [address] [place] [address] Leukest NEGAT Normal Negative [facility] Comment on above: Performed By: #### C BCDIF, UA, CMP, LIPB, TSH, T4 #### [facility]ine [facility] [address] [place] [address] Nitrite Ql (U) NEGAT Normal Negative [facility] Comment on above: Performed By: #### C BCDIF, UA, CMP, LIPB, TSH, T4 #### [facility]ine [facility] [address] [place] [address] pH (U) 6.0 [pH] Normal 4.5-8.0 [facility] Comment on above: Performed By: #### C BCDIF, UA, CMP, LIPB, TSH, T4 #### [facility] Routine [facility] [address] [place] [address] Protein (U) [Mass/Vol] NEGAT Normal Negative [facility] Comment on above: Performed By: #### C BCDIF, UA, CMP, LIPB, TSH, T4 #### [facility] Routine Lab [address], [place] [id number] Specific [place], Ur 1.016 Normal 1.005-1.030 [facility] Reference [facility] Comment on above: Performed By: #### C BCDIF, UA, CMP, LIPB, TSH, T4 #### [facility] Routine Lab [address], [place] [id number] Urine Maurisio Comment NAPP Normal [facility] Reference Lab Comment on above: Performed By: #### C BCDIF, UA, CMP, LIPB, TSH, T4 #### [facility] Routine Lab [address], [place] [id number] Urobilinogen Qn (U) NL Normal Normal [facility] Reference [facility] Comment on above: Performed By: #### C BCDIF, UA, CMP, LIPB, TSH, T4 #### [facility] Routine Lab [address], [place] [id number] XR CHEST 2V FRONTAL/LATon XR CHEST 2V FRONTAL/LAT * * *Final Report* * * DATE OF EXAM: Sep 19 2019 9:02AM MDX 5291 - XR CHEST 2V FRONTAL/LAT / PROCEDURE REASON: I10 ESSENTIAL PRIMARY HYPERTENSION * * * * Physician Interpretation * * * * EXAMINATION: CHEST RADIOGRAPH (2 VIEW FRONTAL and LATERAL) CLINICAL HISTORY: MQ: XC2_5 Comparison: 02/18/2017 RESULTS: 1. Lines, Tubes, and Devices: None 2. Lungs and Pleura: The lungs are clear. No infiltrates, noncalcified nodules or pleural effusions are seen. Pulmonary vascularity is unremarkable. 3. Cardiomediastinal silhouette: Heart size is within normal limits. 4. Other: Bony structures unremarkable. 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: YAMILETH Transcribe Date/Time: Sep 19 2019 9:31A Dictated by : ELIOT HUYNH DO This examination was interpreted and the report reviewed and electronically signed by: ELIOT HUYNH DO on Sep 19 2019 9:32AM EST [id number] [facility] CNOVon 12-12-2018 CNOV Office Visit (OTOLMM ) -------- RAINER SMART ([id number]) 1965 F Date Time Provider Department 12/12/18 11:45 AM INGRID CARSON OTOLMM During your visit today, we recorded the following information about you: Ingrid Carson MD 12/12/2018 12:09 PM Signed HPI Rainer Beau Smart is a 53 year old female who presents with chronic bilateral otalgia. Patient states for approximately 10 years she has had pain immediately in both ears. Patient describes this as a burning patient also complains of crackling in her ears as well patient denies any triggering factors. Patient denies any other otologic factors except hearing loss patient denies any throat symptoms or any other complaints patient does complain dryness in her mouth as well as her nose. ROS General Weight loss: No Fatigue: No Night sweats:No Cardiac Chest pain:No Fast heart rate:No Swelling in the feet:No Respiratory Short of breath:No Cough:No Wheezing:No Gastrointestinal Nausea:No Vomiting:No Indigestion:No Past medical history, family history, and social history reviewed. PE There were no vitals taken for this visit. General: Patient is awake, alert, NAD. Voice is normal. Skin: normal Eyes: Extraocular motion and Gaze is normal. Ears: Right external auditory canal is normal. TMJ: Slightly tender bilateral Right tympanic membranes normal. Left external auditory canal is normal. Left tympanic membrane normal. Nose: Septum is normal. Dryness and crusting Turbinates are normal. Nasopharynx:normal Oral Cavity/Oropharynx: Lips normal Dentition normal Tongue normal. Tonsils normal. Palate and uvula normal. Pharynx posterior normal Hypopharynx: Base of tongue normal Pyriform sinus normal. Larynx: Vocal cords normal. Epiglottis normal. Post cricoid normal. Salivary glands: Parotid normal. Submandibular and sublingual normal. Thyroid: normal. Lymphatic/Neck: Lymph nodes normal. Neurologic: Facial nerve normal. ASSESSMENT/PLAN: 1. Hearing loss, unspecified hearing loss type, unspecified laterality - ICD9: 389.9, ICD10: H91.90 (primary diagnosis) - COMPREHENSIVE AUDIOLOGIC EXAM - TYMPANOMETRY 2. Otalgia, bilateral - ICD9: 388.70, ICD10: H92.03 Recommend audiogram tympanogram referral to TMJ expert Ingrid Carson MD Findings will be communicated to the referring physician via mail or electronic medical record. Referring Provider: SELF [[id number]] Allergies As of Date: 12/12/2018 Noted Allergy Reaction CODEINE 02/18/2017 14 - Other: See Comments IODINE 02/18/2017 14 - Other: See Comments PENICILLINS 02/18/2017 14 - Other: See Comments Date Reviewed: 12/12/2018 Reviewed by: Ingrid Carson - Fully Assessed Reason for Visit: Ear Pain [817] Cmt: bilatateral for years. Has been to many doctors. Ears crackle, hurt under them. Constantly Primary Visit Diagnosis:Hearing loss, unspecified hearing loss type, unspecified laterality [H91.90] Other Visit Diagnosis:Otalgia, bilateral [H92.03] Order(s):COMPREHENSIVE AUDIOLOGIC EXAM [[id number]] Order #: [id number] TYMPANOMETRY [[id number]] Order #: [id number] Prescriptions as of 12/12/2018 Sig: CYCLOBENZAPRINE 10 MG TABLET Take 10 mg by mouth once jojo* OMEPRAZOLE 40 MG CAPSULE,JUANY* METOPROLOL SUCCINATE ER 50 MG* Take 50 mg by mouth every mor* LORATADINE 10 MG TABLET take 1 tablet by mouth once d* HYDROCHLOROTHIAZIDE 25 MG TAB* Take 25 mg by mouth every mor* MIRTAZAPINE 15 MG TABLET Take 15 mg by mouth daily at * DULOXETINE 60 MG CAPSULE,JUANY* BENZONATATE 100 MG CAPSULE Take 1 capsule by mouth three* NAPROXEN 500 MG TABLET Take 1 tablet by mouth twice * Medication notes this encounter BENZONATATE 100 MG CAPSULE >> Roxana Smith Ma 12/12/2018 11:47 AM >> ROXANA SMITH MA Dec 12, 2018 11:47 AM Not taking NAPROXEN 500 MG TABLET >> Roxana Smith Ma 12/12/2018 11:47 AM >> ROXANA SMITH MA Dec 12, 2018 11:47 AM Not taking Problem List As Of Date: 12/12/2018 (None) Encounter Status:Closed by INGRID CARSON MD on 12/12/18 Normal [facility] PROGRESSon 12-12-2018 Protein mass conc HNO ID: [id number] Author: Ingrid Carson Service: (none) Author Type: Physician Type: Progress Notes Filed: 12/12/2018 12:09 PM Note Text: HPI Rainer Smart is a 53 year old female who presents with chronic bilateral otalgia. Patient states for approximately 10 years she has had pain immediately in both ears. Patient describes this as a burning patient also complains of crackling in her ears as well patient denies any triggering factors. Patient denies any other otologic factors except hearing loss patient denies any throat symptoms or any other complaints patient does complain dryness in her mouth as well as her nose. ROS General Weight loss: No Fatigue: No Night sweats:No Cardiac Chest pain:No Fast heart rate:No Swelling in the feet:No Respiratory Short of breath:No Cough:No Wheezing:No Gastrointestinal Nausea:No Vomiting:No Indigestion:No Past medical history, family history, and social history reviewed. PE There were no vitals taken for this visit. General: Patient is awake, alert, NAD. Voice is normal. Skin: normal Eyes: Extraocular motion and Gaze is normal. Ears: Right external auditory canal is normal. TMJ: Slightly tender bilateral Right tympanic membranes normal. Left external auditory canal is normal. Left tympanic membrane normal. Nose: Septum is normal. Dryness and crusting Turbinates are normal. Nasopharynx:normal Oral Cavity/Oropharynx: Lips normal Dentition normal Tongue normal. Tonsils normal. Palate and uvula normal. Pharynx posterior normal Hypopharynx: Base of tongue normal Pyriform sinus normal. Larynx: Vocal cords normal. Epiglottis normal. Post cricoid normal. Salivary glands: Parotid normal. Submandibular and sublingual normal. Thyroid: normal. Lymphatic/Neck: Lymph nodes normal. Neurologic: Facial nerve normal. ASSESSMENT/PLAN: 1. Hearing loss, unspecified hearing loss type, unspecified laterality - ICD9: 389.9, ICD10: H91.90 (primary diagnosis) - COMPREHENSIVE AUDIOLOGIC EXAM - TYMPANOMETRY 2. Otalgia, bilateral - ICD9: 388.70, ICD10: H92.03 Recommend audiogram tympanogram referral to TMJ expert Ingrid Carson MD Findings will be communicated to the referring physician via mail or electronic medical record. Normal [facility] Office Visit: GERD for egd & c-scope for hx of polypson 06-24-2017 Fall risk assessment No [facility] Work Phone: Protein mass conc Done [facility] Work Phone: Tobacco smoking status NHIS Never [facility] Work Phone: Tobacco smoking status [facility] Former smoker [facility] Work Phone: Vital Signs Date Time Vital Sign Value Performing Clinician Facility 08-09-2023 09:06-0400 Body temperature 97.4 [degF] [facility] Work Phone: 6(676)351-839446 [address] 08-09-2023 09:06-0400 Diastolic blood pressure 92 mm[Hg] [facility] Work Phone: 3(991)498-322946 [address] 08-09-2023 09:06-0400 Heart rate 71 /min [facility] Work Phone: 3(732)204-631205 [place] [address] 08-09-2023 09:06-0400 Respiratory rate 16 /min [facility] Work Phone: 7(926)226-085005 [place] [address] 08-09-2023 09:06-0400 SaO2% (BldA) [Mass fraction] 100 % [facility] Work Phone: 8(220)147-607505 [place] [address] 08-09-2023 09:06-0400 Systolic blood pressure 155 mm[Hg] [facility] Work Phone: 1(960)923-187105 [place] [address] 08-09-2023 06:54-0400 Body height 157.48 cm [facility] Work Phone: 4(978)986-800505 [place] [address] 08-09-2023 06:54-0400 Body mass index (BMI) [Ratio] 29.1 kg/m2 [facility] Work Phone: 2(068)606-906105 [place] [address] 08-09-2023 06:54-0400 Body weight 72.3 kg [facility] Work Phone: 7(891)290-280705 [place] [address] 07-03-2023 14:16-0400 Body mass index (BMI) [Ratio] 29.4 kg/m2 [facility] Work Phone: 1(838)114-757505 [place] [address] 07-03-2023 14:16-0400 Body weight 73.02 kg [facility] Work Phone: 5(994)825-913205 [place] [address] 07-03-2023 14:16-0400 Diastolic blood pressure 84 mm[Hg] [facility] Work Phone: 2(026)458-765505 [place] [address] 07-03-2023 14:16-0400 Respiratory rate 16 /min [facility] Work Phone: 3(246)808-695605 [place] [address] 07-03-2023 14:16-0400 Systolic blood pressure 123 mm[Hg] [facility] Work Phone: 3(447)823-187505 [place] [address] 06-10-2023 12:00-0400 Body temperature 98.1 [degF] [facility] Work Phone: 4(145)170-091805 [place] [address] 06-10-2023 12:00-0400 Diastolic blood pressure 87 mm[Hg] [facility] Work Phone: 0(695)329-924205 [place] [address] 06-10-2023 12:00-0400 Heart rate 71 /min [facility] Work Phone: 0(993)734-675605 [place] [address] 06-10-2023 12:00-0400 Respiratory rate 18 /min [facility] Work Phone: 0(332)790-928105 [place] [address] 06-10-2023 12:00-0400 SaO2% (BldA) [Mass fraction] 98 % [facility] Work Phone: 7(767)603-353305 [place] [address] 06-10-2023 12:00-0400 Systolic blood pressure 135 mm[Hg] [facility] Work Phone: 8(488)586-569405 [place] [address] 06-08-2023 00:21-0400 Body mass index (BMI) [Ratio] 27.3 kg/m2 [facility] Work Phone: 9(918)245-132205 [place] [address] 06-08-2023 00:21-0400 Body weight 70 kg [facility] Work Phone: [facility] 06-07-2023 23:42-0400 Diastolic blood pressure 88 mm[Hg] [facility] 06-07-2023 23:42-0400 Heart rate 72 /min [facility] 06-07-2023 23:42-0400 SaO2% (BldA) [Mass fraction] 97 % [facility] 06-07-2023 23:42-0400 Systolic blood pressure 150 mm[Hg] [facility] 06-07-2023 21:09-0400 Respiratory rate 17 /min [facility] 06-07-2023 20:38-0400 Body temperature 97.5 [degF] [facility] 06-07-2023 18:21-0400 Body height 160.02 cm [facility] 06-07-2023 18:21-0400 Body mass index (BMI) [Ratio] 27.8 kg/m2 [facility] 06-07-2023 18:21-0400 Body weight 71.25 kg [facility] 04-29-2023 19:23-0400 Heart rate 82 /min Nitesh Mark MD Work Phone: [facility] 04-29-2023 19:23-0400 Respiratory rate 16 /min Nitesh Mark MD Work Phone: [facility] 04-29-2023 19:03-0400 Body height 157.5 cm Nitesh Mark MD Work Phone: [facility] 04-29-2023 19:03-0400 Body mass index (BMI) [Ratio] 29.26 kg/m2 Nitesh Mark MD Work Phone: [facility] 04-29-2023 19:03-0400 Body temperature 98.49 [degF] Nitesh Mark MD Work Phone: [facility] 04-29-2023 19:03-0400 Body weight 72.58 kg Nitesh Mark MD Work Phone: [facility] 04-29-2023 19:03-0400 Diastolic blood pressure 105 mm[Hg] Nitesh Mark MD Work Phone: [facility] [employer] 04-29-2023 19:03-0400 SaO2% (BldA) [Mass fraction] 99 % Nitesh Mark MD Work Phone: [facility] [employer] 04-29-2023 19:03-0400 Systolic blood pressure 159 mm[Hg] Nitesh Mark MD Work Phone: [facility] [employer] 06-13-2020 11:35-0400 BP Diastolic 96 mm[Hg] [facility] [place] 06-13-2020 11:35-0400 BP Systolic 162 mm[Hg] [facility] [employer] [place] 06-13-2020 10:21-0400 Body Temperature 98.2 [degF] [facility] [place] 06-13-2020 10:21-0400 Pulse (Heart Rate) 80 /min [facility] [place] 06-13-2020 10:21-0400 Pulse Oximetry 98 % [facility] [place] 06-13-2020 10:21-0400 Respiratory Rate 18 /min [facility] [employer] [place] 02-18-2020 09:48-0400 BP Diastolic 79 mm[Hg] [facility] [place] 02-18-2020 09:48-0400 BP Systolic 146 mm[Hg] [facility] [place] 02-18-2020 09:48-0400 Pulse (Heart Rate) 79 /min [facility] [place] 02-18-2020 08:40-0400 BMI (Body Mass Index) 25.51 kg/m2 [facility] [place] 02-18-2020 08:40-0400 Body Temperature 98.1 [degF] [facility] [employer] [place] 02-18-2020 08:40-0400 Body weight 65.32 kg [facility] [place] 02-18-2020 08:40-0400 Height 160 cm [facility] [place] 02-18-2020 08:40-0400 Pulse Oximetry 99 % Luciano Johnson [facility] , [place] 02-18-2020 08:40-0400 Respiratory Rate 14 /min Luciano Johnson [facility] [place] 12-18-2019 12:23-0500 BP Diastolic 79 mm[Hg] Shaggy [employer] Work Phone: 12-18-2019 12:23-0500 BP Systolic 118 mm[Hg] [facility] [employer] Work Phone: 12-18-2019 12:23-0500 Pulse (Heart Rate) 68 /min Shaggy Pierce [facility] Work Phone: 12-18-2019 12:23-0500 Pulse Oximetry 98 % Shaggy [employer] Work Phone: 12-18-2019 12:23-0500 Respiratory Rate 4 /min Shaggy Pierce [facility] Work Phone: 12-18-2019 10:51-0500 Body Temperature 98.2 [degF] Shaggy Pierce [facility] Work Phone: 10-06-2019 16:47-0500 BP Diastolic 88 mm[Hg] [facility], [place] 10-06-2019 16:47-0500 BP Systolic 148 mm[Hg] [facility], [place] 10-06-2019 16:47-0500 Pulse (Heart Rate) 74 /min [facility], [place] 10-06-2019 16:47-0500 Pulse Oximetry 100 % [facility], [place] 10-06-2019 16:47-0500 Respiratory Rate 16 /min [facility], [place] 10-06-2019 15:53-0500 Body Temperature 98.1 [degF] [facility], [place] 06-24-2017 15:53-0400 BMI (Body Mass Index) 28.87 kg/m2 [facility] Work Phone: 06-24-2017 15:53-0400 BP Diastolic 86 mm[Hg] [facility] Work Phone: 06-24-2017 15:53-0400 BP Systolic 129 mm[Hg] [facility] Work Phone: 06-24-2017 15:53-0400 Height 160.02 cm Melida [facility] Work Phone: 06-24-2017 15:53-0400 Pulse (Heart Rate) 65 /[facility] Work Phone: 06-24-2017 15:53-0400 Respiratory Rate 18 /min [facility] Work Phone: 06-24-2017 15:53-0400 Weight 73.94 [facility] Work Phone: Encounters Encounter Date Encounter Type Care Provider Facility Start: 04-03-2024 ambulatory [facility] Fa cility:[facility] Start: 03-12-2024 ambulatory [facility] Fa [facility] Start: 08-09-20[facility] Start: 08-09-2023 End: 08-09-2023 ambulatory [facility] Facility:[facility] Start: 08-09-2023 Non-patient / Non-visit [facility] Work Phone: [facility] Start: 08-09-2023 End: 08-09-2023 Admission to same day surgery center [facility] Work Phone: [facility] Work Phone: Start: 08-09-2023 End: 08-09-2023 ambulatory [facility] Work Phone: [facility] Work Phone: Start: 07-03-2023 End: 07-03-2023 ambulatory [facility] Facility:[facility] Start: 07-03-2023 End: 07-03-2023 Patient encounter procedure [facility] Work Phone: [facility] Work Phone: Start: 06-10-2023 Non-patient / Non-visit [facility] Work Phone: [facility] Work Phone: Start: 06-09-2023 Non-patient / Non-visit [facility] Work Phone: [facility] Work Phone: Start: 06-08-2023 Non-patient / Non-visit [facility] Work Phone: [facility] Work Phone: Start: 06-07-2023 ambulatory [facility] Facility :[facility] Start: 06-07-2023 End: 06-10-2023 Evaluation and management of inpatient [facility] Facility:[facility] Start: 06-07-2023 End: 06-10-2023 Evaluation and management of inpatient [facility] Work Phone: Start: 04-29-2023 End: 04-29-2023 Emergency department patient visit Nitesh Mark MD Work Phone: [facility] ED Comment on above: Tooth decay (Primary Dx) Start: 04-23-2023 ambulatory [facility] Facility:[facility] Start: 03-12-2023 End: 03-12-2023 ambulatory [facility] Work Phone: Start: 03-12-2023 End: 03-12-2023 Patient encounter procedure [facility] Start: 01-11-2023 ambulatory Lori Brand RN [facility] C linical Communication Start: 01-11-2023 [facility] Start: 01-09-2023 Telephone encounter Lisa powell MD Work Phone: [facility] Start: 07-06-2021 End: 07-06-2021 Subsequent hospital visit by physician Sumit Morelos MD Work Phone: [facility] Radiology Start: 05-24-2021 End: 05-24-2021 Subsequent hospital visit by physician Kirsty Liang DIRECTOR OF CASEWORK SERVICES - FLEET OPERATIONS MANAGER Work Phone: [facility] MRI Comment on above: Cervical myelopathy (HCC); Ataxia Start: 05-19-2021 End: 05-19-2021 Subsequent hospital visit by physician Reilly Peters MD Work Phone: [facility] Start: 05-16-2021 End: 05-16-2021 Subsequent hospital visit by physician Reilly Peters MD Work Phone: [facility] Start: 05-11-2021 End: 05-11-2021 Subsequent hospital visit by physician Reilly Peters MD Work Phone: [facility] Start: 05-08-2021 End: 05-08-2021 Subsequent hospital visit by physician Reilly Peters MD Work Phone: [facility] Start: 05-04-2021 End: 05-04-2021 Subsequent hospital visit by physician Reilly Petesr MD Work Phone: [facility] Start: 05-01-2021 End: 05-01-2021 Subsequent hospital visit by physician Reilly Peters MD Work Phone: [facility] Start: 04-28-2021 End: 04-28-2021 Subsequent hospital visit by physician Reilly Peters MD Work Phone: [facility] Start: 04-26-2021 End: 04-26-2021 Subsequent hospital visit by physician Reilly Peters MD Work Phone: [facility] Start: 04-20-2021 End: 04-20-2021 Subsequent hospital visit by physician Reilly Peters MD Work Phone: [facility] Start: 2021 End: 2021 Subsequent hospital visit by physician Kirsty Liang DIRECTOR OF CASEWORK SERVICES - FLEET OPERATIONS MANAGER [facility] Start: 06-13-2020 End: 06-13-2020 Emergency department patient visit Lenny Duran Work Phone: [facility] ED Comment on above: Anxiety (Primary Dx) ; Depression, unspecified depression type; Alcohol use disorder, moderate, in controlled environment (HCC); Gastroesophageal reflux disease without esophagitis Start: 02-18-2020 End: 02-18-2020 Emergency department patient visit Luciano Johnson Work Phone: [facility] ED Comment on above: Acute gastritis with out hemorrhage, unspecified gastritis type (Primary Dx) Start: 12-23-2019 End: 12-23-2019 Subsequent hospital visit by physician [facility] Comment on above: Acute bilateral thor acic back pain; Pain of upper abdomen Start: 12-18-2019 End: 12-18-2019 Emergency department patient visit Shaggy Pierce Work Phone: [facility] ED Comment on above: Closed fracture of o ne rib of right side, initial encounter (Primary Dx) Start: 10-06-2019 End: 10-06-2019 Emergency department patient visit Bhupinder Grullon Work Phone: [facility] ED Comment on above: Laceration of left t humb without foreign body without damage to nail, sequela (Primary Dx) Start: 12-12-2018 End: 12-12-2018 Patient encounter procedure INGRID CARSON [facility] Vasquez Procedures Date Procedure Procedure Detail Performing Clinician Start: 08-09-2023 Colonoscopy [facility] Work Phone: Start: 03-12-2023 Plain X-ray of shoulder Start: 03-12-2023 Plain X-ray of clavicle Start: 07-06-2021 Radex spine lumbscrl compl w/bending views min 6 Sumit Morelos MD Work Phone: Start: 05-24-2021 Mri spinal canal cer vical w/o contrast matrl Kirsty Liang DIRECTOR OF CASEWORK SERVICES - FLEET OPERATIONS MANAGER Work Phone: Start: 12-19-2020 Lipid 1996 panel - S saurabh or Plasma Lisa Johnson MD Work Phone: Start: 02-18-2020 Assay of lipase Luciano fitzpatrick Work Phone: Start: 02-18-2020 Blood count complete auto&auto difrntl wbc Luciano Johnson Work Phone: Start: 02-18-2020 Comprehensive metabo lic panel Luciano Johnson Work Phone: Start: 12-23-2019 Radex spine thoracic 3 views Lisa Johnson Work Phone: Start: 12-23-2019 Radiologic exam abdo men 1 view Lisa Johnson Work Phone: Start: 12-23-2019 Assay of thyroid stimulating hormone tsh Lisa Johnson Work Phone: Start: 12-23-2019 Blood count complete auto&auto difrntl wbc Lisa Johnson Work Phone: Start: 12-23-2019 Comprehensive metabo lic panel Lisa Johnson Work Phone: Start: 12-23-2019 Lipid panel Lisa powell Work Phone: Start: 12-18-2019 Radex ribs uni w/pos teroant ch minimum 3 views Shaggy Almeida Kari Work Phone: Start: 06-24-2017 End: 06-24-2017 Dietary management education, guidance, and counseling Melida Arnold Plan of Treatment Date Care Activity Detail Author Start: 12-19-2025 Lipid [address] [facility] Start: 03-18-2024 Lipid screen Lipid screen [facility] [place] [place] Start: 08-09-2023 Patient discharge [facility] Start: 06-10-2023 Patient discharge [facility] Start: 06-08-2023 Following clinical pathway protocol [facility] Start: 06-08-2023 Admission procedure [facility] Start: 06-08-2023 CBC W Auto Differential panel - Blood [facility] Start: 06-08-2023 Treponema sp Ab [Presence] in Serum [facility] Start: 06-07-2023 End: 06-08-2023 [facility] Start: 06-08-2023 Verification routine [facility] Start: 06-07-2023 Assessment of risk of venous thromboembolism [facility] Start: 06-07-2023 Fall prevention [facility] Start: 06-07-2023 Inhalation therapy procedure [facility] Start: 06-07-2023 Introduction of urinary catheter [facility] Start: 06-07-2023 Notification of physician [facility] Start: 06-07-2023 Oxygen therapy [facility] Start: 06-07-2023 Provision of activity privileges [facility] Start: 06-07-2023 Referral to service [facility] Start: 06-07-2023 Vital signs measurements [facility] Start: 06-07-2023 Admission procedure [facility] Start: 01-21-2023 End: 01-21-2023 Patient encounter procedure 01/21/2023 Office Visit Family Medicine Eliseo Jiame MD [address] [place] [address], [facility] [place], [place] [id number] [facility] Start: 03-10-2022 Creatinine measurement Creatinine monitoring [facility] Work Phone: Start: 03-10-2022 Potassium monitoring Potassium monitoring [facility] Work Phone: Start: 09-05-2021 COVID-19 Vaccine (3 - Booster for Moderna series) COVID-19 Vaccine (3 - Booster for Moderna series) [facility] Start: 08-21-2021 End: 08-21-2021 Patient encounter procedure 08/21/2021 Appointment Neurology [facility] Start: 08-15-2021 End: 08-15-2021 Patient encounter procedure 08/15/2021 Office Visit Neurology Kalpana More APRN - CUSTOMER STRATEGY MANAGER [address] [place] [address] [phone] [facility] Neurology [facility] Start: 07-12-2021 Influenza vaccination [facility] Work Phone: Start: 07-10-2021 COVID-19 Vaccine (2 - Moderna 2-dose series) COVID-19 Vaccine (2 - Moderna 2-dose series) [facility] Work Phone: Start: 05-26-2021 End: 05-26-2021 Patient encounter procedure 05/26/2021 Office Visit Orthopedic Surgery Reilly Peters MD [address] [facility] [address] [place], [place] [address] [facility] Orthopedics [facility] [place] Start: 05-24-2021 Subsequent hospital visit by physician 05/24/2021 Hospital Encounter MRI Kirsty Liang, DIRECTOR OF CASEWORK SERVICES - FLEET OPERATIONS MANAGER [address] [place], [place] [id number] [facility] Start: 04-12-2021 End: 04-12-2021 Patient encounter procedure 04/12/2021 Office Visit Orthopedic Surgery Reilly Peters MD [address] [facility] [place], [place] [address] [facility] [place] Start: 02-17-2021 Creatinine measurement Creatinine monitoring [facility] [place] Start: 02-17-2021 Potassium monitoring Potassium monitoring [facility], [place] Start: 12-23-2020 Creatinine monitoring Creatinine monitoring [facility] Work Phone: Start: 12-23-2020 Lipid panel Lipid screen [facility], [place] Start: 12-23-2020 Lipid screen Lipid screen [facility] Work Phone: Start: 12-23-2020 Potassium monitoring Potassium monitoring [facility] Work Phone: Start: 07-12-2020 Influenza vaccination [facility], [place] Start: 03-18-2020 Creatinine monitoring Creatinine monitoring [facility] , [place] Start: 03-18-2020 Potassium monitoring Potassium monitoring [facility], [place] Start: 02-23-2020 End: 02-23-2020 Appointment JUAN MIGUEL [place] Start: 01-04-2020 End: 01-04-2020 Office Visit 01/04/2020 Office Visit Family Medicine Lisa Johnson MD [address] [place] [phone] [facility] Start: 07-12-2019 Influenza vaccination Flu vaccine (#1) [place], [place] Start: 07-29-2017 End: 07-29-2017 Appointment Appointment [facility] [employer] Work Phone: Start: 06-24-2017 End: 06-24-2017 Colonoscopy flx dx w/collj spec when pfrmd Colonoscopy [facility] Work Phone: Start: 06-24-2017 End: 06-24-2017 Esophagogastroduodenoscopy transoral diagnostic Upper gastrointestinal endoscopy [facility] [employer] Work Phone: Start: 2013 Breast cancer screen Breast cancer screen [place], [place] Start: 2013 Colon cancer screen colonoscopy Colon cancer screen colonoscopy [place], [place] Start: 2013 Screening for malignant neoplasm of breast Breast cancer screen [place] Start: 2013 Screening for malignant neoplasm of colon Colon cancer screen colonoscopy [place] Start: 2013 Shingles Vaccine (1 of 2) Shingles Vaccine (1 of 2) [place] Start: 2013 Zoster Vaccines (1 of 2) Zoster Vaccines (1 of 2) [facility] Start: 09-23-2011 Screening for malignant neoplasm of colon Colon cancer screen colonoscopy [facility] Work Phone: Start: 2003 Diabetes screen Diabetes screen [facility] Work Phone: Start: 2003 Screening for malignant neoplasm of breast Mammogram [facility] Start: 1993 Screening for malignant neoplasm of cervix [facility] Start: 1984 Cervical cancer screen Cervical cancer screen [place], [place] Start: 1984 Screening for malignant neoplasm of cervix [facility] Start: 1982 DTaP/Tdap/Td vaccine (1 - Tdap) DTaP/Tdap/Td vaccine (1 - Tdap) [place] Start: 1982 DTaP/Tdap/Td Vaccines (1 - Tdap) DTaP/Tdap/Td Vaccines (1 - Tdap) [facility] Start: 1982 Hepatitis A Vaccines (1 of 2 - Risk 2-dose series) Hepatitis A Vaccines (1 of 2 - Risk 2-dose series) [facility] Start: 1981 Diabetes mellitus screening Diabetes Screening [facility] Start: 1981 Hepatitis C screening Hepatitis C Screening [facility] Start: 1975 COVID-19 Vaccine (1) COVID-19 Vaccine (1) [facility] Work Phone: Start: 1975 Depresssion Monitoring Depresssion Monitoring [facility] Start: 1974 DTaP/Tdap/Td vaccine (1 - Tdap) DTaP/Tdap/Td vaccine (1 - Tdap) [place] Start: 1969 Pneumococcal 0-64 years Vaccine (1 of 1 - PPSV23) Pneumococcal 0-64 years Vaccine (1 of 1 - PPSV23) [place] Start: 1969 Pneumococcal 0-64 years Vaccine (1 of 2 - PPSV23) Pneumococcal 0-64 years Vaccine (1 of 2 - PPSV23) [facility] Work Phone: Start: 1969 Pneumococcal Vaccine: Pediatrics (0 to 5 Years) and At-Risk Patients (6 to 64 Years) (1 - PCV) Pneumococcal Vaccine: Pediatrics (0 to 5 Years) and At-Risk Patients (6 to 64 Years) (1 - PCV) [facility] Start: 1964 Hepatitis A Vaccines (1 of 2 - Risk 2-dose series) Hepatitis A Vaccines (1 of 2 - Risk 2-dose series) [facility] Start: 1964 MMR Vaccines (1 of 1 - Standard series) MMR Vaccines (1 of 1 - Standard series) [facility] Start: 1963 Hepatitis B Vaccines (1 of 3 - 3-dose series) Hepatitis B Vaccines (1 of 3 - 3-dose series) [facility] Start: 1963 HIV screening HIV Screening [facility] Start: 1963 Screening for malignant neoplasm of colon [facility] Colonoscopy [facility] Patient referral [facility] Work Phone: End: 2021 XR CERVICAL SPINE (4-5 VIEWS) XR CERVICAL SPINE (4-5 VIEWS) Imaging Routine Once for 1 Occurrences starting 2021 until 2021 [facility] Work Phone: Comment on above: Once for 1 Occurrences starting 03/22/20 21 until 2021 XR CERVICAL SPINE (4-5 VIEWS) XR CERVICAL SPINE (4-5 VIEWS) Imaging Routine 2021 3:03 PM EDT [facility] Work Phone: [facility] Immunizations Immunization Date Immunization Notes Care Provider [facility] 09-07-2022 influenza, seasonal, injectable Lisa Johnson MD Work Phone: [facility] [employer] 07-11-2021 Moderna SARS-CoV-2 Vaccination Lisa Johnson MD Work Phone: [facility] 06-12-2021 COVID-19, Moderna, P F, 100mcg/0.5mL Sumit Morelos MD Work Phone: [facility] Payers Date Payer Category Payer Unknown 03-13-2023 Self-pay [id number] 03-11-2023 Medicaid [facility] [id number] 03/11/2023-Present [phone] [address] [place] [address] Medicaid HMO [id number] 03-11-2023 Unknown [id number] 02-09-2023 Unknown [id number] 11-11-2018 Unknown [employer] [facility] MEDICAID xxxxxxxxxxx 2018-Present [phone] CLAIMS DEPARTMENT [address] [place] [address] xxxxxxxxxxx [id number] 11-11-2018 Unknown BCBS [place] - [place] P PO xxxxxxxxxxxx 2018-Present [address] [place] [address] xxxxxxxxxxxx [id number] 11-11-2018 Unknown BC[place] P PO [id number] 11/11/2018-Present [address] [place] [address] [id number] 11-11-2018 Unknown BC[place] - [place] P PO [id number] 11/11/2018-Present [address] [place] [address] [id number] 01-10-2016 Unknown [employer] [id number] [place] [id number] Unknown [id number] Unknown [id number] Unknown [id number] Unknown [id number] Unknown [id number] Unknown [id number] Unknown [id number] Unknown [id number] Unknown [id number] Unknown [id number] Unknown [id number] Social History Date Type Detail Facility Start: 10-06-2019 End: 07-03-2021 Tobacco smoking status NHIS Current every day smoker [place], [place] Start: 10-06-2019 End: 04-29-2023 Cigarettes smoked current (pack per day) - Reported [place] Start: 10-06-2019 End: 02-13-2022 Alcohol intake Current drinker of alcohol (finding) [place] Start: 03-16-2019 History SDOH Alcohol Frequency 3 [place] Start: 03-16-2019 History SDOH Alcohol Std Drinks 1 [place] Start: 03-16-2019 Alcohol Comment drinks maybe 1 -2 on the weekend [place] Start: 1965 Sex Assigned At Not on file M [place] Start: 12-18-2019 End: 02-18-2020 Tobacco smoking status NHIS Former smoker [facility] Work Phone: Start: 12-18-2019 Tobacco Comment Quit 3 weeks a go 12/18/2019 Going Work Phone: Exposure to SARS-CoV -2 (event) Unable to assess [place] Start: 06-13-2020 End: 07-03-2021 Tobacco use and exposure Never used [place] Start: 06-13-2020 Alcohol Comment 2-3 shots of w hiskey daily [place] Start: 01-11-2023 End: 04-29-2023 Exposure to SARS-CoV-2 (event) Not sure [place] Start: 2021 Tobacco Comment down to 2 ciga rettes a day [facility] Work Phone: Start: 07-03-2021 Alcohol Comment once a month [facility] Work Phone: Start: 01-01-2022 End: 08-09-2023 Tobacco smoking status NHIS Unknown if ever smoked [facility] Start: 1965 Sex Assigned At Female W [facility] History of tobacco use Cigarette Smoker [facility] Start: 04-29-2023 Tobacco use panel [facility] Start: 04-29-2023 Alcohol Comment trying to stop [facility] Goals Date Patient Goal Desired Activity /State Functional Status Date Assessment Result Facility 06-10-2023 Functional status Ambulates [facility] Work Phone: Mental Status Date Assessment Result Facility 08-09-2023 Cognitive function Voice/Name [facility] Work Phone: 06-10-2023 Cognitive function Voice/Name [facility] Work Phone: 06-09-2023 Cognitive function Appropriate;Cooperativ e [facility] Work Phone: Clinical Notes 01-09-2023 to 08-09-2023 Note Date & Type Note Facility 08-09-2023 Note [facility] Medical Records Department [address] [place] [address] History Physical Exam 08/09/23 0748 MR#: [id number] Acct: [id number] Name: RAINER SMART Rep #: [id number] : 1965 58 From: Scarlett Cross MD [facility] Location: [place] [address]- HPI - General General Date of Service: 08/09/23 HPI Narrative RAINER SMART, is a 58 F who presents for EGD and colonoscopy due to epigastric pain/reflux. Patient has a history of tubular adenomas from previous colonoscopy in 2017 as well. Patient states her symptoms have resolved after being on the Carafate for about 2 weeks along with the pantoprazole. Patient is currently still on the PPI 07/03/23 office visit HPI HPI: 58-year-old female presents for an EGD and colonoscopy. Patient had previous EGD 08/2017 had 4 tubular adenomas that time also had an EGD at that time. Patient recently started detox program for alcohol about 3 weeks ago. Patient has bowel movements about every other day does have some issues with constipation she does take a herbal digestive pill no other laxatives. Patient denies any blood in her stool. Patient does think she drinks enough water throughout the day unsure about fiber. Patient was just started on pantoprazole last week still having some epigastric pain states that all day denies any nausea but states that due to her previous alcoholism she is irritated her stomach a lot in the past. Patient states that pop can make the epigastric pain worse. [facility] Medical History (Updated 08/09/23 @ 07:[address] Scarlett Cross MD) Alcohol abuse Alcohol abuse with physiological dependence Anxiety and depression Anxiety with depression GERD (gastroesophageal reflux disease) High cholesterol History of gastroesophageal reflux (GERD) Hyperlipidemia Hypertension Injury of back Marijuana use MRSA infection Overweight PTSD (post-traumatic stress disorder) Smoker Tobacco use Vocal cord disease Wears dentures Wears glasses Home Medications duloxetine 30 mg capsule,delayed release 60 mg PO DAILY 08/12/17 [History Last Taken Unknown] clonidine HCl 0.1 mg tablet 0.1 mg PO BID PRN anxiety 06/07/23 [History Last Taken Unknown] lisinopril 5 mg tablet 5 mg PO DAILY 06/07/23 [History Last Taken Unknown] multivitamin-iron 9 mg-folic acid 400 mcg-calcium and minerals tablet (High Potency Multivitamin (w- iron)) 1 tab PO BREAKFAST #0 tabs 06/10/23 [Rx Last Taken Unknown] amitriptyline 50 mg tablet 75 mg PO QHS 07/03/23 [History Last Taken Unknown] cyclobenzaprine 5 mg tablet 5 mg PO DAILY 07/03/23 [History Last Taken Unknown] pantoprazole 40 mg tablet,delayed release 40 mg PO BID 07/03/23 [History Last Taken Unknown] sucralfate 1 gram tablet 1 g PO QACHS #56 tabs 07/04/23 [Rx Last Taken Unknown] Allergy/AdvReac Type Severity Reaction Status Date / Time codeine AdvReac very hard Verified 08/08/23 08:46 to awaken Iodine and Iodide Containing AdvReac Hives Verified 08/08/23 08:46 Produc Penicillins AdvReac Rash Verified 08/08/23 08:46 Family History Mother CVA (cerebral vascular accident) Hypertension Heart disease Diabetes Father Alcoholism Sister Cancer pancreatic Surgical History H/O rectal polypectomy History of oral surgery S/P foot surgery, right Social History household members: none Smoking Status: Current every day smoker tobacco type: cigarettes alcohol intake: current alcohol intake frequency: 3 or more drinks per day details: Several crown drinks daily. substance use type: marijuana Past Medical/Surgical History Planned Operation Planned Operative Procedure/s: EGD, CSCOPE S.O.S: No Previous Hospitalizations/Surgeries HX Hospitalizations: Yes (ALCOHOL DETOX-06/2023) HX of Surgeries: vocal scraping, wlisdom teeth, toe surgery Any Problems With Anesthesia: No You/Your Family Experience Fever (Hyperthermia) With Anes: No Cholinesterase deficiency: No Cardiovascular Hx Chest Pain within Last 2 months: No Hx of Irregular Heartbeat and/or Afib: No Hx Heart Attack: No Hx Congestive Heart Failure: No Hx Rheumatic Fever: No Hx Hypertension: Yes (CONTROLLED WITH MED) Hx Internal Defibrillator: No Hx Pacemaker: No Hx Cardiac Catheterization: No Hx Cardiac Surgery/Stents/Etc.: No Hx Stress Test: No Hx Pain in Legs when Walking/Leg Cramps: No Respiratory Chronic Cough: No HX of Shortness of Breath: No Hoarseness: No Hx Chronic Obstructive Pulmonary Disease (COPD): No Hx Asthma: Yes Hx Emphysema: No Hx Sleep Apnea: No Hx Respiratory Tract Infection/Cold (presently): No Do You Snore Loudly (louder than talking or can be heard): No Do You Often Feel Tired/ Fatigued/ S (more content not included)... [facility] 08-09-2023 Procedure note [facility] 08-09-2023 Procedure note [facility] 08-09-2023 Procedure note [facility] 08-09-2023 Procedure note [facility] 06-10-2023 Note [facility] Medical Records Department [address] [place] [address] Discharge Summary 06/10/23 1118 MR#: [id number] Acct: [id number] Name: RAINER SMART Rep #: [id number] : 1965 58 From: Kishan Vizcarra DO PCP: [facility] Status:ADM IN [id number] Providers Date of Admission: 06/07/23 Primary Care Physician: [facility] Reason For Visit: ETOH ABUSE/WITHDRAWL Diagnosis Discharge Diagnosis (1) Alcohol withdrawal: Status: Acute Code(s): F10.939 - Alcohol use, unspecified with withdrawal, unspecified Qualifiers: Complication of substance-induced condition: uncomplicated Qualified Code(s): F10.930 - Alcohol use, unspecified with withdrawal, uncomplicated Plan: Doing well. No medical necessity to stay. [facility]. Pt expresses interest in receiving Vivitrol. That will need to be arranged as outpt. She endorses that she drinks to cope with the deaths of her sisters from ODs. She herself does not use narcotics. Plan Chronic conditions: * Depression with anxiety??? Did continue patient home medication * Hypertension- Blood pressure controlled, home medications continued with dose adjustment as needed * Dyslipidemia-Patient is on statin therapy, continued at home dose * Tobacco dependence * GERD On PPI DVT prophylaxis ??? Did encourage early ambulation Medications at Discharge Home Medications duloxetine 30 mg capsule,delayed release 60 mg PO DAILY 08/12/17 omeprazole 40 mg capsule,delayed release 40 mg PO DAILY #30 caps 12/24/17 hydroxyzine HCl 25 mg tablet 25 mg PO BID 01/01/22 ondansetron 4 mg disintegrating tablet 4 mg PO Q8H PRN nausea and vomiting #14 tabs 01/01/22 amitriptyline 50 mg tablet 50 mg PO QHS 06/07/23 atorvastatin 10 mg tablet 10 mg PO QHS 06/07/23 clonidine HCl 0.1 mg tablet 0.1 mg PO BID PRN anxiety 06/07/23 lisinopril 5 mg tablet 5 mg PO DAILY 06/07/23 multivitamin-iron 9 mg-folic acid 400 mcg-calcium and minerals tablet (High Potency Multivitamin (w- iron)) 1 tab PO BREAKFAST #0 tabs 07/31/23 Hospital Course Operations None Procedures None Summary of Care Provided Minutes Spent on Discharge: 32 Weight / BMI Weight Weight: 70 kg Body Mass Index (BMI) 27.3 ABG / Lab / Microbiology Data 06/07/23 19:40 06/07/23 19:40 D/C Instructions Discharge Diet: No restrictions Meaningful Use Info Meaningful Use Diagnoses (Choose all that apply): None applicable Discharge Plan Admission Admit Date/Time: 06/07/23 19:41 Primary Reason for Your Visit: alcohol withdrawal. Attending Provider: Kishan Vizcarra [facility] Providers: Jennifer Jeffries; Greg Crawford Instructions Additional Instructions / Restrictions: Follow up with [facility] outpatient program. Discharge Orders/Prescriptions Prescriptions: New High Potency Multivit (w-iron) 9 mg iron-400 mcg Tablet 1 tab PO BREAKFAST Qty: 0 0RF Continued duloxetine 30 MG capsule 60 mg PO DAILY hydroxyzine HCl 25 mg tablet 25 mg PO BID Patient Comments: take 1 tablet by mouth twice a day ondansetron 4 mg tablet,disintegrating 4 mg PO Q8H PRN (Reason: nausea and vomiting) Qty: 14 0RF Hold Instructions: Pt has been DC'd amitriptyline 50 mg tablet 50 mg PO QHS Patient Comments: take 1 tablet by mouth nightly atorvastatin 10 mg tablet 10 mg PO QHS Patient Comments: take 1 tablet by mouth at bedtime clonidine HCl 0.1 mg tablet 0.1 mg PO BID PRN (Reason: anxiety) Patient Comments: take 1 tablet by mouth twice a day if needed for anxiety lisinopril 5 mg tablet 5 mg PO DAILY Patient Comments: take 1 tablet by mouth once daily omeprazole 40 MG capsule 40 mg PO DAILY Qty: 30 1RF Discontinued metoprolol succinate 50 mg tablet extended release 24 hr 50 mg PO DAILY Hold Instructions: Pt has been DC'd Patient Comments: take 1 tablet by mouth every morning gabapentin 100 mg capsule 1,200 mg PO DAILY Hold Instructions: Pt has been DC'd famotidine [Pepcid] 20 mg tablet 20 mg PO DAILY PRN (Reason: acid reflux) Qty: 14 0RF Hold Instructions: Pt has been DC'd [facility] 2 Weeks Disposition Disposition (needs filled in before D/C Order can be placed): Home, Self Care Charges/Coding Visit Charges Inpatient E M: 88253 Disch Hosp >30min 06/10/23 1119 Cosigner Signature (if applicable): CC: Dr. Kishan Vizcarra DO; [facility] Signed [facility] 06-07-2023 History and physi kera note Note Date/Time June 07, 2023 7:43pm [facility] Medical Records Department [address] [place] [address] H&P Exam - Hospitalist 06/07/231938 MR#: [id number] Acct: [id number] Name: RAINER SMART Rep #:[id number] : 1965 58 From: Jennifer Jeffries MD PCP: [facility] atus:ADM [place] Location: [facility] [id number] HPI - General General Date of Admission: 06/07/23 Date of Service: 06/07/23 Chief Complaint: EtOH abuse/withdrawal. HPI Narrative The patient is a 58 y/o F w/ PMHx: Overweight, HLD, HTN, GERD, Anxiety and Depression, Tobacco use, EtOH abuse (3 bottles, smaller of crown daily), Cannabis use who presents to the [facility] ED on 06/07/23 with history of onset acute EtOH withdrawal, onset starting late afternoon/early evening on day of presentation following last EtOH intake AM of day of presentation with onset of nausea, tremors, agitation, tactile disturbances. Patient interested in attaining sober status. Work-up in the ED included T98.1, heart rate 89, BP 152/89, respiratory rate 17, 99% on room air, see see with WC 6.0, and 114.9, platelet 318 without marked shift, CMP unremarkable, UDS with positive cannabis, urine testnegative, ethyl alcohol level 146. [facility] Medical History (Updated 06/07/23 @ 21:[address] Jennifer Jeffries MD) Alcohol abuse Anxiety and depression GERD (gastroesophageal reflux disease) Hyperlipidemia Hypertension Overweight Tobacco use Vocal cord disease Home Medications duloxetine 30 mg capsule,delayed release 60 mg PO DAILY 08/12/17 [History Last Taken Unknown] omeprazole 40 mg capsule,delayed release 40 mg PO DAILY #30 caps 12/24/17 [Rx Last Taken Unknown] famotidine 20 mg tablet (Pepcid) 20 mg PO DAILY PRN acid reflux #14 tabs 01/01/22 [Rx Last Taken Unknown] gabapentin 100 mg capsule 1,200 mg PO DAILY 01/01/22 [History Last Taken Unknown] hydroxyzine HCl 25 mg tablet 25 mg PO BID 01/01/22 [History Last Taken Unknown] metoprolol succinate 50 mg tablet,extended release 24 hr 50 mg PO DAILY 01/01/22[History Last Taken Unknown] ondansetron 4 mg disintegrating tablet 4 mg PO Q8H PRN nausea and vomiting #14 tabs 01/01/22 [Rx Last Taken Unknown] amitriptyline 50 mg tablet 50 mg PO QHS 06/07/23 [History Last Taken Unknown] atorvastatin 10 mg tablet 10 mg PO QHS 06/07/23 [History Last Taken Unknown] clonidine HCl 0.1 mg tablet 0.1 mg PO BID PRN anxiety 06/07/23 [History Last Taken Unknown] lisinopril 5 mg tablet 5 mg PO DAILY 06/07/23 [History Last Taken Unknown] Allergy/AdvReac Type Severity Reaction Status Date / Time codeine AdvReac very hard Verified 01/01/22 09:09 to awaken Iodine and Iodide Containing AdvReac Hives Verified 01/01/22 09:09 Produc Penicillins AdvReac Rash Verified 01/01/22 09:09 Family History (Updated 06/07/23 @ 21:[address] Jennifer Jeffries MD) Mother CVA (cerebral vascular accident) Hypertension Heart disease Diabetes Father Alcoholism Surgical History (Updated 06/07/23 @ 21:[address] Jennifer Jeffries MD) H/O rectal polypectomy History of oral surgery S/P foot surgery, right Social History (Updated 06/07/23 @ 21:[address] Jennifer Jeffries MD) household members: none Smoking Status: Current every day smoker tobacco type: cigarettes Smoking packsper day: 0.75 Smoking cigarettes per day: 15.0 alcohol intake: current alcohol intake frequency: 3 or more drinks per day details: Several crown drinks daily. substance use type: marijuana ROS ROS Narrative Admission Review of Systems: CONSTITUTIONAL: No weight loss, fever, chills, + weakness or fatigue. HEENT: + Strabismus. Eyes: No visual loss, blurred vision, double vision or yellow sclerae. Ears, Nose, Throat: No hearing loss, sneezing, congestion, runny nose or sore throat. SKIN: No rash or itching, lesions, wounds. CARDIOVASCULAR: No chest pain, chest pressure or chest discomfort, palpitations,edema, orthopnea, syncopal events. RESPIRATORY: No shortness of breath, cough or sputum, wheezing, hemoptysis. GASTROINTESTINAL: + anorexia, nausea. No vomiting or diarrhea, abdominal pain, melena, BRBPR. GENITOURINARY: No dysuria, frequency, urgency or retention. NEUROLOGICAL: + Mild tremors, mild tactile disturbances. No headache, dizziness, syncope, paralysis, ataxia, numbness or tingling in the extremities, focal weakness, change in bowel or bladder control, seizure. MUSCULOSKELETAL: No muscle, back pain, joint pain or stiffness. HEMATOLOGIC: No anemia, bleeding or bruising. LYMPHATICS: No enlarged nodes. No history of splenectomy. PSYCHIATRIC: + history of depression or anxiety. ENDOCRINOLOGIC: No reports of sweating, cold or heat intolerance. No polyuria orpolydipsia. ALLERGIES: + history of hives. Vital Signs Vital Signs Vital Signs: 06/07/23 18:21 Temperature 98.1 F Temperature Source Temporal Pulse Rate 89 Respiratory Rate 17 Blood Pressure 152/89 H Blood Pressure Mean 110 Pulse Ox 99 Oxygen Delivery Method Room Air Weight Weight: 157 lb 1.6 oz Body Mass Index (BMI) 27.8 Physical Exam Narrative Physical Examination: General: Awake, alert, oriented x 3 and cooperative, seated upright in the ED bed, fatigued, mildly tremulous and restless. Skin: Normal color, normal turgor, no icterus, no cyanosis. HEENT: AT/NC, EOMI, PERRLA, moderately dry MM, noted strabismus which is chronic, no carotid bruits or JVD noted. Lungs: CTA bilaterally, moderate effort, mild decrease BL bases, no rales, ronchi or wheezing. Heart: Regular rate and rhythm; no gallop, rub audible. Abdomen: Soft, mild generalized discomfort but no rebound or guarding and more so in the right upper quadrant/epigastric region, ND, hyperactive BS, + appreciated mild HM. Extremities: No cyanosis, clubbing, or edema. Neurological: Patient awake, alert, oriented as noted, cognitive function intact; pupils equally reactive to light and accommodation, cranial nerves II-XII grossly normal, moving all 4 extremities, no focal deficits, strength moderately globally decreased secondary to acute presentation, mildly tremulous,mild tactile disturbances noted. Psychiatric: Affect appears fatigued, no acute evidence of depressive or anxietyfeelings but does have underlying history. Results Lab / Micro Data 06/07/23 19:40 06/07/23 19:40 Assessment & Plan Assessment/Plan (1) Alcohol withdrawal: PLAN: Plan The patient is a 58 y/o F w/ PMHx: Overweight, HLD, HTN, GERD, Anxiety and Depression, Tobacco use, EtOH abuse (3 bottles, smaller of crown daily), Cannabis use who presents to the [facility] ED on 06/07/23 with history of onset acute EtOH withdrawal. #1. Acute EtOH Withdrawal: Will admit to medical surgical floor, ED labs obtained with no acute concerning findings, UDS with positive cannabis otherwisenot marked, at the alcohol level initial 146. Given interest in sobriety, will initiate and continue on protocol with taper course of Phenobarbital, as needed gabapentin, Catapres, Bentyl, Vistaril, IV fluids, IV antiemetics, Tylenol as needed for pain. Will consult Case management for assistance for transition to next level of rehabilitation care. Mag, phos pending. Maintain on CIWA protocol concurrently. #2. Anxiety and depression: We will continue patient home low-dose hydroxyzine regimen as well as duloxetine. Additionally would benefit from aggressive counseling as likely contributing to her substance abuse. Clarifying but patient also previously noted to be on amitriptyline 50 mg nightly, will add if appropriate. #3. Hypertension: Continue home regimen including metoprolol, lisinopril, PRN hydralazine. #4. Hyperlipidemia: Continue home statin regimen. #5. Overweight: Weight loss and lifestyle changes encouraged. #6. Tobacco Abuse: Encouraged cessation, inpatient consultation per RT, NR if desired. #7. GERD: We will continue patient on PPI. #8. DVT prophylaxis: Low risk. Charges/Coding Visit Charges Inpatient E&M: 68203 Init Hosp L2 06/07/232138 <Electronically signed by Jennifer Jeffries MD> Cosigner Signature (if applicable): CC: Dr. Jennifer Jeffries MD; [facility]~ Signed [facility] Work Phone: [phone] 450-991007-28-2023 Discharge summary Author Adam Mark [facility] June 07, 2023 8:26pm Note Date/Time June 07, 2023 7:50 pm [facility] Medical Records Department [address] [place] [address] Emergency Department Summary 06/07/23 MR#: [id number] Acct: [id number] Name: RAINER SMART Rep #:[id number] : 1965 58 From: Adam Mark MD PCP: [facility] St atus:REG ER Location: ED HPI History of Present Illness Chief Complaint: Substance Abuse Detail of Chief Complaint: [facility] for alcohol detox Informant: patient and family Onset/Context/Timing Onset: - (Years) Context: Sudden Onset Timing: Continuous Quality: Drink of choice is whiskey. Less than a pint a day Location: Home Current Severity: Mild Maximum Severity: Severe Worsened by: Abstinence Relieved by: Drinking alcohol Associated Symptoms Associated Symptoms: Presently none Narrative Narrative: Patient is a 58-year-old woman who is never been in detox. She has history of peptic ulcer disease, hypertension, neuropathy who presents for inpatient therapy of detox. She drinks slightly less than a pint of whiskey a day. She has been drinking for many years. She denies hematuria, bleeding of her gums, bruising easily black or maroon stool. Her last drink was approximately 0930. Prior similar symptoms: No Recent Illness/Hospitalization: No PFSH PFSH Medical History Alcohol abuse Anxiety and depression GERD (gastroesophageal reflux disease) Hyperlipidemia Hypertension Overweight Tobacco use Home Medications duloxetine 30 mg capsule,delayed release 60 mg PO DAILY 08/12/17 [History Last Taken Unknown] omeprazole 40 mg capsule,delayed release 40 mg PO DAILY #30 caps 12/24/17 [Rx Last Taken Unknown] famotidine 20 mg tablet (Pepcid) 20 mg PO DAILY PRN acid reflux #14 tabs 01/01/22 [Rx Last Taken Unknown] gabapentin 100 mg capsule 1,200 mg PO DAILY 01/01/22 [History Last Taken Unknown] hydroxyzine HCl 25 mg tablet 25 mg PO BID 01/01/22 [History Last Taken Unknown] metoprolol succinate 50 mg tablet,extended release 24 hr 50 mg PO DAILY 01/01/22[History Last Taken Unknown] ondansetron 4 mg disintegrating tablet 4 mg PO Q8H PRN nausea and vomiting #14 tabs 01/01/22 [Rx Last Taken Unknown] amitriptyline 50 mg tablet 50 mg PO QHS 06/07/23 [History Last Taken Unknown] atorvastatin 10 mg tablet 10 mg PO QHS 06/07/23 [History Last Taken Unknown] clonidine HCl 0.1 mg tablet 0.1 mg PO BID PRN anxiety 06/07/23 [History Last Taken Unknown] lisinopril 5 mg tablet 5 mg PO DAILY 06/07/23 [History Last Taken Unknown] Allergy/AdvReac Type Severity Reaction Status Date / Time codeine AdvReac very hard Verified 01/01/22 09:09 to awaken Iodine and Iodide Containing AdvReac Hives Verified 01/01/22 09:09 Produc Penicillins AdvReac Rash Verified 01/01/22 09:09 Social History (Updated 06/07/23 @ 19:[address] Adam Mark MD) Smoking Status: Current every day smoker tobacco type: cigarettes alcohol intake: current alcohol intake frequency: other substance use type: does not use ROS ROS ED Constitutional Constitutional ED: Reports sweats; Denies chills, fever(s), subjective or weightloss Eyes Eyes: Denies blurry vision, change in vision or diplopia ENT ENT ED: Denies ear pain, rhinorrhea or sore throat Cardiovascular Cardiovascular: Reports palpitations and racing heartbeat; Denies chest pain Respiratory/Chest Respiratory/Chest: Denies cough, dyspnea or dyspnea on exertion Gastrointestinal Gastrointestinal: Denies abdominal pain, nausea or vomiting Genitourinary Genitourinary ED: Denies dysuria, hematuria or urinary frequency Musculoskeletal Musculoskeletal: Denies arthralgias, back pain, myalgias or neck pain Neurologic Neurologic: Denies headache(s), paresthesias or weakness Psychiatric Psychiatric: Denies anxiety or depression Hematologic/Lymphatic Hematologic/Lymphatic: Reports systems reviewed and no addt'l complaints, exceptas documented EXAM Physical Exam Const Vital Signs: 06/07/23 18:21 Temperature 98.1 F Temperature Source Temporal Pulse Rate 89 Respiratory Rate 17 Blood Pressure 152/89 H Blood Pressure Mean 110 Pulse Ox 99 Oxygen Delivery Method Room Air Positive well nourished and well developed General Appearance ED: well developed; Negative for pallor HEENT Reports moist mucous membranes Eyes PERRL and EOMs intact bilaterally General Eye ED: Negative for pale conjunctiva or scleral icterus Neck no lymphadenopathy, supple and no JVD Chest Wall inspection of chest normal and palpation of chest normal Resp normal respiratory effort and clear to auscultation bilaterally Cardio regular rate, regular rhythm, S1 normal heart sound, S2 normal heart sound and no murmurs GI normal to inspection, nondistended, normoactive bowel sounds, non-tender, non-distended and no masses; Negative for hepatosplenomegaly Back/Spine no CVA tenderness Extremity normal to inspection Neuro oriented x3 and CN's II-XII intact bilaterally Sensorium / Orientation: alert Psych mental status grossly normal Skin no rashes or lesions noted, no wounds and skin turgor normal General Skin Exam: Negative for jaundice or pallor MDM MDM MDM Narrative Medical decision making narrative: Action medicine order set was initiated. We will assess liver enzymes, rule outanemia, assess for thrombocytopenia. Patient has presently no symptoms of withdrawal. She does have symptoms of withdrawal when she does not drink. She has awakened in the morning with shakes, palpitations, rapid heartbeat and sweats. She states those symptoms resolved when she drinks. She is not had a drink since 9:30 AM. Will discuss case with hospitalist and plan is admission to [facility] for alcohol dependency and abuse. Lab Data Attestation: I reviewed the patient's lab results. Lab results narrative: CBC is normal. Comprehensive metabolic panel is normal. Urine tox is positive for cannabis. test was negative. Labs: Laboratory Results - last 24 hr 06/07/23 06/07/23 19:40 20:10 WBC 6.0 RBC 4.65 Hgb 14.9 Hct 44.7 MCV 96.1 MCH 32.0 MCHC 33.3 RDW Std Deviation 45.2 H RDW Coeff of Pantera 12.8 Plt Count 318 MPV 8.6 Immature Gran % (Auto) 0.300 Neut % (Auto) 52.7 Lymph % (Auto) 39.5 [place] % (Auto) 6.5 Eos % (Auto) 0.7 Baso % (Auto) 0.3 Absolute Neuts (auto) 3.1 Absolute Lymphs (auto) 2.36 Nucleated RBC % 0 Sodium 142 Potassium 3.5 Chloride 106 Carbon Dioxide 28.0 Anion Gap 8 BUN 8 Creatinine 0.79 Estim Creat Clear Calc 62.64 Est GFR (MDRD) Af Amer 96 Est GFR (MDRD) Non-Af 79 BUN/Creatinine Ratio 10.2 Glucose 88 Calcium 8.9 Phosphorus 3.3 Magnesium 2.6 Total Bilirubin 0.20 AST 23 ALT 33 Alkaline Phosphatase 114 Total Protein 7.6 Albumin 3.8 Globulin 3.8 Albumin/Globulin Ratio 1.0 Urine Test Negative Urine Opiates Screen NEGATIVE Urine Methadone Screen NEGATIVE Ur Barbiturates Screen NEGATIVE Ur Phencyclidine Scrn NEGATIVE Ur Amphetamines Screen NEGATIVE MDMA (Ecstasy) Screen NEGATIVE U Benzodiazepines Scrn NEGATIVE Urine Cocaine Screen NEGATIVE U Cannabinoids Screen POSITIVE H Ur Drug Screen Comment Discharge Plan Dx/Rx/DC Orders Clinical Impression: Anxiety with depression, Alcohol abuse with physiological dependence, History of gastroesophageal reflux (GERD) Disposition Disposition: [facility] What to do if you have Problems For any increased pain, shortness of breath, bleeding, nausea or vomiting, chestpain, or any unexpected problems, contact your Primary Care Provider. Call [facility] ([phone]) or report to the closest Emergency Room. Call 911 if necessary. 06/07/232025 <Electronically signed by Adam Mark MD> Cosigner Signature (if applicable): CC: [facility] ~ Signed [facility] Work Phone: [phone] 393-731206-19-2023 Emergency department Note* Dot Lowery RN - 04/29/2023 7:34 PM EDT Reviewed discharge instructions and patient verbalized understanding. No further questions. Patientambulated out of ED with strong steady gait. Respirations even and non labored. No acute distress. A&O x4. Dot Lowery RN 04/29/23[address] [id number] Note* Dot Lowery RN - 04/29/2023 7:34 PM EDT Reviewed discharge instructions and patient verbalized understanding. No further questions. Patientambulated out of ED with strong steady gait. Respirations even and non labored. No acute distress. A&O x4. Dot Lowery RN 04/29/231934 * Nitesh Mark MD - 04/29/2023 6:52 PM EDT EMERGENCY DEPARTMENT ENCOUNTER Pt Name: Rainer Smart Birthdate 1965 Date of evaluation: 04/29/2023 ED Provider: Nitesh Mark MD CHIEF COMPLAINT No chief complaint on file. HISTORY OF PRESENT ILLNESS (Location/Symptom, Timing/Onset, Context/Setting, Quality, Duration, Modifying Factors, Severity) Note limiting factors. I wore appropriate PPE for the entirety of this encounter. HPI Rainer Smart is a 58 y.o. adult who presents to the emergency department with tooth pain Patient has a history of cigarette smoking, drinks occasionally, hypertension, chronic low back pain with sciatica, alcohol use, family history of bladder and prostate cancer. She had a vocal cord scraped surgically many years ago and this has allowed her to speak and breathe normally (she had beenworking at a [employer] for a long time, she normally works there). Over the past several days she has noted worsening pain in the right lower jaw, specifically around tooth #29 which is broken off at the gumline. Small amount of gingivitis is forming there. All of the upper/maxillary teeth are false/dentures. Tooth #28 has multiple cavities which have been filled. Teeth #30, 31, 32 are gone completely, . She denies any change in the tone of her voice, no stridor no trismus no drooling, no change in her ability to eat or drink, no fevers no chills no purulent or bloody drainage. No symptoms inferior to the clavicles. No chest pain palpitation shortness of breath abdominal pain. No neck stiffness or induration, no limitation of range of motion of the neck. Afebrile, minimally hypertensive, normal heart rate. Patient is going to follow-up with her dentist in [place] tomorrow, but today is a federal holiday, so she was unable to get an appointment today and came to the emergency department hoping to be prescribed antibiotics to prevent any infection from forming. She has been takin g Tylenol for pain. Nursing Notes were reviewed. Limitations to history: None Outside historians: None REVIEW OF SYSTEMS Review of Systems Pertinent positives and negatives as per HPI PAST MEDICAL HISTORY Past Medical History: Diagnosis Date Anxiety Depression Hyperlipidemia Hypertension Lower back injury SURGICAL HISTORY Past Surgical History: Procedure Laterality Date LARYNGOSCOPY CURRENT MEDICATIONS Previous Medications ALBUTEROL 108 (90 BASE) MCG/ACT INHALER Inhale 2 puffs. AMITRIPTYLINE (ELAVIL) 10 MG TABLET take 2 and 1/2 tablets by mouth nightly Strength: 10 mg DULOXETINE (CYMBALTA) [address] CAPSULE Take 2 capsules (120 mg) by mouth daily. HYDROXYZINE HCL (ATARAX) 25 MG TABLET Take 1 tablet (25 mg) by mouth every 8 hours as needed for anxiety. HYDROXYZINE HCL (ATARAX) 25 MG TABLET Take 25 mg by mouth. METOPROLOL SUCCINATE XL (TOPROL-XL) 50 MG 24 HR TABLET Take 1 tablet (50 mg) by mouth every morning. OMEPRAZOLE (PRILOSEC) [address] CAPSULE take 2 capsules by mouth daily ALLERGIES Codeine, Penicillins, and Iodine FAMILY HISTORY Family History Problem Relation Name Age of Onset Cancer Mother's Sister bladder cancer Cancer Sister pancreatic Heart attack Maternal Grandmother Stroke Maternal Grandmother SOCIAL HISTORY Social History Socioeconomic History Marital status: Single Tobacco Use Smoking status: Every Day Packs/day: 0.10 Types: Cigarettes Smokeless tobacco: Never Tobacco comments: Quit smoking: down to 2 cigarettes a day Substance and Sexual Activity Alcohol use: Yes Drug use: Yes Types: Marijuana SCREENINGS PHYSICAL EXAM ED Triage Vitals Temp Pulse Resp BP -- -- -- -- SpO2 Temp src Heart Rate Source Patient Position -- -- -- -- BP Location FiO2 (%) -- -- Physical Exam General: WDWN adult in NAD. Non-toxic appearing HENT: Head NCAT, EOMI with no erythema, swelling or discharge. TMs normal bilaterally There is normal bilaterally Oropharyngeal mucus membranes moist, pink, no exudate. All of the maxillary/upper teeth have been replaced by dentures. Tooth #29 is broken off at the gumline and is tender to palpation. There is no purulent or bloody drainage from the socket. There is minimal surrounding gingivitis but there is noabscess to drain. There is no fluctuance or purulent collection. Teeth #30, 31, 32 are all gone. Tooth #28 has multiple cavities which have been filled. There is no abscess in the oropharynx or the gingival tissue surrounding the mandibular teeth. Neck: Full ROM, supple, no rigidity, no stridor no trismus no drooling. Speaks in a normal tone of voice. Cardio: RRR, nl s1 s2 no m/r/g, extremities warm, dry, well perfused, non-edematous Lungs: CTAB, no wheezes, rales, rhonchi, normal work of breathing Abdomen: Soft, NT, ND, non-rigid, BS x 4 normal Skin: Warm, dry, pink, no rashes, bruising, or lacerations, no petechiae, no purpura. There is no facial cellulitis, there is no abscess in the subcutaneous tissues of the face Neuro: Alert, oriented, mentating normally DIAGNOSTIC RESULTS RADIOLOGY (Per Emergency Physician): Interpretation per the Radiologist below, if available at the time of this note: No orders to display None required LABS: Labs Reviewed - No data to display None required All other labs were within normal range or not returned as of this dictation. EMERGENCY DEPARTMENT COURSE and DIFFERENTIAL DIAGNOSIS/MDM: Vitals: There were no vitals filed for this visit. Medications - No data to display 58-year-old female presents with due to K, tooth #29 right lower The patient does not have a dental abscess, there is no oropharyngeal abscess, there is no retropharyngeal or peritonsillar abscess. However I can see a small amount of gingivitis starting, and the patient complains of increasing pain there. To prevent any infection from forming we will prescribe the patient clindamycin antibiotics and also Percocet for pain. No imaging is required, there is no clinical signs of abscess. No blood work is required as it would not change clinical management. Patient does not have any signs of sepsis or toxicity. There is nofacial cellulitis. There is no indication for emergent dental consultation. MDM elements: The patient presented with chief complaint of tooth decay. The differential diagnosis associated with this patient's presentation includes clinical diagnosis of tooth decay. Our workup consisted of ordering/reviewing: Patient's physical examination only; no lab work or imaging required. I also reviewed external records from patient's past medical history to obtain collateral history information as charted in [facility] on previous visits. Patient is in agreement with this plan. Patient's care was significantly impacted by social determinants of health including cigarettes andalcohol use. PROCEDURES: Unless otherwise noted below, none Procedures There is no indication for IV antibiotics. I will prescribe the patient clindamycin antibiotics forhome use. She should make sure to take them all even if she feels better. She should take them withfood to avoid stomach upset. I also prescribed Percocet for pain. She should not take any other Tylenol containing products with the Percocet. Patient already has a dental appointment planned for tomorrow with [facility] in [place], [place]. I encouraged her to keep this appointment. When she sees her dentist tomorrow, they may decide that extraction of tooth #29 as necessary. I defer to them regarding timing and appropriateness ofany operative intervention. The patient develops worsening pain worsening swelling, stridor trismus or drooling, purulent or bloody drainage coming of the tooth, fevers or chills, change in the tone of her voice, inability to eat or drink, she should return to the ED immediately. Otherwise she should be stable for outpatient management with her dentist tomorrow. Results of workup and plan of care discussed with patient. She indicated understanding. Strict return precautions and anticipatory guidance given. All questions answered to her satisfaction. Patient discharged home in stable condition. Disposition: Discharged Clinical impression: Tooth decay CRITICAL CARE TIME FINAL IMPRESSION 1. Tooth decay DISPOSITION Discharge 04/29/2023 07:11:25 PM PATIENT REFERRED TO: [facility] On 04/30/2023 DISCHARGE MEDICATIONS: New Prescriptions CLINDAMYCIN (CLEOCIN) 150 MG CAPSULE Take 3 capsules (450 mg) by mouth 3 times daily for 7 days. OXYCODONE-ACETAMINOPHEN (PERCOCET) 5-325 MG TABLET Take 1 tablet by mouth every 6 hours as needed for severe pain (7-10) for up to 5 days. (Comment: Please note this report has been produced using speech recognition software and may contain errors related to that system including errors in grammar, punctuation, and spelling, as well as words and phrases that may be inappropriate. If there are any questions or concerns please feel freeto contact the dictating provider for clarification.) Nitesh Mark MD (electronically signed) Emergency Medicine Provider Nitesh Mark MD 04/29/231928 * Dot Lowery RN - 04/29/2023 6:52 PM EDT Patient ambulated to ED5 for right lower jaw pain since yesterday. She notes a couple of bad teeth.She also endorses swelling and pain from the chin to the ear. She broke a tooth a couple of months ago and has issues with the tooth next to it. She took Tylenol x2 at 1730. Patient appears to be in no acute distress. Skin is warm, dry, and pink. A&O x3. Respirations even and non labored. Bed in locked and low position. Call light within reach. Patient has no further needs. documented in this [facility]06[facility]19[facility]23 Hospital Discharge instructions* Discharge Instructions* Nitesh Mark MD - 04/29/2023 7:12 PM EDT You have been seen in the Emergency Department for tooth decay on your lower right jaw. There is nosign of an abscess right now, but to prevent infection I prescribed you antibiotics called clindamycin. Please take them all, even if you feel better. Take them with food to avoid stomach upset. I have also prescribed you Percocet for pain. Do not drink alcohol or drive a car while on Percocet as it would make you sleepy. After a visit to the Emergency Department, follow-up is important. You should follow-up with your dentist first thing tomorrow to ensure you are feeling better and get any extraction procedure done that they deem necessary. Return to the ED if you develop fevers, chills, change in the tone of your voice, difficulty swallowing or speaking, difficulty opening your jaw, pus or blood starts draining out of your mouth, or ifany new signs, symptoms, or concerns arise. * Attachments The following attachments cannot be sent through Care Everywhere. * Dental Pain (Citizen [place]) * Tooth Decay ED ([place]izen [place]) documented in this [facility]06[facility]19-[facility]23 Emergency department Triage note* Dot Lowery RN - 04/29/2023 6:52 PM EDT Patient ambulated to ED5 for right lower jaw pain since yesterday. She notes a couple of bad teeth.She also endorses swelling and pain from the chin to the ear. She broke a tooth a couple of months ago and has issues with the tooth next to it. She took Tylenol x2 at 1730. Patient appears to be in no acute distress. Skin is warm, dry, and pink. A&O x3. Respirations even and non labored. Bed in locked and low position. Call light within reach. Patient has no further needs. [id number] Physician Emergency department Note* Nitesh Mark MD - 04/29/2023 6:52 PM EDT EMERGENCY DEPARTMENT ENCOUNTER Pt Name: Rainer Smart Birthdate 1965 Date of evaluation: 04/29/2023 ED Provider: Nitesh Mark MD CHIEF COMPLAINT No chief complaint on file. HISTORY OF PRESENT ILLNESS (Location/Symptom, Timing/Onset, Context/Setting, Quality, Duration, Modifying Factors, Severity) Note limiting factors. I wore appropriate PPE for the entirety of this encounter. HPI Rainer Smart is a 58 y.o. adult who presents to the emergency department with tooth pain Patient has a history of cigarette smoking, drinks occasionally, hypertension, chronic low back pain with sciatica, alcohol use, family history of bladder and prostate cancer. She had a vocal cord scraped surgically many years ago and this has allowed her to speak and breathe normally (she had beenworking at a [employer] for a long time, she normally works there). Over the past several days she has noted worsening pain in the right lower jaw, specifically around tooth #29 which is broken off at the gumline. Small amount of gingivitis is forming there. All of the upper/maxillary teeth are false/dentures. Tooth #28 has multiple cavities which have been filled. Teeth #30, 31, 32 are gone completely, . She denies any change in the tone of her voice, no stridor no trismus no drooling, no change in her ability to eat or drink, no fevers no chills no purulent or bloody drainage. No symptoms inferior to the clavicles. No chest pain palpitation shortness of breath abdominal pain. No neck stiffness or induration, no limitation of range of motion of the neck. Afebrile, minimally hypertensive, normal heart rate. Patient is going to follow-up with her dentist in [place] tomorrow, but today is a federal holiday, so she was unable to get an appointment today and came to the emergency department hoping to be prescribed antibiotics to prevent any infection from forming. She has been takin g Tylenol for pain. Nursing Notes were reviewed. Limitations to history: None Outside historians: None REVIEW OF SYSTEMS Review of Systems Pertinent positives and negatives as per HPI PAST MEDICAL HISTORY Past Medical History: Diagnosis Date Anxiety Depression Hyperlipidemia Hypertension Lower back injury SURGICAL HISTORY Past Surgical History: Procedure Laterality Date LARYNGOSCOPY CURRENT MEDICATIONS Previous Medications ALBUTEROL 108 (90 BASE) MCG/ACT INHALER Inhale 2 puffs. AMITRIPTYLINE (ELAVIL) 10 MG TABLET take 2 and 1/2 tablets by mouth nightly Strength: 10 mg DULOXETINE (CYMBALTA) [address] CAPSULE Take 2 capsules (120 mg) by mouth daily. HYDROXYZINE HCL (ATARAX) 25 MG TABLET Take 1 tablet (25 mg) by mouth every 8 hours as needed for anxiety. HYDROXYZINE HCL (ATARAX) 25 MG TABLET Take 25 mg by mouth. METOPROLOL SUCCINATE XL (TOPROL-XL) 50 MG 24 HR TABLET Take 1 tablet (50 mg) by mouth every morning. OMEPRAZOLE (PRILOSEC) [address] CAPSULE take 2 capsules by mouth daily ALLERGIES Codeine, Penicillins, and Iodine FAMILY HISTORY Family History Problem Relation Name Age of Onset Cancer Mother's Sister bladder cancer Cancer Sister pancreatic Heart attack Maternal Grandmother Stroke Maternal Grandmother SOCIAL HISTORY Social History Socioeconomic History Marital status: Single Tobacco Use Smoking status: Every Day Packs/day: 0.10 Types: Cigarettes Smokeless tobacco: Never Tobacco comments: Quit smoking: down to 2 cigarettes a day Substance and Sexual Activity Alcohol use: Yes Drug use: Yes Types: Marijuana SCREENINGS PHYSICAL EXAM ED Triage Vitals Temp Pulse Resp BP -- -- -- -- SpO2 Temp src Heart Rate Source Patient Position -- -- -- -- BP Location FiO2 (%) -- -- Physical Exam General: WDWN adult in NAD. Non-toxic appearing HENT: Head NCAT, EOMI with no erythema, swelling or discharge. TMs normal bilaterally There is normal bilaterally Oropharyngeal mucus membranes moist, pink, no exudate. All of the maxillary/upper teeth have been replaced by dentures. Tooth #29 is broken off at the gumline and is tender to palpation. There is no purulent or bloody drainage from the socket. There is minimal surrounding gingivitis but there is noabscess to drain. There is no fluctuance or purulent collection. Teeth #30, 31, 32 are all gone. Tooth #28 has multiple cavities which have been filled. There is no abscess in the oropharynx or the gingival tissue surrounding the mandibular teeth. Neck: Full ROM, supple, no rigidity, no stridor no trismus no drooling. Speaks in a normal tone of voice. Cardio: RRR, nl s1 s2 no m/r/g, extremities warm, dry, well perfused, non-edematous Lungs: CTAB, no wheezes, rales, rhonchi, normal work of breathing Abdomen: Soft, NT, ND, non-rigid, BS x 4 normal Skin: Warm, dry, pink, no rashes, bruising, or lacerations, no petechiae, no purpura. There is no facial cellulitis, there is no abscess in the subcutaneous tissues of the face Neuro: Alert, oriented, mentating normally DIAGNOSTIC RESULTS RADIOLOGY (Per Emergency Physician): Interpretation per the Radiologist below, if available at the time of this note: No orders to display None required LABS: Labs Reviewed - No data to display None required All other labs were within normal range or not returned as of this dictation. EMERGENCY DEPARTMENT COURSE and DIFFERENTIAL DIAGNOSIS/MDM: Vitals: There were no vitals filed for this visit. Medications - No data to display 58-year-old female presents with due to K, tooth #29 right lower The patient does not have a dental abscess, there is no oropharyngeal abscess, there is no retropharyngeal or peritonsillar abscess. However I can see a small amount of gingivitis starting, and the patient complains of increasing pain there. To prevent any infection from forming we will prescribe the patient clindamycin antibiotics and also Percocet for pain. No imaging is required, there is no clinical signs of abscess. No blood work is required as it would not change clinical management. Patient does not have any signs of sepsis or toxicity. There is nofacial cellulitis. There is no indication for emergent dental consultation. MDM elements: The patient presented with chief complaint of tooth decay. The differential diagnosis associated with this patient's presentation includes clinical diagnosis of tooth decay. Our workup consisted of ordering/reviewing: Patient's physical examination only; no lab work or imaging required. I also reviewed external records from patient's past medical history to obtain collateral history information as charted in [facility] on previous visits. Patient is in agreement with this plan. Patient's care was significantly impacted by social determinants of health including cigarettes andalcohol use. PROCEDURES: Unless otherwise noted below, none Procedures There is no indication for IV antibiotics. I will prescribe the patient clindamycin antibiotics forhome use. She should make sure to take them all even if she feels better. She should take them withfood to avoid stomach upset. I also prescribed Percocet for pain. She should not take any other Tylenol containing products with the Percocet. [facility] [place] [place] I encouraged her to keep this appointment. When she sees her dentist tomorrow, they may decide that extraction of tooth #29 as necessary. I defer to them regarding timing and appropriateness ofany operative intervention. The patient develops worsening pain worsening swelling, stridor trismus or drooling, purulent or bloody drainage coming of the tooth, fevers or chills, change in the tone of her voice, inability to eat or drink, she should return to the ED immediately. Otherwise she should be stable for outpatient management with her dentist tomorrow. Results of workup and plan of care discussed with patient. She indicated understanding. Strict return precautions and anticipatory guidance given. All questions answered to her satisfaction. Patient discharged home in stable condition. Disposition: Discharged Clinical impression: Tooth decay CRITICAL CARE TIME FINAL IMPRESSION 1. Tooth decay DISPOSITION Discharge 04/29/2023 07:11:25 PM [facility] DISCHARGE MEDICATIONS: New Prescriptions CLINDAMYCIN (CLEOCIN) 150 MG CAPSULE Take 3 capsules (450 mg) by mouth 3 times daily for 7 days. OXYCODONE-ACETAMINOPHEN (PERCOCET) 5-325 MG TABLET Take 1 tablet by mouth every 6 hours as needed for severe pain (7-10) for up to 5 days. (Comment: Please note this report has been produced using speech recognition software and may contain errors related to that system including errors in grammar, punctuation, and spelling, as well as words and phrases that may be inappropriate. If there are any questions or concerns please feel freeto contact the dictating provider for clarification.) Nitesh Mark MD (electronically signed) Emergency Medicine Provider Nitesh Mark MD 04/29/2319[address] [facility] [id number] Telephone encounter Note* Telephone Encounter - Lori Brand RN - 01/11/2023 3:18 PM EST S: Patient spoke with [facility] nurse regarding medication refills B: Amitriptyline 10 mg; 2.5 tablets HS Cymbalta 60mg; take 2 daily Hydroxyzine HCL 25mg; 1 every 8 hours as needed for anxiety Metoprolol succinate XL 50mg; 1 daily A: Patient is tearful and did not understand that she was not established at this time with Dr. Jaime. She is asking for someone to call in her medications. Patient declined earlier appointment offered with Dr. Johnson. I spoke with Dr. Johnson who states she is willing to refill medicationsfor 30 days until patient can get a New Patient with Dr. Jaime to get established. Patient is agreeable. R: New Patient appointment scheduled with Dr. Jaime on 01/21 at 1115am. Patient aware of appointment. Medications called in to pharmacy; 30 day supply, no refills. Patient advised medications were being called in. Reason for Disposition [1] Prescription refill request for ESSENTIAL medicine (i.e., likelihood of harm to patient if not taken) AND [2] triager unable to refill per department policy Protocols used: Medication Refill and Renewal [id number] [facility] [id number] Miscellaneous Notes* Telephone Encounter - Lori Brand RN - 01/11/2023 3:18 PM EST S: Patient spoke with [facility] nurse regarding medication refills B: Amitriptyline 10 mg; 2.5 tablets HS Cymbalta 60mg; take 2 daily Hydroxyzine HCL 25mg; 1 every 8 hours as needed for anxiety Metoprolol succinate XL 50mg; 1 daily A: Patient is tearful and did not understand that she was not established at this time with Dr. Jaime. She is asking for someone to call in her medications. Patient declined earlier appointment offered with Dr. Johnson. I spoke with Dr. Johnson who states she is willing to refill medicationsfor 30 days until patient can get a New Patient with Dr. Jaime to get established. Patient is agreeable. R: New Patient appointment scheduled with Dr. Jaime on 01/21 at 1115am. Patient aware of appointment. Medications called in to pharmacy; 30 day supply, no refills. Patient advised medications were being called in. Reason for Disposition [1] Prescription refill request for ESSENTIAL medicine (i.e., likelihood of harm to patient if not taken) AND [2] triager unable to refill per department policy Protocols used: Medication Refill and Renewal [id number] documented in this encounterSDoctors [id number] Telephone encounter Note* Telephone Encounter - Heather Perez - 01/10/2023 9:20 AM EST FYI: Called pt. She stated Dr. Jaime is now her PCP. Does not wish to schedule an appointment with Dr. Johnson. PCP updated in chart. Medications that were sent to Pharmacy yesterday canceled. [facility] [id number] Miscellaneous Notes* Telephone Encounter - Heather Perez - 01/10/2023 9:20 AM EST FYI: Called pt. She stated Dr. Jaime is now her PCP. Does not wish to schedule an appointment with Dr. Johnson. PCP updated in chart. Medications that were sent to Pharmacy yesterday canceled. * Telephone Encounter - Lisa Johnson MD - 01/09/2023 7:26 PM EST Call this patient,Patient requested refills of antidepressants and blood pressure. She has not beenseen by me since 2020. She saw dr jaime almost 1 year ago. I sent in 2 weeks of her medication. I will not be able to refill medication any further until she is seen and evaluated for an appointment. I will squeeze her in on 01/15 either at 9:40 or 4 pm. Call and get her scheduled. documented in this [facility]03-01-2023 Telephone encounter Note* Telephone Encounter - Lisa Johnson MD - 01/09/2023 7:26 PM EST Call this patient,Patient requested refills of antidepressants and blood pressure. She has not beenseen by me since 2020. She saw dr jaime almost 1 year ago. I sent in 2 weeks of her medication. I will not be able to refill medication any further until she is seen and evaluated for an appointment. I will squeeze her in on 01/15 either at 9:40 or 4 pm. Call and get her scheduled. [facility] Hospital[facility] note* Diagnosis Cervical myelopathy (HCC) Cervical spondylosis with myelopathy Ataxia Lack of coordination [facility] Work Phone: Evaluation noteNo assessment information available [facility] Work Phone: Evaluation note* Diagnosis Tooth decay- Primary Unspecified dental caries documented in this encounter [facility] note* Diagnosis Onset Date Resolution Status Alcohol abuse with physiological dependence acute Alcohol withdrawal acute Anxiety with depression acut e History of gastroesophageal reflux (GERD) acute [facility] Work Phone: Evaluation note* Diagnosis Onset Date Resolution Status Alcohol withdrawal resolved GERD (gastroesophageal reflux disease) acute Hx of colonic polyps acute Epigastric pain resolved GERD (gastroesophageal reflux disease) acute Hx of colonic polyps acute Epigastric pain resolved [facility] Work Phone: History and physical note Author Scarlett Cross [facility] August 09, 2023 7:52am Note Date/Time August 09, 2023 7:52am [facility] Medical Records Department [address] [place] [address] History & Physical Exam 08/09/23 0748 MR#: [id number] Acct: [id number] Name: RAINER SMART Rep #:[id number] : 1965 58 From: Scarlett Cross MD PCP: [facility] Location: [place] [address] HPI - General General Date of Service: 08/09/23 HPI Narrative RAINER SMART, is a 58 F who presents for EGD and colonoscopy due to epigastric pain/reflux. Patient has a history of tubular adenomas from previous colonoscopy in 2016 as well. Patient states her symptoms have resolved after being on the Carafate for about 2 weeks along with the pantoprazole. Patient iscurrently still on the PPI 07/03/23 office visit HPI HPI: 58-year-old female presents for an EGD and colonoscopy. Patient had previous EGD 08/2017 had 4 tubular adenomas that time also had an EGD at that time. Patient recently started detox program for alcohol about 3 weeks ago. Patient has bowel movements about every other day does have some issues with constipation she does take a herbal digestive pill no other laxatives. Patient denies any blood in her stool. Patient does think she drinks enough water throughout the day unsure about fiber. Patient was just started on pantoprazolelast week still having some epigastric pain states that all day denies any nausea but states that due to her previous alcoholism she is irritated her stomach a lot in the past. Patient states that pop can make the epigastric painworse. PFSH Medical History (Updated 08/09/23 @ 07:[address] Scarlett Cross MD) Alcohol abuse Alcohol abuse with physiological dependence Anxiety and depression Anxiety with depression GERD (gastroesophageal reflux disease) High cholesterol History of gastroesophageal reflux (GERD) Hyperlipidemia Hypertension Injury of back Marijuana use MRSA infection Overweight PTSD (post-traumatic stress disorder) Smoker Tobacco use Vocal cord disease Wears dentures Wears glasses Home Medications duloxetine 30 mg capsule,delayed release 60 mg PO DAILY 08/12/17 [History Last Taken Unknown] clonidine HCl 0.1 mg tablet 0.1 mg PO BID PRN anxiety 06/07/23 [History Last Taken Unknown] lisinopril 5 mg tablet 5 mg PO DAILY 06/07/23 [History Last Taken Unknown] multivitamin-iron 9 mg-folic acid 400 mcg-calcium and minerals tablet (High Potency Multivitamin (w-iron)) 1 tab PO BREAKFAST #0 tabs 06/10/23 [Rx Last Taken Unknown] amitriptyline 50 mg tablet 75 mg PO QHS 07/03/23 [History Last Taken Unknown] cyclobenzaprine 5 mg tablet 5 mg PO DAILY 07/03/23 [History Last Taken Unknown] pantoprazole 40 mg tablet,delayed release 40 mg PO BID 07/03/23 [History Last Taken Unknown] sucralfate 1 gram tablet 1 g PO QACHS #56 tabs 07/04/23 [Rx Last Taken Unknown] Allergy/AdvReac Type Severity Reaction Status Date / Time codeine AdvReac very hard Verified 08/08/23 08:46 to awaken Iodine and Iodide Containing AdvReac Hives Verified 08/08/23 08:46 Produc Penicillins AdvReac Rash Verified 08/08/23 08:46 Family History Mother CVA (cerebral vascular accident) Hypertension Heart disease Diabetes Father Alcoholism Sister Cancer pancreatic Surgical History H/O rectal polypectomy History of oral surgery S/P foot surgery, right Social History household members: none Smoking Status: Current every day smoker tobacco type: cigarettes alcohol intake: current alcohol intake frequency: 3 or more drinks per day details: Several crown drinks daily. substance use type: marijuana Past Medical/Surgical History Planned Operation Planned Operative Procedure/s: EGD, CSCOPE S.O.S: No Previous Hospitalizations/Surgeries HX Hospitalizations: Yes (ALCOHOL DETOX-06/2023) HX of Surgeries: vocal scraping, wlisdom teeth, toe surgery Any Problems With Anesthesia: No You/Your Family Experience Fever (Hyperthermia) With Anes: No Cholinesterase deficiency: No Cardiovascular Hx Chest Pain within Last 2 months: No Hx of Irregular Heartbeat and/or Afib: No Hx Heart Attack: No Hx Congestive Heart Failure: No Hx Rheumatic Fever: No Hx Hypertension: Yes (CONTROLLED WITH MED) Hx Internal Defibrillator: No Hx Pacemaker: No Hx Cardiac Catheterization: No Hx Cardiac Surgery/Stents/Etc.: No Hx Stress Test: No Hx Pain in Legs when Walking/Leg Cramps: No Respiratory Chronic Cough: No HX of Shortness of Breath: No Hoarseness: No Hx Chronic Obstructive Pulmonary Disease (COPD): No Hx Asthma: Yes Hx Emphysema: No Hx Sleep Apnea: No Hx Respiratory Tract Infection/Cold (presently): No Do You Snore Loudly (louder than talking or can be heard): No Do You Often Feel Tired/ Fatigued/ Sleepy Dring Daytime?: No Has Anyone Observed You Stop Breathing During Sleep?: No Result (for STOP score): Negative Hx Smoking: Yes Smoking Status: Current every day smoker Gastrointestinal Hx Gastroesophageal Reflux: Yes Controlled With Meds: Yes Hx Gastrointestinal Disorders: No Hx Gastrointestinal Bleed: No Hx Ulcer: No Hx Hiatal Hernia: No Difficulty Chewing/Swallowing: Yes (occ swallowing) Special diet followed at home: No Hx Unplanned Weight Loss of 20#: No HX Unplanned Weight Gain of 20#: No Neurological Hx Seizures: No HX Syncope/Blackout Spells/Unconsciousness: No Hx Transient Ischemic Attacks (TIA): No Hx Multiple Sclerosis: No Hx Parkinson's Disease: No Hx Head/Neck Injury: Yes Hx Headaches: No Hx Back Injury/Pain: Yes Recent Onset of Speech Difficulty: No Restless Legs: No Does patient have nerve stimulator: No Blood Disorder Hx Leukemia: No Bleeding Tendencies: No Hx Deep Vein Thrombosis: No Hx High Cholesterol: Yes (on meds) Blood Transmitted Disease: No Hx Hepatitis: No Hx Cirrhosis: No Hx Anemia: No Hx Blood Disorders: No Reproduction Is Patient Lactating: No Hx Hysterectomy: No Hx Tubal Ligation: No Are You Post Menopause: No Genitourinary Hx Renal Disease: No Musculoskeletal Hx Arthritis: Yes (back) Hx Rheumatoid Arthritis: No Hx Gout: No Recent Onset of an Orthopedic Problem: No Endocrine Hx Diabetes: No Thyroid Disease: No Hx Steroid Therapy: No Psycho/Social Hx Substance Use: Yes (marijuana several times weekly) Hx Alcohol Use: No Hx Anxiety: No Hx Depression: No Mental Illness: No Hx Dementia: No Miscellaneous Hx Cancer: No Recent Exposure to Contagious Disease: No Hx of C-Diff: No Any Loose Teeth: No Allergies codeine Adverse Reaction (Verified 08/08/23 08:46) very hard to awaken Iodine and Iodide Containing Produc Adverse Reaction (Verified 08/08/23 08:46) Hives Penicillins Adverse Reaction (Verified 08/08/23 08:46) Rash Discharge Is Pt Admitted From a [facility], or a Residential: No After D/C, Where Do you Plan to Go: Return Home Vital Signs Vital Signs Vital Signs: 08/09/23 06:54 08/09/23 06:54 Temperature 97.9 F Temperature Source Temporal Pulse Rate 72 Respiratory Rate 18 Respiratory Pattern Normal Blood Pressure 171/78 H Blood Pressure Mean 109 Blood Pressure Source Monitor Blood Pressure Position Semi-Fowlers Blood Pressure Location Right Arm Pulse Ox 99 Oxygen Delivery Method Room Air Weight Weight: 159 lb 6.307 oz Body Mass Index (BMI) 29.1 Physical Exam Const alert, oriented x3 and no apparent distress HEENT normocephalic and head/scalp atraumatic Resp normal respiratory effort Cardio regular rate GI soft to palpation and non-tender; Negative for non-distended Palpation: Negative for guarding Extremity no clubbing, cyanosis or edema Neuro CN's II-XII intact bilaterally Psych mental status grossly normal Assessment & Plan Assessment/Plan (1) Hx of colonic polyps: (2) Epigastric pain: (3) GERD (gastroesophageal reflux disease): PLAN: Plan We will do an EGD and colonoscopy Surgery Risks - Colonoscopy I discussed with the patient the risks of the procedure: Yes Risks Include but are not Limited To: Risks include but are not limited to: Bleeding, perforation requiring further surgery, inability to complete colonoscopy requiring barium enema. 08/09/23 0752 <Electronically signed by Scarlett Cross MD> Cosigner Signature (if applicable): CC: Dr. Scarlett Cross MD; 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 Advance Directives and Living Will Power of Residential Sales Manager Documents on File Type Date Recorded 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 Expl anation ACP-Advance Directive ACP-Power of Residential Sales Manager Documents on File Type Date Recorded 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 Watch for signs of infection red-hot swelling pain Have her wound checked in 2-3 days. If any problems concerns * Attachments The following attachments cannot be sent through Care Everywhere. * Hand Laceration: Stitches (Citizen Of [place]) documented in this encounter* Attachments The following attachments cannot be sent through Care Everywhere. * Rib Fracture (Citizen Of [place]) documented in this encounter* Instructions* Luciano Johnson MD - 02/18/2020 Avoid the nonsteroidal anti-inflammatory drugs pain pill your doctor prescribed (Etoladac) for at least the next week, and double your omeprazole for the next week. Try [id number] Maalox or Tums as well. Expect steady improvement. Follow-up with your doctor if not better. * Attachments The following attachments cannot be sent through Care Everywhere. * Gastritis (Citizen Of [place]) documented in this encounter* Instructions* Lenny Duran MD - 06/13/2020 Increase your amitriptyline dose at bedtime to 25 mg Continue to try to follow up with a psychiatrist or your primary care doctor for further medical management Try to obtain psychotherapist trained in mindfulness based cognitive behavioral therapy Keep working on the breathing exercises we discussed improved sleep hygiene and drink lots of waterand avoid alcohol as it is a depressant drug Work on mindfulness meditation as we discussed * Attachments The following attachments cannot be sent through Care Everywhere. * Video: Alcohol: Time for a Change? (Citizen Of [place]) * Video: Alcohol: The Space It Takes Up in Your Life (Citizen Of [place]) * Video: Anxiety: Paying Attention to How You're Doing (Citizen Of [place]) * Video: Anxiety: How to Change Anxious Thoughts (Citizen Of [place]) * Depression: Self Care (Citizen [place]) documented in this encounter Assessments Diagnosis Laceration of left thumb without foreign body without damage to nail, sequela- Primary Diagnosis Closed fracture of one rib of right side, initial encounter- Primary Diagnosis Acute bilateral thoracic back pain Pain of upper abdomen Abdominal pain, other specified site Diagnosis Acute gastritis without hemorrhage, unspecified gastritis type Diagnosis Anxiety Anxiety state, unspecified Depression, unspecified depression type Alcohol use disorder, moderate, in controlled environment (HCC) Gastroesophageal reflux disease without esophagitis Esophageal reflux Reason for Referral Status Reason Specialty Diagnoses / Procedures Referre d By Contact Referred To Contact Closed Radiology Diagnoses Cervical myelopathy (HCC) Ataxia Procedures MRI CERVICAL SPINE WO CONTRAST Reilly Peters MD [address] [place] [id number] Chief Complaint and Reason for Visit Chief Complaint ETOH ABUSE/WITHDRAWL Reason for Visit Alcohol abuse with p hysiological dependence Alcohol withdrawal Anxiety with depression History of gastroesophageal reflux (GERD) Chief Complaint ETOH ABUSE/WITHDRAWL ETOH ABUSE/WITHDRAWL ETOH ABUSE/WITHDRAWL ETOH ABUSE/WITHDRAWL UPPER AND LOWER FOR GERD Reason for Visit Alcohol withdrawal GERD (gastroesophageal reflux disease) Hx of colonic polyps Epigastric pain GERD (gastroesophageal reflux disease) Hx of colonic polyps Epigastric pain Additional Source Comments INFORMATION SOURCE (unrecogn ized section and content) DATE CREATED AUTHOR 12/30/2018 [facility] DATE CREATED AUTHOR AUTHOR'S ORGANIZ ATION 09/19/2019 [facility] DATE CREATED AUTHOR AUTHOR'S ORGANIZ ATION 09/21/2019 [facility] DATE CREATED AUTHOR AUTHOR'S ORGANIZ ATION 05/26/2021 [facility] DATE CREATED AUTHOR AUTHOR'S ORGANIZ ATION 07/08/[address] [facility] DATE CREATED AUTHOR AUTHOR'S ORGANIZ ATION 08/18/2023 [facility] DATE CREATED AUTHOR AUTHOR'S ORGANIZ ATION 04/04/2024 [facility] Reason for Visit (unrecogniz ed section and content) Reason Comments Laceration top of L thumb per e xacto knife Reason Comments Rib Pain (injury) Fall Reason Comments Abdominal Pain Reason Comments Anxiety Reason Comments Dental Pain Reason Onset Date Comments Med Refill 01/11/2023 Care Teams (unrecognized sec tion and content) Team Status: Active Member Role Status Dates [facility] Family Provider Active [facility] Primary Care Provider A ctive Team Status: Inactive Member Role Status [facility] Primary C are Provider, Attending Provider, Referring Provider Active Angelic Oliva MOVE COORDINATOR, MOVE COORDINATOR-C Other Provider Active Morning Caregiver Relationship Specialty Start Date End Date [facility], [facility] [address] [place] [address] PCP - General 04/29/23 Team Status: Active Member Role Status Dates [facility] Primary Care Provider A ctive Dr. Adam Mark MD Emergency Provider Active Dr. Jennifer Jeffries MD Admit Provider, Attending Prov ider Active Team Status: Active Member Role Status [facility] Primary Care Provider A ctive Dr. Adam Mark MD Emergency Provider Active Dr. Jennifer Jeffries MD Admit Provider, Other Provider Active Dr. Greg Crawford MD Attending Provider, Other Provid er Active Team Status: Active Member Role Status Dates [facility] Primary Care Provider A ctive Dr. Adam Mark MD Emergency Provider Active Dr. Jennifer Jeffries MD Admit Provider, Other Provider Active Dr. Kishan Vizcarra DO Attending Provider, Other Provid er Active Dr. Greg Crawford MD Other Provider Active Team Status: Inactive Member Role Status [facility] Primary Care Provider, Referring Provider Active Dr. Scarlett Cross MD Attending Provider Active Team Status: Active Member Role Status [facility] Primary Care Provider, Referring Provider Active Dr. Scarlett Cross MD Attending Provider, Other Pro vider Active Team Status: Inactive Member Role Status [facility] Primary Care Provider A ctive Dr. Adam Mark MD Emergency Provider Active Dr. Jennifer Jeffries MD Admit Provider, Other Provider Active Dr. Kishan Vizcarra DO Attending Provider Active Dr. Greg Crawford MD Other Provider Active Morning Caregiver Relationship Specialty Start Date End Date Lisa Johnson MD [address], [place] [id number] PCP - General 03/16/19 01/09/23 Eliseo Jaime MD [address] [place] [id number] PCP - General Family Medicine 01/10/23 Morning Caregiver Relationship Specialty Start Date End Date Eliseo Jaime MD [address] [place] [id number] PCP - General Family Medicine 01/10/23 Morning Caregiver Relationship Specialty Start Date End Date Eliseo Jaime MD [address] [place] [id number] PCP - General Family Medicine 01/10/23 Goals (unrecognized section and content) Goals may be documented in a n alternate sectionGoals may be documented in an alternate section FOR RECORDS PERTAINING TO PATIENTS WHO ARE OR HAVE BEEN ENROLLED IN A CHEMICAL DEPENDENCY/SUBSTANCEABUSE PROGRAM, SOME INFORMATION MAY BE OMITTED. This clinical summary was aggregated from multiple sources. Caution should be exercised in using it in the provision of clinical care. This summary normalizes information from multiple sources, and as a consequence, information in this document may materially change the coding, format and clinical context of patient data. In addition, data may be omitted in some cases. CLINICAL DECISIONS SHOULD BE BASED ON THE PRIMARY CLINICAL RECORDS. [employer] provides no warranty or guarantee of the accuracy or completeness of information in this document.
[2025-08-04 11:55] LABS: Barbiturate Urine NEGATIVE (< 200 ng/mL); Benzodiazepine Urine NEGATIVE (< 200 ng/mL); PCP Urine NEGATIVE (< 25 ng/mL); THC Urine PRESUMPTIVE POSITIVE (< 50 ng/mL)
--- NOTE | 2025-08-04 13:28 | PCM.HP.STD ---
HPI - General General Date of Admission: 08/04/25 HPI Narrative RAINER ECKERT, is a 60 F who presents to the hospital requesting detox from alcohol. She has been a heavy drinker for the last 10 years and has gone through detox once before. Her last drink was yesterday where she had multiple shots of whiskey and still feels a little bit drunk. Her blood alcohol level is normal. She does seem a little bit hemoconcentrated on lab work with the hemoglobin is 16.4 and she received some IV fluids in the emergency room. [facility] Medical History Wears glasses Wears dentures MRSA infection PTSD (post-traumatic stress disorder) Marijuana use High cholesterol Injury of back Smoker Vocal cord disease History of gastroesophageal reflux (GERD) Alcohol abuse with physiological dependence Anxiety with depression Alcohol abuse Overweight Anxiety and depression Tobacco use Hyperlipidemia GERD (gastroesophageal reflux disease) Hypertension Home Medications Medication Instructions Recorded Last Taken Type lisinopril 5 mg tablet 5 mg PO DAILY 06/07/23 08/03/25 History pantoprazole 40 mg tablet,delayed 40 mg PO BID 07/03/23 Unknown History release atorvastatin 10 mg tablet 10 mg PO QHS 08/04/25 08/03/25 History diphenhydramine HCl 25 mg capsule 25 mg PO QHS PRN allergy symptoms 08/04/25 Unknown History (Allergy Relief (diphenhydramine)) duloxetine 60 mg capsule,delayed 120 mg PO DAILY 08/04/25 08/03/25 History release hydroxyzine HCl 25 mg tablet 25 mg PO Q8H PRN PRN anxiety 08/04/25 Unknown History levocetirizine 5 mg tablet 5 mg PO DAILY 08/04/25 08/03/25 History losartan 25 mg tablet 25 mg PO DAILY 08/04/25 08/03/25 History Allergy/AdvReac Type Severity Reaction Status Date / Time codeine AdvReac very hard Verified 08/04/25 08:45 to awaken Iodine and Iodide Containing AdvReac Hives Verified 08/04/25 08:45 Produc Penicillins AdvReac Rash Verified 08/04/25 08:45 Family History Mother CVA (cerebral vascular accident) Hypertension Heart disease Diabetes Father Alcoholism Sister Cancer pancreatic Surgical History S/P foot surgery, right History of oral surgery H/O rectal polypectomy Social History household members: none Smoking Status: Current every day smoker tobacco type: cigarettes alcohol intake: current alcohol intake frequency: 3 or more drinks per day details: Several crown drinks daily. substance use type: marijuana ROS Constitutional Constitutional: Denies chills, fatigue, fever(s) or malaise Eyes Eyes: Denies blurry vision ENT HEENT: Denies headache(s) or nasal discharge Cardiovascular Cardiovascular: Denies chest pain, dyspnea on exertion or syncope Respiratory/Chest Respiratory/Chest: Denies cough, shortness of breath at rest or shortness of breath with exertion Gastrointestinal Gastrointestinal: Denies constipation, diarrhea, nausea or vomiting Genitourinary Genitourinary: Denies dysuria Neurologic Neurologic: Denies focal weakness, numbness or tremor(s) Psychiatric Psychiatric: Reports anxiety and depression Vital Signs Vital Signs Vital Signs: 08/04/25 08:44 08/04/25 10:00 08/04/25 10:43 Temperature 97.4 F L Temperature Source Oral Pulse Rate 92 86 87 Respiratory Rate 18 15 15 Blood Pressure 162/95 H 169/96 H 172/92 H Blood Pressure Mean 117 120 118 Blood Pressure Source Monitor Blood Pressure Position Sitting Blood Pressure Location Left Forearm Pulse Ox 97 97 98 Oxygen Delivery Method Room Air Room Air 08/04/25 11:32 Temperature 98.6 F Temperature Source Pulse Rate 84 Respiratory Rate 18 Blood Pressure 156/85 H Blood Pressure Mean 108 Blood Pressure Source Blood Pressure Position Blood Pressure Location Pulse Ox 98 Oxygen Delivery Method Weight Weight: 151 lb 1 oz Body Mass Index (BMI) 27.6 Physical Exam Narrative General: Alert, Oriented x3, Cooperative, tearful HEENT: Atraumatic, PERRLA, EOMI, Normocephalic Oral: Moist Mucosa Neck: Supple, No JVD Lungs: Diminished, Normal air movement, No rhonchi, No wheeze, No rales Cardiovascular: Regular rate, Regular Rhythm, Normal S1, Normal S2, No murmurs Abdomen: Soft, Non Tender, Non-Distended, No Hepato-splenomegaly Extremities: No edema, Capillary Refill Less than 3 Seconds Skin: No rashes, No breakdown Musculoskeletal: No Tenderness to Palpation of Joints or Extremities Neurological: No focal neurological deficits, moves all extremities Psych/Mental Status: Anxious Results Lab / Micro Data 08/04/25 09:40 08/04/25 09:40 Labs: Laboratory Results - last 24 hr 08/04/25 09:40: WBC 6.2, RBC 4.74, Hgb 16.4 H, Hct 47.3 H, MCV 99.8 H, MCH 34.6 H, MCHC 34.7, RDW Std Deviation 49.7 H, RDW Coeff of [place] 13.3, Plt Count 350, MPV 9.1, Immature Gran % (Auto) 0.200, Neut % (Auto) 61.0, Lymph % (Auto) 28.2, [place] % (Auto) 8.2, Eos % (Auto) 1.6, Baso % (Auto) 0.8, Absolute Neuts (auto) 3.8, Absolute Lymphs (auto) 1.76, Nucleated RBC % 0, Sodium 141, Potassium 3.3, Chloride 103, Carbon Dioxide 21.0, Anion Gap 17 H, BUN 6, Creatinine 0.74, Estim Creat Clear Calc 71.51, Est GFR (MDRD) Non-Af 91, BUN/Creatinine Ratio 8.7 L, Glucose 149 H, Calcium 9.3, Magnesium 2.6 H, Total Bilirubin 0.39, AST 96 H, ALT 104 H, Alkaline Phosphatase 130 H, Total Protein 7.5, Albumin 4.4, Globulin 3.1, Albumin/Globulin Ratio 1.4, Ethyl Alcohol < 10.1 08/04/25 11:07: Urine Opiates Screen NEGATIVE, U Buprenorphine Qual NEGATIVE, Ur Oxycodone Screen NEGATIVE, Urine Methadone Screen NEGATIVE, Urine Fentanyl Screen NEGATIVE, Ur Barbiturates Screen NEGATIVE, Ur Phencyclidine Scrn NEGATIVE, Ur Amphetamines Screen NEGATIVE, U Benzodiazepines Scrn NEGATIVE, Urine Cocaine Screen NEGATIVE, U Cannabinoids Screen PRESUMPTIVE POSITIVE Assessment & Plan Assessment/Plan (1) Alcohol abuse: PLAN: Plan 1. Requesting alcohol detox/tobacco abuse/anxiety/depression – Last drink was yesterday – Discussed tobacco cessation, she does not think a nicotine patch will help – Continue with the alcohol withdrawal protocol – Will have her follow-up with 180 – Discussed possibility of inpatient rehab after detox which she is considering – Can resume her home mental health medications 2. Essential HTN/HLD – Will resume her losartan – Continue with Lipitor – Will monitor and make adjustments as necessary 3. GERD – Stable – Continue with PPI DVT: Ambulation Charges/Coding Visit Charges Inpatient E&M: 61086 Init Hosp L2
[2025-08-04] MEDS: hydrOXYzine PAM 25 MG Capsule 50 MG PO ×2 (14:35→18:36)
--- NOTE | 2025-08-04 21:47 | CASEMGMT ---
Social Work Treatment Navigator for [facility] notified of patient to be admitted, patient requesting detox from alcohol. Mayte De León, A P SUPERVISOR, CLINICAL RESEARCH PHYSICIAN
[2025-08-04] MEDS: 0.9% Saline Lock 10 ML Syringe IV (22:24)
[2025-08-05] VITALS (7 sets, daily range): BP systolic 116–163; BP diastolic 74–105; PULSE 67–80; RESP 15–18; TEMP 36.5–37; O2SAT 95–100
[2025-08-05] MEDS: hydrOXYzine PAM 25 MG Capsule 50 MG PO ×4 (06:31→18:11)
[2025-08-05] MEDS: FLU VACCINE 2025-26(6MOS UP) 45 MCG/0.5 ML SYRINGE IM (09:45)
[2025-08-05] MEDS: Thiamine Hydrochloride 100 MG Tablet PO (09:46)
--- NOTE | 2025-08-05 10:16 | PCM.PN.HOSP ---
Subjective Subjective CIWA score of 5 Objective Data Objective Data Vital Signs: Vital Signs Temp Pulse Resp BP Pulse Ox O2 Del Method 98.1 F 73 16 137/99 H 100 Room Air 08/05/25 09:40 08/05/25 09:40 08/05/25 09:40 08/05/25 09:40 08/05/25 09:40 08/05/25 09:40 Oxygen Delivery Method Room Air Weight: 153 lb Body Mass Index (BMI) 28.0 Intake & Output: Intake and Output for Last 24 Hours 08/04/25 08/05/25 08/06/25 03:59 03:59 03:59 Intake Total 1900 / 1900 200 / 200 Balance 1900 / 1900 200 / 200 Lab / Micro Data 08/04/25 09:40 08/04/25 09:40 Labs: Laboratory Results - last 24 hr 08/04/25 11:07: Urine Opiates Screen NEGATIVE, U Buprenorphine Qual NEGATIVE, Ur Oxycodone Screen NEGATIVE, Urine Methadone Screen NEGATIVE, Urine Fentanyl Screen NEGATIVE, Ur Barbiturates Screen NEGATIVE, Ur Phencyclidine Scrn NEGATIVE, Ur Amphetamines Screen NEGATIVE, U Benzodiazepines Scrn NEGATIVE, Urine Cocaine Screen NEGATIVE, U Cannabinoids Screen PRESUMPTIVE POSITIVE Physical Exam Narrative General: Alert, Oriented x3, Cooperative, tearful HEENT: Atraumatic, PERRLA, EOMI, Normocephalic Oral: Moist Mucosa Neck: Supple, No JVD Lungs: Diminished, Normal air movement, No rhonchi, No wheeze, No rales Cardiovascular: Regular rate, Regular Rhythm, Normal S1, Normal S2, No murmurs Abdomen: Soft, Non Tender, Non-Distended, No Hepato-splenomegaly Extremities: No edema, Capillary Refill Less than 3 Seconds Skin: No rashes, No breakdown Musculoskeletal: No Tenderness to Palpation of Joints or Extremities Neurological: No focal neurological deficits, moves all extremities Psych/Mental Status: Anxious Assessment & Plan Assessment/Plan (1) Alcohol abuse: PLAN: Plan 1. Requesting alcohol detox/tobacco abuse/anxiety/depression – Last drink was yesterday – Discussed tobacco cessation, she does not think a nicotine patch will help – Continue with the alcohol withdrawal protocol – Will have her follow-up with 180 – Discussed possibility of inpatient rehab after detox which she is considering – Can resume her home mental health medications 2. Essential HTN/HLD – Will resume her losartan – Continue with Lipitor – Will monitor and make adjustments as necessary 3. GERD – Stable – Continue with PPI DVT: Ambulation Charges/Coding Visit Charges Inpatient E&M: 99082 Subs Hosp L2
--- NOTE | 2025-08-05 11:14 | ADDICTION ---
Met with pt to complete [facility] assessments. Pt was emotional about her drinking hx and reported she felt very guilty and shameful. She reports she has had heightened anxiety due to having to take care of her daughter who recently had 4 strokes. Resources were given for the [facility] per request.
[2025-08-05] MEDS: Senna Tablet 2 TABLET PO (18:58)
[2025-08-05] MEDS: 0.9% Saline Lock 10 ML Syringe IV (22:30)
[2025-08-06 02:44] VITALS: BP 131/82; PULSE 83; RESP 16; TEMP 37.1; O2SAT 100
[2025-08-06 06:09] VITALS: BP 137/96; PULSE 73; RESP 16; TEMP 36.7; O2SAT 98
[2025-08-06] MEDS: hydrOXYzine PAM 25 MG Capsule 50 MG PO (06:10)
[2025-08-06] MEDS: Thiamine Hydrochloride 100 MG Tablet PO (07:39)
[2025-08-06 07:43] VITALS: BP 111/84; PULSE 76; RESP 16; TEMP 36.6; O2SAT 99
[2025-08-06 09:52] LABS: Anion Gap 11 (5-15); BUN 8 mg/dL (4-19); BUN/Creat Ratio 12.9 RATIO (10-20); Calcium,Total 8.5 mg/dL (7.6-11.0); Carbon Dioxide 21.1 mmol/L (21.0-32.0); Chloride 106 mmol/L (98-108); Estimated Creatinine Clearance 80.67 ml/min (50-250); Glucose 101 mg/dL (70-99); Potassium 4.0 mmol/L (3.3-5.1)
--- NOTE | 2025-08-06 11:32 | PCM.DC.SUM ---
Providers Date of Admission: 08/04/25 Primary Care Physician: Angelic Oliva [facility], [facility] Reason For Visit: ETOH DETOX Diagnosis Discharge Diagnosis (1) Alcohol abuse: Status: Acute Code(s): F10.10 - Alcohol abuse, uncomplicated Medications at Discharge Home Medications pantoprazole 40 mg tablet,delayed release 40 mg PO BID 07/03/23 atorvastatin 10 mg tablet 10 mg PO QHS 08/04/25 diphenhydramine HCl 25 mg capsule (Allergy Relief (diphenhydramine)) 25 mg PO QHS PRN allergy symptoms 08/04/25 duloxetine 60 mg capsule,delayed release 120 mg PO DAILY 08/04/25 hydroxyzine HCl 25 mg tablet 25 mg PO Q8H PRN PRN anxiety 08/04/25 levocetirizine 5 mg tablet 5 mg PO DAILY 08/04/25 losartan 25 mg tablet 25 mg PO DAILY 08/04/25 Hospital Course Operations None Procedures None Summary of Care Provided Minutes Spent on Discharge: 36 Hospital Course: Per HPI: RAINER ECKERT, is a 60 F who presents to the hospital requesting detox from alcohol. She has been a heavy drinker for the last 10 years and has gone through detox once before. Her last drink was yesterday where she had multiple shots of whiskey and still feels a little bit drunk. Her blood alcohol level is normal. She does seem a little bit hemoconcentrated on lab work with the hemoglobin is 16.4 and she received some IV fluids in the emergency room. Hospital Course: 1. Requesting alcohol detox/tobacco abuse/anxiety/depression – Last drink was yesterday – Discussed tobacco cessation, she does not think a nicotine patch will help – Continue with the alcohol withdrawal protocol – Will have her follow-up with 180 – Discussed possibility of inpatient rehab after detox which she is considering – Can resume her home mental health medications – I did have an extensive discussion with her today about discharge between inpatient rehab and outpatient therapy. We also discussed the role of Vivitrol she was interested in Vivitrol infusion prior to discharge however she decided to leave AMA today 2. Essential HTN/HLD – Will resume her losartan – Continue with Lipitor – Will monitor and make adjustments as necessary 3. GERD – Stable – Continue with PPI DVT: Ambulation Physical Exam Narrative General: Alert, Oriented x3, Cooperative, tearful HEENT: Atraumatic, PERRLA, EOMI, Normocephalic Oral: Moist Mucosa Neck: Supple, No JVD Lungs: Diminished, Normal air movement, No rhonchi, No wheeze, No rales Cardiovascular: Regular rate, Regular Rhythm, Normal S1, Normal S2, No murmurs Abdomen: Soft, Non Tender, Non-Distended, No Hepato-splenomegaly Extremities: No edema, Capillary Refill Less than 3 Seconds Skin: No rashes, No breakdown Musculoskeletal: No Tenderness to Palpation of Joints or Extremities Neurological: No focal neurological deficits, moves all extremities Psych/Mental Status: Anxious Weight / BMI Weight Weight: 153 lb Body Mass Index (BMI) 28.0 ABG / Lab / Microbiology Data 08/04/25 09:40 08/06/25 08:58 Laboratory: Laboratory Results - last 24 hr 08/06/25 08:58: Sodium 137, Potassium 4.0, Chloride 106, Carbon Dioxide 21.1, Anion Gap 11, BUN 8, Creatinine 0.66 L, Estim Creat Clear Calc 80.67, Est GFR (MDRD) Non-Af 99, BUN/Creatinine Ratio 12.9, Glucose 101 H, Calcium 8.5 D/C Instructions DC O2, CPAP, BIPAP Needs Home O2 Discharge instructions: No Meaningful Use Info Meaningful Use Meaningful Use Diagnoses (Choose all that apply): None applicable Discharge Plan Admission Admit Date/Time: 08/04/25 12:52 Attending Provider: Lc Cisneros Primary Care Provider: Angelic Oliva Discharge Orders/Prescriptions Prescriptions: No Action pantoprazole 40 mg tablet,delayed release (DR/EC) 40 mg PO BID Patient Comments: take 1 tablet by mouth twice a day atorvastatin 10 mg tablet 10 mg PO QHS losartan 25 mg tablet 25 mg PO DAILY hydroxyzine HCl 25 mg tablet 25 mg PO Q8H PRN PRN (Reason: anxiety) duloxetine 60 mg capsule,delayed release(DR/EC) 120 mg PO DAILY levocetirizine 5 mg tablet 5 mg PO DAILY diphenhydramine HCl [Allergy Relief(diphenhydramin)] 25 mg capsule 25 mg PO QHS PRN (Reason: allergy symptoms) Referrals / Follow Up: Angelic Oliva, [facility] [Primary Care Provider, Family Practice] Disposition Disposition (needs filled in before D/C Order can be placed): Home, Self Care Charges/Coding Visit Charges Inpatient E&M: 35924 Disch Hosp >30min
== END 2025-08-06 10:10 | disposition home or self-care (01) | DRG 775 ==
LOC: ED 09:29 → MS3 13:11
PROVIDERS: Admitting Provider Family Medicine; Emergency Provider Surgery; PCP Nurse Practitioner Family; Visit Provider Family Medicine
DX: F10.10 Alcohol abuse, uncomplicated (principal); E78.00 Pure hypercholesterolemia, unspecified; I10 Essential (primary) hypertension; F32.A Depression, unspecified; F17.210 Nicotine dependence, cigarettes, uncomplicated; K21.9 Gastro-esophageal reflux disease without esophagitis; F41.9 Anxiety disorder, unspecified; Z79.899 Other long term (current) drug therapy; Y90.0 Blood alcohol level of less than 20 mg/100 ml
CPT/HCPCS: 80048; 80053; 80307; 82077; 83735; 85025; 99285; 99406; A4216